=== PATIENT | male | born 1930 | race Caucasian/White ===

== ENCOUNTER → 2016-06-06 | Outpatient (CLI) | payer MEDICARE, BC ==
--- NOTE | 2016-06-06 13:39 | PN ---
DATE OF SERVICE: 06/06/2016 85-year-old gentleman who has been followed in the sleep center for treatment of obstructive sleep apnea-hypopnea syndrome and insomnia. Patient continued to use his BiPAP equipment every night for the whole night, pressure 8/5 cm of water. Recently patient had some problems with his machine and was checked and ( ) medical equipment company and at the present time machine according to the patient works well. He did not bring machine for his visit today. The patient continues to use Ambien at night to help him to fall asleep and he feels well with that. There is no any problem with sleep while he is using Ambien. [place] Sleepiness Scale is 8. MEDICATIONS: 1. Zoloft. 2. Hydrochlorothiazide. 3. Simvastatin. 4. Flomax. 5. Coreg. 6. Ambien. 7. Proscar. 8. Neurontin. 9. Baclofen. During physical exam, the patient in no distress. VITAL SIGNS: BP 116/60, HR 72, RR 18, height 5 feet 6 inches. Weight 231, weight is about 6 pounds more than during the previous visit. BMI 37.1. Neck 21 inches in circumference. Temp is 97.4. Oxygen saturation at room air 91%. HEENT: PERRLA, EOMI oropharynx low position of soft palate. HEART: Systolic murmur on aorta. Otherwise S1, S2 regular. ABDOMEN: Obese. EXTREMITIES: 1+ ankle edema. Patient has some difficulties to walk secondary to pain secondary to neuropathy in the lower part of his legs. IMPRESSION: 1. Obstructive sleep apnea-hypopnea syndrome. No snoring with the CPAP. No significant excessive daytime sleepiness. 2. Insomnia with difficulties to initiate sleep on control with low-dose of Ambien. 3. Hypertension. 4. Depression. 5. Obesity. Weight increase in about 6 pounds. 6. Hyperlipidemia. 7. History of acid reflux. 8. History of prostate cancer, 9. Status post back surgery. 10. Status post bilateral hip replacement. 11. 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 PLAN: 1. Continue treatment with BiPAP every night for the whole night. 2. Continue treatment with Ambien with the same low dose. 3. Watching and losing weight. 4. Sleep hygiene with regular time in bed for at least 8 hours. 5. Precautions related to driving. 6. No driving if feeling any sleepiness. 7. Fall precautions. 8. Follow-up visit in 6 months. Thank you very much for allowing me to participate in the management of your patient. The patient should bring his machine to check during the follow-up visit. Sincerely, Rory Smyth MD, PhD, FAASM. Diplomat of [place] [employer], Sleep Medicine Board by [place] [employer] [place] [employer] [facility] [place]
== END | disposition home or self-care (01) ==
LOC: SLEEP 11:12
PROVIDERS: ATTEND Internal Medicine
DX: G47.33 Obstructive sleep apnea (adult) (pediatric) (principal); E66.9 Obesity, unspecified; Z68.37 Body mass index [BMI] 37.0-37.9, adult; G47.00 Insomnia, unspecified; I10 Essential (primary) hypertension; F32.9 Major depressive disorder, single episode, unspecified; E78.5 Hyperlipidemia, unspecified; K21.9 Gastro-esophageal reflux disease without esophagitis; Z85.46 Personal history of malignant neoplasm of prostate; Z98.890 Other specified postprocedural states; Z96.643 Presence of artificial hip joint, bilateral; G62.9 Polyneuropathy, unspecified; Z79.899 Other long term (current) drug therapy

== ENCOUNTER → 2016-12-19 | Outpatient (CLI) | payer MEDICARE, BC ==
--- NOTE | 2016-12-20 07:57 | PN ---
PROGRESS NOTE Date of Service: DATE OF SERVICE: 12/19/2016. An 86-year-old gentleman who has been followed in the Sleep Center for treatment of obstructive sleep apnea-hypopnea syndrome. The patient is on treatment with BiPAP. Continues to use his equipment every night without significant problem although sometimes his mask goes off and he continues to use Ambien 5 mg at bedtime to help him to fall asleep. Without Ambien he cannot fall asleep. I checked his BiPAP unit. Usage is every night 30 out of 30 nights more than 4 hours a day. Average usage is 8 hours. BiPAP pressure is 8/5 cm of water. Apnea-hypopnea index for the last month is 20.0. For the last night 41.3. Leak is up to 25% for the last month. According to machine there is a possibility of 30% of periodic breathing. [place] Sleepiness Scale today is 4. Patient's weight today is 225 pounds, which is about 10 pounds more than during the previous BiPAP titration. I reviewed results of previous BiPAP titration also and present BiPAP pressure was effective at the time of previous titration. MEDICATIONS: Zoloft, Hydrochlorothiazide, simvastatin, Flomax, Coreg, Ambien, Proscar, Neurontin, baclofen. EXAM: During physical exam patient in no distress. BP 155/83, HR 74, RR 16. Height 5 feet 6. Weight 225 pounds. BMI is 36.3, temp 97.9, Oxygen saturation on room air 91%. HEENT PERRLA, EOMI, evaluation of oropharynx showed low position of soft palate. Neck Supple, no JVD. Thyroid is not palpable. LUNGS Clear to percussion and to auscultation. Good air exchange. No wheezing or rhonchi. HEART Systolic murmur on aorta. ABDOMEN Obese. Soft and nontender. Bowel sounds are present. No organomegaly appreciated. EXTREMITIES Basically no swelling of the legs. No clubbing or cyanosis. FISHING VESSEL OPERATOR Awake, alert, and oriented X3. Cranial nerves 2 to 7 intact. There is no fasciculation or atrophy. noted. No focal deficits observed. IMPRESSION: 1. Obstructive sleep apnea-hypopnea syndrome. The patient demonstrated 100% compliance with treatment, but according to reading from the machine he has some abnormalities of respirations at the present time at a significant level while using his BiPAP equipment. 2. Obesity. 3. Hypertension. 4. History of cardiac arrhythmia. 5. History of depression. 6. History of prostate carcinoma. 7. History of acid reflux. 8. Hyperlipidemia. 9. Status post back surgery. 10.Status post bilateral hip replacement. 11.History of peripheral neuropathy. PLAN: 1. Will repeat BiPAP titration for re-evaluation of affective BiPAP pressure at the present time, and possibly check for different type of mask. 2. Continue to use BiPAP equipment every night. 3. Losing weight. 4. Sleep hygiene with regular time in bed for at least 8 hours. 5. Precautions related to driving. No driving if feeling any sleepiness. 6. Followup visit after titration. Thank you very much for allowing me to participate in management of your patient. SAM / IJN: [id number] /
== END ==
LOC: SLEEP 10:49
PROVIDERS: ATTEND Internal Medicine
DX: G47.33 Obstructive sleep apnea (adult) (pediatric) (principal); E66.9 Obesity, unspecified; I10 Essential (primary) hypertension; I49.9 Cardiac arrhythmia, unspecified; F32.9 Major depressive disorder, single episode, unspecified; K21.9 Gastro-esophageal reflux disease without esophagitis; E78.5 Hyperlipidemia, unspecified; Z85.46 Personal history of malignant neoplasm of prostate; Z96.643 Presence of artificial hip joint, bilateral; Z98.890 Other specified postprocedural states; G62.9 Polyneuropathy, unspecified; Z79.899 Other long term (current) drug therapy

== ENCOUNTER → 2017-03-20 | Outpatient (CLI) | payer MEDICARE, BC ==
--- NOTE | 2017-03-20 18:13 | PN ---
PROGRESS NOTE DATE OF SERVICE: 03/20/2017 86-year-old gentleman has been followed in Sleep Center for treatment of obstructive sleep apnea-hypopnea syndrome. Results of the last CPAP titration recommended pressure of 15/11 cm of water of BiPAP. The patient is using his BiPAP unit. He came for followup visit today to check on how was everything working. He is able to use his machine every night, but sometimes according to the patient, the machine does not follow his respiration. When he is doing breath in, machine already starting to do it change the pressure for the exhalation visa versa. [place] Sleepiness Scale today is 3. I checked patient's unit. The patient using 25/30 nights for more than 4 hours. There is a high leak is 37%. Patient is using a full-face mask. Apnea-hypopnea index reading for the last month 9.1. For the last 7 days is 7.9. For the last night is 5.8. MEDICATIONS: Zoloft, hydrochlorothiazide, simvastatin, Flomax, Coreg, Proscar, Neurontin, Librax. PHYSICAL EXAM: Patient in no distress. BP 160/80, HR 78, RR 16, weight 223, temp 97.8, oxygen saturation on room air 93%, oropharynx low position of soft palate. Heart systolic murmur on aorta. ABDOMEN: Obese. Extremities 1+ ankle edema. Neck Supple, no JVD. Thyroid is not palpable. LUNGS Clear to percussion and to auscultation. Good air exchange. No wheezing or rhonchi. HEART S1, S2 regular. No murmurs, gallops, or rubs. ABDOMEN: Obese. Soft and nontender. Bowel sounds are present. No organomegaly appreciated. EXTREMITIES: No clubbing or cyanosis. HOSPITAL TRAY SERVICE WORKER Awake, alert, and oriented X3. Cranial nerves 2 to 7 intact. There is no fasciculation or atrophy. noted. No focal deficits observed. IMPRESSION: 1. Obstructive sleep apnea-hypopnea syndrome. The patient demonstrated great compliance with treatment benefitting from treatment. 2. According to patient no full synchronization of his breathing with the pressure in the machine. Sometimes machine makes the pressure for the exhalation and patient continued to do inhalation and vice versa. 3. History of severe periodic limb movements during titration. 4. Hypertension. 5. Obesity. 6. History of depression. 7. Hyperlipidemia. 8. History of prostate carcinoma. 9. History of acid reflux. 10.Status post back surgery. 11.Status post bilateral hip replacement. 12.Peripheral neuropathy. PLAN: 1. I will try to get for patient new BiPAP unit with the same pressure regimen of 15/11 cm of water to be sure that his respiration is currently with respiration in the machine. 2. We will consider to use different types of full face mask. 3. Continue to use BiPAP every night. 4. Sleep hygiene with regular time in bed for at least 8 hours. 5. No driving if feeling any sleepiness. 6. I want to check a oxygen level at night. Will consider to do oximetry on BiPAP to be sure that the patient oxygenation is normal. Thank you very much for allowing me to participate in management of your patient. Sincerely, Rory Smyth MD, PhD, FAASM Diplomat of [place] [employer] [place] [employer] Senior Business Development Manager of [facility] [place] MMODL / TAMIKON: [id number] /
== END ==
LOC: SLEEP 15:17
PROVIDERS: ATTEND Internal Medicine
DX: G47.33 Obstructive sleep apnea (adult) (pediatric) (principal); G47.61 Periodic limb movement disorder; I10 Essential (primary) hypertension; E66.9 Obesity, unspecified; F32.9 Major depressive disorder, single episode, unspecified; E78.5 Hyperlipidemia, unspecified; K21.9 Gastro-esophageal reflux disease without esophagitis; G62.9 Polyneuropathy, unspecified; Z96.643 Presence of artificial hip joint, bilateral; Z98.890 Other specified postprocedural states; Z85.46 Personal history of malignant neoplasm of prostate; Z79.899 Other long term (current) drug therapy

== ENCOUNTER 2017-07-12 17:09 | Inpatient (IN) | payer MEDICARE, BC ==
[2017-07-12] MEDS ORDERED: SODIUM CHLORIDE 0.9% 1,000 ML IV STA (18:57)
--- NOTE | 2017-07-12 19:00 | ED ---
General Adult HPI - General Chief complaint: Fall Stated complaint: Hypertensive Time Seen by Provider: 07/12/17 18:49 Source: patient, family, RN notes reviewed Mode of arrival: wheelchair Limitations: no limitations - History of Present Illness Initial comments: Patient is a pleasant 86-year-old male presenting to the emergency department concerns for blood pressure. Family took multiple readings today. Blood pressure has been as high as 180/110. Patient was given an extra dose of his Coreg today. Patient denies any significant injury however did fall twice. Patient does occasionally have falls. No head injury or loss of consciousness. No chest pain or weakness. - Related Data Home Medications Medication Instructions Recorded Confirmed CLIDINIUM-chlordiazePOXIDE [Librax] 1 - 2 tab PO DAILY 07/12/17 07/12/17 Carvedilol [Coreg] 6.25 mg PO BID 07/12/17 07/12/17 Ergocalciferol (Vitamin D2) 50,000 unit PO MO 07/12/17 07/12/17 [Vitamin D2] Finasteride [Proscar] 5 mg PO DAILY 07/12/17 07/12/17 Gabapentin [Neurontin] 200 mg PO BID 07/12/17 07/12/17 Hydrochlorothiazide [Hydrodiuril] 12.5 mg PO DAILY 07/12/17 07/12/17 Sertraline [Zoloft] 50 mg PO HS 07/12/17 07/12/17 Simvastatin [Zocor] 40 mg PO HS 07/12/17 07/12/17 Tamsulosin HCl [Flomax] 0.4 mg PO HS 07/12/17 07/12/17 Vit C/E/Zn/Coppr/Lutein/Zeaxan 1 cap PO HS 07/12/17 07/12/17 [Preservision Areds 2 Softgel] Zolpidem [Ambien] 5 mg PO HS 07/12/17 07/12/17 Allergies Allergy/AdvReac Type Severity Reaction Status Date / Time codeine AdvReac Hallucinati Verified 07/12/17 19:16 ons Review of Systems ROS Statement: Those systems with pertinent positive or pertinent negative responses have been documented in the HPI. ROS Other: All systems not noted in ROS Statement are negative. Constitutional: Denies: fever Eyes: Denies: eye pain ENT: Denies: ear pain Respiratory: Denies: cough Cardiovascular: Denies: chest pain Endocrine: Denies: fatigue Gastrointestinal: Denies: abdominal pain Genitourinary: Denies: dysuria Musculoskeletal: Denies: back pain Skin: Denies: rash Neurological: Denies: headache, weakness Past Medical History Past Medical History: Cancer, Hyperlipidemia, Hypertension, Sleep Apnea/CPAP/ BIPAP Additional Past Medical History / Comment(s): prostate cancer, IBS, irregular heartbeat History of Any Multi-Drug Resistant Organisms: None Reported Past Psychological History: No Psychological Hx Reported Smoking Status: Former smoker Past Alcohol Use History: None Reported Past Drug Use History: None Reported General Exam Limitations: no limitations General appearance: alert, in no apparent distress Head exam: Present: atraumatic Eye exam: Present: normal appearance, PERRL ENT exam: Present: normal oropharynx Neck exam: Present: normal inspection Respiratory exam: Present: normal lung sounds bilaterally Cardiovascular Exam: Present: irregular rhythm GI/Abdominal exam: Present: soft. Absent: tenderness Extremities exam: Present: normal inspection Neurological exam: Present: alert, CN II-XII intact. Absent: motor sensory deficit Psychiatric exam: Present: normal affect, normal mood Skin exam: Present: normal color Course Vital Signs 07/12/17 07/12/17 17:19 20:00 Temperature 98.1 F Pulse Rate 108 H 106 H Respiratory 20 Rate Blood Pressure 141/88 153/102 O2 Sat by Pulse 96 96 Oximetry EKG Findings - EKG Comments: EKG Findings:: Atrial fibrillation with rate of 94. QRS 92. QT 358. QTC 447. Left axis. Septal Q waves. Inferior Q waves. No acute ST change. Medical Decision Making - Medical Decision Making Patient reevaluated and resting comfortably in bed. Patient and family updated on results and plan. Secondary to slight elevation of troponin patient will be held for repeat testing. Case was discussed in detail with Dr. Macias, who will admit his patient. - Lab Data Result diagrams: 07/12/17 18:45 07/12/17 18:45 Lab Results 07/12/17 07/12/17 07/12/17 Range/Units 18:45 18:45 18:45 WBC 18.3 H (3.8-10.6) k/uL RBC 5.78 (4.30-5.90) m/uL Hgb 16.9 (13.0-17.5) gm/dL Hct 54.2 H (39.0-53.0) % MCV 93.7 (80.0-100.0) fL MCH 29.2 (25.0-35.0) pg MCHC 31.2 (31.0-37.0) g/dL RDW 13.7 (11.5-15.5) % Plt Count 462 H (150-450) k/uL Neutrophils % 83 % Lymphocytes % 8 % Monocytes % 7 % Eosinophils % 1 % Basophils % 0 % Neutrophils # 15.2 H (1.3-7.7) k/uL Lymphocytes # 1.4 (1.0-4.8) k/uL Monocytes # 1.3 H (0-1.0) k/uL Eosinophils # 0.1 (0-0.7) k/uL Basophils # 0.0 (0-0.2) k/uL PT (9.0-12.0) sec INR (<1.2) APTT (22.0-30.0) sec Sodium 140 (137-145) mmol/L Potassium 5.6 H (3.5-5.1) mmol/L Chloride 102 (98-107) mmol/L Carbon Dioxide 23 (22-30) mmol/L Anion Gap 15 mmol/L BUN 32 H (9-20) mg/dL Creatinine 1.10 (0.66-1.25) mg/dL Est GFR (CKD-EPI)AfAm 70 (>60 ml/min/1.73 sqM) Est GFR (CKD-EPI)NonAf 60 (>60 ml/min/1.73 sqM) Glucose 124 H (74-99) mg/dL Plasma Lactic Acid Miguel (0.7-2.0) mmol/L Calcium 9.9 (8.4-10.2) mg/dL Phosphorus 4.1 (2.5-4.5) mg/dL Magnesium 2.2 (1.6-2.3) mg/dL Total Bilirubin 0.5 (0.2-1.3) mg/dL AST 29 (17-59) U/L ALT 36 (21-72) U/L Alkaline Phosphatase 50 (38-126) U/L Total Creatine Kinase 32 L (55-170) U/L CK-MB (CK-2) 1.2 (0.0-2.4) ng/mL CK-MB (CK-2) Rel Index 3.8 Troponin I 0.039 H* (0.000-0.034) ng/mL Total Protein 8.1 (6.3-8.2) g/dL Albumin 4.3 (3.5-5.0) g/dL TSH 2.410 (0.465-4.680) mIU/L Free T4 1.04 (0.78-2.19) ng/dL Free T3 pg/mL 3.5 (2.8-5.3) pg/ml Urine Color Urine Appearance (Clear) Urine pH (5.0-8.0) Ur Specific [place] (1.001-1.035) Urine Protein (Negative) Urine Glucose (UA) (Negative) Urine Ketones (Negative) Urine Blood (Negative) Urine Nitrite (Negative) Urine Bilirubin (Negative) Urine Urobilinogen (<2.0) mg/dL Ur Leukocyte Esterase (Negative) Urine RBC (0-5) /hpf Urine WBC (0-5) /hpf Ur Squamous Epith Cells (0-4) /hpf Urine Bacteria (None) /hpf Hyaline Casts (0-2) /lpf Urine Mucus (None) /hpf 07/12/17 07/12/17 07/12/17 Range/Units 18:45 18:45 20:14 WBC (3.8-10.6) k/uL RBC (4.30-5.90) m/uL Hgb (13.0-17.5) gm/dL Hct (39.0-53.0) % MCV (80.0-100.0) fL MCH (25.0-35.0) pg MCHC (31.0-37.0) g/dL RDW (11.5-15.5) % Plt Count (150-450) k/uL Neutrophils % % Lymphocytes % % Monocytes % % Eosinophils % % Basophils % % Neutrophils # (1.3-7.7) k/uL Lymphocytes # (1.0-4.8) k/uL Monocytes # (0-1.0) k/uL Eosinophils # (0-0.7) k/uL Basophils # (0-0.2) k/uL PT 11.4 (9.0-12.0) sec INR 1.2 H (<1.2) APTT 26.7 (22.0-30.0) sec Sodium (137-145) mmol/L Potassium (3.5-5.1) mmol/L Chloride (98-107) mmol/L Carbon Dioxide (22-30) mmol/L Anion Gap mmol/L BUN (9-20) mg/dL Creatinine (0.66-1.25) mg/dL Est GFR (CKD-EPI)AfAm (>60 ml/min/1.73 sqM) Est GFR (CKD-EPI)NonAf (>60 ml/min/1.73 sqM) Glucose (74-99) mg/dL Plasma Lactic Acid Miguel 1.1 (0.7-2.0) mmol/L Calcium (8.4-10.2) mg/dL Phosphorus (2.5-4.5) mg/dL Magnesium (1.6-2.3) mg/dL Total Bilirubin (0.2-1.3) mg/dL AST (17-59) U/L ALT (21-72) U/L Alkaline Phosphatase (38-126) U/L Total Creatine Kinase (55-170) U/L CK-MB (CK-2) (0.0-2.4) ng/mL CK-MB (CK-2) Rel Index Troponin I (0.000-0.034) ng/mL Total Protein (6.3-8.2) g/dL Albumin (3.5-5.0) g/dL TSH (0.465-4.680) mIU/L Free T4 (0.78-2.19) ng/dL Free T3 pg/mL (2.8-5.3) pg/ml Urine Color Yellow Urine Appearance Cloudy (Clear) Urine pH 6.0 (5.0-8.0) Ur Specific [place] 1.015 (1.001-1.035) Urine Protein 2+ H (Negative) Urine Glucose (UA) Negative (Negative) Urine Ketones Negative (Negative) Urine Blood Negative (Negative) Urine Nitrite Negative (Negative) Urine Bilirubin Negative (Negative) Urine Urobilinogen <2.0 (<2.0) mg/dL Ur Leukocyte Esterase Negative (Negative) Urine RBC 1 (0-5) /hpf Urine WBC 4 (0-5) /hpf Ur Squamous Epith Cells <1 (0-4) /hpf Urine Bacteria Rare H (None) /hpf Hyaline Casts 3 H (0-2) /lpf Urine Mucus Rare H (None) /hpf - Radiology Data Radiology results: image reviewed (Chest x-ray shows basilar atelectasis or scarring. Correlate to exclude pneumonia. Follow-up suggested.) Disposition Clinical Impression: Hypertensive urgency Disposition: ADMITTED IP TO THIS HOSP Referrals: None,Stated [REFERRING] - 1-2 days Decision Time: 20:45
[2017-07-12 19:14] LABS: Basophils % (A) 0 %; Eosinophils # (A) 0.1 k/uL (0-0.7); Eosinophils % (A) 1 %; HCT 54.2 % (39.0-53.0); HGB 16.9 gm/dL (13.0-17.5); Lymphocytes # (A) 1.4 k/uL (1.0-4.8); Lymphocytes % (A) 8 %; MCH 29.2 pg (25.0-35.0); MCHC 31.2 g/dL (31.0-37.0); MCV 93.7 fL (80.0-100.0); Mean Platelet Volume 8.6; Monocytes # (A) 1.3 k/uL (0-1.0); Monocytes % (A) 7 %; Neutrophils # (A) 15.2 k/uL (1.3-7.7); Neutrophils % (A) 83 %; Platelet Count 462 k/uL (150-450); RBC 5.78 m/uL (4.30-5.90); RDW 13.7 % (11.5-15.5); WBC 18.3 k/uL (3.8-10.6)
--- NOTE | 2017-07-12 19:19 | XR ---
EXAMINATION TYPE: XR chest 2V DATE OF EXAM: 07/12/2017 COMPARISON: NONE HISTORY: Weakness and hypertension TECHNIQUE: Frontal and lateral views of the chest are obtained. FINDINGS: There are overlying cardiac leads and the patient is rotated. Heart is borderline enlarged . Patchy basilar density is noted. No evident pneumothorax or pleural effusion. Pulmonary vascularity and frederick within normal limits. Prominent lung lines may be indicative of COPD. IMPRESSION: Basilar atelectasis or scarring, correlate to exclude pneumonia. Follow-up suggested. Enrique rderline cardiomegaly.
[2017-07-12 19:26] LABS: Albumin 4.3 g/dL (3.5-5.0); Calcium 9.9 mg/dL (8.4-10.2); Magnesium 2.2 mg/dL (1.6-2.3); Phosphorus 4.1 mg/dL (2.5-4.5); Potassium 5.6 mmol/L (3.5-5.1); Total Bilirubin 0.5 mg/dL (0.2-1.3); Total Protein 8.1 g/dL (6.3-8.2)
[2017-07-12 19:33] LABS: INR 1.2 (<1.2); Partial Thromboplastin Time 26.7 sec (22.0-30.0); Prothrombin Time 11.4 sec (9.0-12.0)
[2017-07-12] MEDS ORDERED: METOPROLOL TARTRATE 5 MG/5 ML VIAL IVP STA ×2 (19:39→20:41)
[2017-07-12 19:40] LABS: T4, Free (Free Thyroxine) 1.04 ng/dL (0.78-2.19)
[2017-07-12] MEDS ORDERED: SODIUM CHLORIDE 0.9% 500 ML IV STA (19:45)
[2017-07-12 19:50] LABS: Creatine Kinase MB 1.2 ng/mL (0.0-2.4)
[2017-07-12 19:53] LABS: Troponin I 0.039 ng/mL (0.000-0.034)
[2017-07-12 20:31] LABS: Appearance,Urine Cloudy (Clear); Bacteria,Urine Rare /hpf; Bilirubin,Urine Negative (Negative); Blood,Urine Negative (Negative); Color,Urine Yellow; Glucose,Urine (UA) Negative (Negative); Hyaline Casts,Urine 3 /lpf (0-2); Ketones,Urine Negative (Negative); Leukocyte Esterase,Urine Negative (Negative); Mucus,Urine Rare /hpf; Nitrite,Urine Negative (Negative); Protein,Urine 2+ (Negative); RBC,Urine 1 /hpf (0-5); Specific Gravity,Urine 1.015 (1.001-1.035); Squamous Epithelial Cell,Urine <1 /hpf (0-4); Urobilinogen,Urine <2.0 mg/dL (<2.0); WBC,Urine 4 /hpf (0-5)
[2017-07-12] MEDS ORDERED: NALOXONE 0.4 MG/ML 1 ML VIAL IV PRN (20:46)
[2017-07-12] MEDS: CARVEDILOL 6.25 MG TAB PO SCH (21:34)
[2017-07-12] MEDS: HYDROCHLOROTHIAZIDE 12.5 MG CAP PO SCH (21:34)
[2017-07-12] MEDS ORDERED: ZOLPIDEM 5 MG TAB PO STA (23:02)
[2017-07-13 05:54] VITALS: BMI 32.0
[2017-07-13] MEDS: SODIUM CHLORIDE 0.9% 1,000 ML IV SCH ×2 (06:21→20:15)
[2017-07-13 07:33] LABS: HCT 51.9 % (39.0-53.0); HGB 16.7 gm/dL (13.0-17.5); MCH 30.4 pg (25.0-35.0); MCHC 32.2 g/dL (31.0-37.0); MCV 94.4 fL (80.0-100.0); Mean Platelet Volume 8.5; Platelet Count 464 k/uL (150-450); RDW 13.6 % (11.5-15.5); WBC 20.5 k/uL (3.8-10.6)
[2017-07-13 07:36] LABS: Calcium 9.5 mg/dL (8.4-10.2); Magnesium 2.2 mg/dL (1.6-2.3); Potassium 5.1 mmol/L (3.5-5.1)
[2017-07-13] MEDS: HYDROCHLOROTHIAZIDE 12.5 MG CAP PO SCH (08:42)
--- NOTE | 2017-07-13 09:15 | P.HPIM ---
History of Present Illness H&P Date: 07/13/17 Derian Harris is an 86 year-old male well known to my practice who presented to [facility] emergency room, due to elevated blood pressure readings, family were concerned about patient, he had multiple falls recently, and had significantly elevated blood pressure readings at home, he was given an extra pill of his Coreg at home without significant improvement in her blood pressure, he was brought into emergency room, patient was evaluated blood pressure was elevated at 180/110 patient also had mildly elevated troponin levels and leukocytosis he was admitted to telemetry floor for further evaluation cardiology consultation was requested. Chest x-ray on presentation was suspicious for pneumonia white blood count was 18,000 patient was started on IV Rocephin and IV Zithromax. Past medical history significant for #1 history of hypertension #2 history of hyperlipidemia #3 history of atrial fibrillation patient is not maintained on anticoagulation due to multiple falls #4 history of prostate cancer diagnosed more 20 years ago and no treatment was given patient was started on observation only and so far has had no significant morbidity related to his prostate cancer #5 history of osteoarthritis with bilateral hip surgery in the past Past Medical History Past Medical History: Atrial Fibrillation, Cancer, Hyperlipidemia, Hypertension , Sleep Apnea/CPAP/BIPAP Additional Past Medical History / Comment(s): prostate cancer, IBS History of Any Multi-Drug Resistant Organisms: None Reported Past Surgical History: Appendectomy, Orthopedic Surgery Additional Past Surgical History / Comment(s): back surgery, bilateral hip replacement Past Anesthesia/Blood Transfusion Reactions: No Reported Reaction Past Psychological History: No Psychological Hx Reported Smoking Status: Former smoker Past Alcohol Use History: None Reported Past Drug Use History: None Reported - Past Family History Mother Family Medical History: Cancer Additional Family Medical History / Comment(s): stomach cancer Father Family Medical History: CVA/TIA Medications and Allergies Home Medications Medication Instructions Recorded Confirmed Type CLIDINIUM-chlordiazePOXIDE [Librax] 1 - 2 tab PO DAILY 07/12/17 07/12/17 History Carvedilol [Coreg] 6.25 mg PO BID 07/12/17 07/12/17 History Ergocalciferol (Vitamin D2) 50,000 unit PO MO 07/12/17 07/12/17 History [Vitamin D2] Finasteride [Proscar] 5 mg PO DAILY 07/12/17 07/12/17 History Gabapentin [Neurontin] 200 mg PO BID 07/12/17 07/12/17 History Hydrochlorothiazide [Hydrodiuril] 12.5 mg PO DAILY 07/12/17 07/12/17 History Sertraline [Zoloft] 50 mg PO HS 07/12/17 07/12/17 History Simvastatin [Zocor] 40 mg PO HS 07/12/17 07/12/17 History Tamsulosin HCl [Flomax] 0.4 mg PO HS 07/12/17 07/12/17 History Vit C/E/Zn/Coppr/Lutein/Zeaxan 1 cap PO HS 07/12/17 07/12/17 History [Preservision Areds 2 Softgel] Zolpidem [Ambien] 5 mg PO HS 07/12/17 07/12/17 History Allergies Allergy/AdvReac Type Severity Reaction Status Date / Time codeine AdvReac Hallucinati Verified 07/12/17 19:16 ons Physical Exam Vitals: Vital Signs Temp Pulse Pulse Resp BP BP BP 07/13/17 08:00 97.6 F 97 20 133/100 164/107 07/13/17 06:25 96 18 07/13/17 05:37 97.8 F 96 18 138/90 07/13/17 05:04 95 18 157/77 07/13/17 01:12 93 18 138/74 07/12/17 23:06 101 H 18 137/83 07/12/17 22:19 98 18 146/90 07/12/17 20:40 107 H 18 173/97 07/12/17 20:00 106 H 153/102 07/12/17 17:19 98.1 F 108 H 20 141/88 Pulse Ox 07/13/17 08:00 94 L 07/13/17 06:25 07/13/17 05:37 95 07/13/17 05:04 98 07/13/17 01:12 94 L 07/12/17 23:06 95 07/12/17 22:19 94 L 07/12/17 20:40 98 07/12/17 20:00 96 07/12/17 17:19 96 Intake and Output 07/12/17 07/13/17 07/13/17 22:59 06:59 14:59 Intake Total 120 Output Total 150 100 Balance -150 20 Intake: Oral 120 Output: Urine 150 100 Other: Voiding Method Urinal # Voids 1 Weight 104.326 kg 101.3 kg In general patient is alert and oriented 3 hard of hearing HEENT head normocephalic and atraumatic Neck is supple no JVD no goiter no lymphadenopathy Chest exam reveals a few scattered crackles bilaterally no wheezing Cardiac exam reveals regular heart sounds S1 and S2 no gallops no murmurs Abdomen is soft nontender no organomegaly with normal bowel sounds there is extensive yeast infection in the groin area Extremity exam reveals no edema no cyanosis or clubbing Neurological examination reveals no gross focal deficit Results CBC & Chem 7: 07/13/17 06:09 07/13/17 06:09 Labs: Abnormal Lab Results - Last 24 Hours (Table) 07/12/17 07/12/17 07/12/17 Range/Units 18:45 18:45 18:45 WBC 18.3 H (3.8-10.6) k/uL Hct 54.2 H (39.0-53.0) % Plt Count 462 H (150-450) k/uL Neutrophils # 15.2 H (1.3-7.7) k/uL Monocytes # 1.3 H (0-1.0) k/uL INR (<1.2) Potassium 5.6 H (3.5-5.1) mmol/L BUN 32 H (9-20) mg/dL Glucose 124 H (74-99) mg/dL Total Creatine Kinase 32 L (55-170) U/L Troponin I 0.039 H* (0.000-0.034) ng/mL Urine Protein (Negative) Urine Bacteria (None) /hpf Hyaline Casts (0-2) /lpf Urine Mucus (None) /hpf 07/12/17 07/12/17 07/13/17 Range/Units 18:45 20:14 00:51 WBC (3.8-10.6) k/uL Hct (39.0-53.0) % Plt Count (150-450) k/uL Neutrophils # (1.3-7.7) k/uL Monocytes # (0-1.0) k/uL INR 1.2 H (<1.2) Potassium (3.5-5.1) mmol/L BUN (9-20) mg/dL Glucose (74-99) mg/dL Total Creatine Kinase (55-170) U/L Troponin I 0.039 H* (0.000-0.034) ng/mL Urine Protein 2+ H (Negative) Urine Bacteria Rare H (None) /hpf Hyaline Casts 3 H (0-2) /lpf Urine Mucus Rare H (None) /hpf 07/13/17 07/13/17 07/13/17 Range/Units 06:09 06:09 06:09 WBC 20.5 H (3.8-10.6) k/uL Hct (39.0-53.0) % Plt Count 464 H (150-450) k/uL Neutrophils # (1.3-7.7) k/uL Monocytes # (0-1.0) k/uL INR (<1.2) Potassium (3.5-5.1) mmol/L BUN 32 H (9-20) mg/dL Glucose 117 H (74-99) mg/dL Total Creatine Kinase (55-170) U/L Troponin I 0.044 H* (0.000-0.034) ng/mL Urine Protein (Negative) Urine Bacteria (None) /hpf Hyaline Casts (0-2) /lpf Urine Mucus (None) /hpf Thrombosis Risk Factor Assmnt - Choose All That Apply Each Factor Represents 1 point: Swollen legs (current) Each Risk Factor Represents 3 Points: Age 75 years or older Thrombosis Risk Factor Assessment Total Risk Factor Score: 4 Thrombosis Risk Factor Assessment Level: Moderate Risk Assessment and Plan Plan: #1 hypertension was hypertensive emergency on presentation #2 elevated troponin levels #3 leukocytosis #4 chest x-ray suggestive of pneumonia #5 underlying history of prostate cancer #6 atrial fibrillation heart rate is well-controlled patient is not on any anticoagulation due to multiple falls #7 underlying history of hyperlipidemia maintained on simvastatin At this time patient was started on IV Rocephin and IV Zithromax Will monitor white blood count repeat chest x-ray PA and lateral today Cardiology consultation was requested in regard to hypertensive emergency and elevated troponin level Continue current medications otherwise will follow closely
[2017-07-13] MEDS: AZITHROMYCIN 500 MG in SODIUM CHLORIDE 0.9% 250 ML IVPB SCH (09:46)
[2017-07-13] MEDS: cefTRIAXone IN SWFI 1,000 MG/10 ML SYRINGE IVP SCH (09:46)
--- NOTE | 2017-07-13 10:07 | CONS ---
CONSULTATION CHIEF COMPLAINT: Uncontrolled hypertension. Derian is an 86-year-old gentleman with history of hypertension, dyslipidemia, atrial fibrillation, who presented to the hospital due to elevated blood pressures. The patient also has had recent recurrent falls at home. When he came to the emergency room, his blood pressure was 180/110, but he also has elevated white cell count due to which there was a concern, suspicion for pneumonia and he had been started on IV antibiotics. I am consulted for the elevated blood pressures. The patient denies chest pain, difficulty breathing, palpitations, or syncope. Blood pressure is around 164/107. Since admission, he has had 3 sets of troponins that are all in the sharma zone at 0.03 and there is no clinical significance. He is mildly intravascularly volume depleted with a BUN of 32 and creatinine of 1.1. White cell count is high at 20.5, and this is currently being managed by Dr. Macias. I am going to adjust the antihypertensive for more optimal blood pressure control. Patient is on Coreg. I will add Norvasc 10 mg daily for better blood pressure control. PAST MEDICAL HISTORY: Significant for hypertension, chronic atrial fibrillation. The patient is not a candidate for anticoagulation because of recurrent falls. There is history of CA of prostate too. CURRENT MEDICATIONS: Include vitamin D, Ambien, Coreg, Zocor, Zoloft, HydroDIURIL, Proscar, Flomax, and Neurontin. ALLERGIES: ALLERGIC TO CODEINE. FAMILY HISTORY: Negative for premature coronary artery disease. SOCIAL HISTORY: Negative for smoking, EtOH abuse, or drug abuse. REVIEW OF SYSTEMS: HEENT is unremarkable. Cardiac as described above. Respiratory negative. GI negative. negative. ALLERGY/Immunology: Negative. Skin negative. Musculoskeletal significant for arthritis. Psychosocial negative. Endocrine negative. Derm negative. Constitutional negative. Oncological negative. Rest of the system review is not relevant. PHYSICAL EXAM: The patient is afebrile. Heart rate is 97 irregular. Blood pressure is 160/77, respirations 18. Chest exam reveals diminished air entry bilaterally. Heart exam reveals first and second heart sounds. Irregular rhythm and a systolic murmur at the left lower sternal border. ABDOMEN: Soft. Exam of the extremities did not reveal any edema. Peripheral pulses are felt. LAB: Showed that the white cell count is elevated. Potassium is 5.1, BUN is 32, creatinine is 1.1, tropes are in the sharma zone. TSH is normal. ASSESSMENT: 1. Uncontrolled hypertension. 2. Recurrent falls with elevated white cell count. 3. Questionable pneumonia. 4. Chronic atrial fibrillation. PLAN: I am going to obtain a 2D echo on him and start him on Norvasc for optimal control of blood pressure. He is being treated for pneumonia by Dr. Macias. MMNATALIEL / TAMIKON: [id number] /
--- NOTE | 2017-07-13 11:44 | XR ---
EXAMINATION TYPE: XR chest 2V DATE OF EXAM: 07/13/2017 HISTORY: leukocytosis. REFERENCE: Previous study dated 07/12/2017. FINDINGS: The lungs are overinflated. The heart is enlarged. There is bibasilar airspace disease eith er representing atelectasis or pneumonia. I cannot exclude small effusions. IMPRESSION: 1. COPD. 2. CARDIOMEGALY. 3. BIBASILAR AIRSPACE DISEASE. 4. I CANNOT EXCLUDE SMALL, BILATERAL EFFUSIONS.
[2017-07-13] MEDS: NYSTATIN 100,000 UNIT/GM POWD 15 GM TOPICAL SCH ×2 (11:46→20:15)
[2017-07-13] MEDS: FINASTERIDE 5 MG TAB PO SCH (11:46)
[2017-07-13] MEDS: CARVEDILOL 6.25 MG TAB PO SCH (16:57)
[2017-07-13] MEDS ORDERED: DIPHENOX-ATROP 2.5-0.025 MG 1 EACH TAB PO PRN (17:08)
[2017-07-13] MEDS: ATORVASTATIN 20 MG TAB PO SCH (20:14)
[2017-07-13] MEDS: GABAPENTIN 100 MG CAP PO SCH (20:14)
[2017-07-13] MEDS: CLIDINIUM-chlordiazePOXIDE (2.5-5 MG) CAP PO SCH (20:14)
[2017-07-13] MEDS: VIT A,C & E-LUTEIN-MINERALS 1 EACH TAB PO SCH (20:14)
[2017-07-13] MEDS: SERTRALINE 50 MG TAB PO SCH (20:14)
[2017-07-13] MEDS: TAMSULOSIN 0.4 MG CAP.ER.24H PO SCH (20:14)
[2017-07-13] MEDS: ZOLPIDEM 5 MG TAB PO SCH (20:15)
[2017-07-14 06:21] LABS: Basophils # (A) 0.1 k/uL (0-0.2); Basophils % (A) 0 %; Eosinophils # (A) 0.1 k/uL (0-0.7); Eosinophils % (A) 0 %; HGB 17.3 gm/dL (13.0-17.5); Lymphocytes # (A) 1.8 k/uL (1.0-4.8); Lymphocytes % (A) 9 %; MCHC 32.1 g/dL (31.0-37.0); MCV 93.5 fL (80.0-100.0); Mean Platelet Volume 7.9; Monocytes # (A) 2.5 k/uL (0-1.0); Monocytes % (A) 12 %; Neutrophils # (A) 15.5 k/uL (1.3-7.7); Neutrophils % (A) 75 %; Platelet Count 438 k/uL (150-450); RBC 5.78 m/uL (4.30-5.90); RDW 13.4 % (11.5-15.5); WBC 20.7 k/uL (3.8-10.6)
[2017-07-14 06:29] LABS: Calcium 9.6 mg/dL (8.4-10.2); Potassium 5.3 mmol/L (3.5-5.1); Total Bilirubin 1.2 mg/dL (0.2-1.3); Total Protein 7.4 g/dL (6.3-8.2)
[2017-07-14] MEDS: CARVEDILOL 6.25 MG TAB PO SCH ×2 (06:52→17:18)
[2017-07-14] MEDS ORDERED: SODIUM POLYSTYRENE SULFONATE 15 GM/60 ML BOTTLE PO STA (08:21)
[2017-07-14] MEDS ORDERED: ERGOCALCIFEROL 50,000 UNIT CAP PO SCH (09:00)
[2017-07-14] MEDS ORDERED: IPRATROPIUM-ALBUTEROL 3 ML NEB INHALATION PRN (09:28)
[2017-07-14] MEDS: cefTRIAXone IN SWFI 1,000 MG/10 ML SYRINGE IVP SCH (10:23)
[2017-07-14] MEDS: CLIDINIUM-chlordiazePOXIDE (2.5-5 MG) CAP PO SCH ×2 (10:24→21:08)
[2017-07-14] MEDS: AZITHROMYCIN 500 MG in SODIUM CHLORIDE 0.9% 250 ML IVPB SCH (10:24)
[2017-07-14] MEDS: HYDROCHLOROTHIAZIDE 12.5 MG CAP PO SCH (10:25)
[2017-07-14] MEDS: GABAPENTIN 100 MG CAP PO SCH ×2 (10:25→20:54)
[2017-07-14] MEDS: FINASTERIDE 5 MG TAB PO SCH (10:25)
--- NOTE | 2017-07-14 11:37 | P.PN ---
Subjective Progress Note Date: 07/14/17 Principal diagnosis: Hypertension This is an 86-year-old gentleman with history of hypertension, hyperlipidemia, chronic persistent atrial fibrillation, who presented to the hospital secondary to elevated blood pressures. Patient also has had recurrent falls at home. On arrival here his blood pressure was noted to be 180/110, patient also was noted to have infiltrates on his chest x-ray with associated elevated white blood cell count and is receiving treatment currently for pneumonia. Blood pressure this morning 112/70. Patient feels well overall, he states he continues to have a mild cough, breathing is stable. White blood cell count 20.7, hemoglobin 17.3, platelet count 4:30, potassium 5.3, BUN 29, creatinine 1.0. TSH 2.4 free T4 1 0.04. Objective - Vital Signs Vital signs: Vital Signs Temp 96.0 F L 07/14/17 08:05 Pulse 85 07/14/17 08:05 Resp 18 07/14/17 08:05 BP 122/83 07/14/17 08:05 Pulse Ox 90 L 07/14/17 08:05 Intake & Output 07/13/17 07/14/17 07/14/17 18:59 06:59 18:59 Intake Total 597 10 222 Output Total 400 300 Balance 197 10 -78 Weight 100.5 kg Intake: IV 10 0.9 10 Oral 597 222 Output: Urine 400 300 Other: Voiding Method Urinal Urinal Urinal # Voids 1 1 # Bowel Movements 1 - Exam PHYSICAL EXAMINATION: HEENT: Head is atraumatic, normocephalic. Pupils equal, round. Neck is supple. There is no elevated jugular venous pressure. HEART EXAMINATION: Heart S1 and S2 irregularly irregular a systolic murmur is heard. CHEST EXAMINATION: Lungs are clear with diminished air entry to bilateral bases , fine crackles audible to the bases. ABDOMEN: Soft, nontender. Bowel sounds are heard. No organomegaly noted. EXTREMITIES: 2+ peripheral pulses with no evidence of peripheral edema and no calf tenderness noted. NEUROLOGIC patient is awake, alert and oriented -3. . - Labs CBC & Chem 7: 07/14/17 05:44 07/14/17 05:44 Labs: Abnormal Lab Results - Last 24 Hours (Table) 07/14/17 07/14/17 Range/Units 05:44 05:44 WBC 20.7 H (3.8-10.6) k/uL Hct 54.0 H (39.0-53.0) % Neutrophils # 15.5 H (1.3-7.7) k/uL Monocytes # 2.5 H (0-1.0) k/uL Potassium 5.3 H (3.5-5.1) mmol/L BUN 29 H (9-20) mg/dL Glucose 125 H (74-99) mg/dL Assessment and Plan Plan: Assessment and plan #1 uncontrolled hypertension #2 pneumonia #3 chronic persistent atrial fibrillation #4 hyperlipidemia Plan Cardiology's perspective we will recommend to continue the patient on his current medications. He may be able to be discharged once cleared by the primary. We'll make a follow-up appointment post discharge. DNP note has been reviewed, I agree with a documented findings and plan of care. Patient was seen and examined.
--- NOTE | 2017-07-14 11:43 | P.PN ---
Subjective Progress Note Date: 07/14/17 Derian Harris is an 86 year-old male well known to my practice who presented to [facility] emergency room, due to elevated blood pressure readings, family were concerned about patient, he had multiple falls recently, and had significantly elevated blood pressure readings at home, he was given an extra pill of his Coreg at home without significant improvement in her blood pressure, he was brought into emergency room, patient was evaluated blood pressure was elevated at 180/110 patient also had mildly elevated troponin levels and leukocytosis he was admitted to telemetry floor for further evaluation cardiology consultation was requested. Chest x-ray on presentation was suspicious for pneumonia white blood count was 18,000 patient was started on IV Rocephin and IV Zithromax. 07/14/2017 patient has been cleared by cardiology for discharge. However, patient is wheezing more today and having some shortness of breath. White count is up to 20.7. His hypertension has improved. Potassium 5.3 awaiting repeat potassium level. Patient denies any chest pain, nausea or vomiting, urinary symptoms. Had a bowel movement that was loose yesterday Objective - Vital Signs Vital signs: Vital Signs Temp 96.0 F L 07/14/17 08:05 Pulse 85 07/14/17 08:05 Resp 18 07/14/17 08:05 BP 122/83 07/14/17 08:05 Pulse Ox 90 L 07/14/17 08:05 Intake & Output 07/13/17 07/14/17 07/14/17 18:59 06:59 18:59 Intake Total 597 10 222 Output Total 400 300 Balance 197 10 -78 Weight 100.5 kg Intake: IV 10 0.9 10 Oral 597 222 Output: Urine 400 300 Other: Voiding Method Urinal Urinal Urinal # Voids 1 1 # Bowel Movements 1 - Exam Head normocephalic Neck supple Lungs wheezing anteriorly and posteriorly Heart irregular. A. fib on monitor Abdomen is soft nontender nondistended positive bowel sounds no hepatosplenomegaly Extremities no edema Neuro alert and orientated to 3 - Labs CBC & Chem 7: 07/14/17 05:44 07/14/17 05:44 Labs: Abnormal Lab Results - Last 24 Hours (Table) 07/14/17 07/14/17 Range/Units 05:44 05:44 WBC 20.7 H (3.8-10.6) k/uL Hct 54.0 H (39.0-53.0) % Neutrophils # 15.5 H (1.3-7.7) k/uL Monocytes # 2.5 H (0-1.0) k/uL Potassium 5.3 H (3.5-5.1) mmol/L BUN 29 H (9-20) mg/dL Glucose 125 H (74-99) mg/dL Assessment and Plan Assessment: #1 hypertension was hypertensive emergency on presentation. Patient seen by cardiology. Blood pressures have improved #2 elevated troponin levels. Evaluated by cardiology results are of no clinical significance. [place] ruled out. #3 leukocytosis likely secondary to pneumonia. #4 community-acquired pneumonia: Continue with Rocephin and azithromycin. Patient now having some wheezing will add nebulizer treatments #5 underlying history of prostate cancer #6 chronic atrial fibrillation heart rate is well-controlled patient is not on any anticoagulation due to multiple falls #7 underlying history of hyperlipidemia maintained on simvastatin #8 hyperkalemia: We'll repeat potassium level if remains elevated will give Kayexalate Consult physical therapy for unsteady gait DVT prophylaxis subcu heparin We'll monitor patient for another 24 hours due to the wheezing. Anticipate discharge within the next 1-2 days. I performed an examination of the patient and discussed their management with the physician Phytopathologist. I have reviewed the Physician Phytopathologist's notes and agree with the documented findings and plan of care
[2017-07-14] MEDS: NYSTATIN 100,000 UNIT/GM POWD 15 GM TOPICAL SCH ×2 (12:23→20:58)
--- NOTE | 2017-07-14 13:03 | ECHOF ---
Referral Reason:htn MEASUREMENTS -------- HEIGHT: 177.8 cm WEIGHT: 100.2 kg BP: 112/73 RVIDd: 2.7 cm (< 3.3) IVSd: 2.3 cm (0.6 - 1.1) LVIDd: 2.9 cm (3.9 - 5.3) LVPWd: 1.6 cm (0.6 - 1.1) IVSs: 2.3 cm LVIDs: 1.4 cm LVPWs: 1.7 cm LAESV Index (A-L): 42.23 ml/m Ao Diam: 3.5 cm (2.0 - 3.7) AV Cusp: 1.1 cm (1.5 - 2.6) LA Diam: 3.4 cm (2.7 - 3.8) MV E Magdi: 1.31 m/s MV DecT: 210 ms MV A Magdi: 0.30 m/s MV E/A Ratio: 4.30 AV maxP.87 mmHg AV meanP.35 mmHg RAP: 5.00 mmHg RVSP: 38.78 mmHg FINDINGS -------- Atrial fibrillation. This was a technically good study. The left ventricular size is normal. There is severe concentric left ventricular hypertrophy. Ove rall left ventricular systolic function is mild-moderately impaired with, an EF between 40 - 45 %. The right ventricle is normal in size and function. LA is severely dilated >40 ml/m2 The right atrium is normal in size. Aortic valve is trileaflet and is moderately thickened. Mild aortic stenosis with peak/mean pressur e gradient of 23.87mmHg / 16.35mmHg , the aortic valve area by continuity equation is 1.0cm. Peak/ mean gradient across the Aortic Valve is 23.87mmHg / 16.35mmHg. The mitral valve leaflets are mildly thickened. Mild mitral annular calcification present. Mild m itral regurgitation is present. Mild tricuspid regurgitation present. There is borderline pulmonary hypertension. The right ventr icular systolic pressure, as measured by Doppler, is 38.78mmHg. Pulmonic valve appears structurally normal. The aortic root size is normal. The inferior vena cava is mildly dilated. The pericardium is normal. CONCLUSIONS -------- 1. Atrial fibrillation. 2. This was a technically good study. 3. The left ventricular size is normal. 4. There is severe concentric left ventricular hypertrophy. 5. The right ventricle is normal in size and function. 6. LA is severely dilated >40 ml/m2 7. The right atrium is normal in size. 8. Aortic valve is trileaflet and is moderately thickened. 9. Peak/mean gradient across the Aortic Valve is 23.87mmHg / 16.35mmHg. 10. The mitral valve leaflets are mildly thickened. 11. Mild mitral annular calcification present. 12. Mild mitral regurgitation is present. 13. Mild tricuspid regurgitation present. 14. There is borderline pulmonary hypertension. 15. The right ventricular systolic pressure, as measured by Doppler, is 38.78mmHg. 16. Pulmonic valve appears structurally normal. 17. The aortic root size is normal. 18. The inferior vena cava is mildly dilated. 19. The pericardium is normal. CONE TRUCKER: Casandra Ragland RDCS
[2017-07-14] MEDS: IPRATROPIUM-ALBUTEROL 3 ML NEB INHALATION SCH ×3 (13:36→20:26)
[2017-07-14] MEDS: TAMSULOSIN 0.4 MG CAP.ER.24H PO SCH (20:54)
[2017-07-14] MEDS: SERTRALINE 50 MG TAB PO SCH (20:54)
[2017-07-14] MEDS: VIT A,C & E-LUTEIN-MINERALS 1 EACH TAB PO SCH (20:55)
[2017-07-14] MEDS: ATORVASTATIN 20 MG TAB PO SCH (20:55)
[2017-07-14] MEDS: SODIUM CHLORIDE 0.9% 1,000 ML IV SCH (20:55)
[2017-07-14] MEDS: ZOLPIDEM 5 MG TAB PO SCH (20:58)
[2017-07-14] MEDS: HEPARIN SODIUM,PORCINE 5,000 UNIT/ML 1 ML VIAL SQ SCH (20:58)
[2017-07-15] MEDS: IPRATROPIUM-ALBUTEROL 3 ML NEB INHALATION SCH ×3 (07:50→16:07)
[2017-07-15 08:03] LABS: Basophils % (A) 0 %; Eosinophils # (A) 0.1 k/uL (0-0.7); Eosinophils % (A) 1 %; HCT 53.1 % (39.0-53.0); HGB 16.5 gm/dL (13.0-17.5); Lymphocytes # (A) 1.6 k/uL (1.0-4.8); Lymphocytes % (A) 11 %; MCH 29.2 pg (25.0-35.0); MCHC 31.1 g/dL (31.0-37.0); MCV 93.6 fL (80.0-100.0); Mean Platelet Volume 8.6; Monocytes # (A) 1.4 k/uL (0-1.0); Monocytes % (A) 9 %; Neutrophils # (A) 12.1 k/uL (1.3-7.7); Neutrophils % (A) 77 %; Platelet Count 429 k/uL (150-450); RBC 5.66 m/uL (4.30-5.90); RDW 13.5 % (11.5-15.5); WBC 15.7 k/uL (3.8-10.6)
[2017-07-15] MEDS: CLIDINIUM-chlordiazePOXIDE (2.5-5 MG) CAP PO SCH (08:39)
[2017-07-15] MEDS: CARVEDILOL 6.25 MG TAB PO SCH (08:39)
[2017-07-15] MEDS: HEPARIN SODIUM,PORCINE 5,000 UNIT/ML 1 ML VIAL SQ SCH (08:40)
[2017-07-15] MEDS: GABAPENTIN 100 MG CAP PO SCH (08:40)
[2017-07-15] MEDS: FINASTERIDE 5 MG TAB PO SCH (08:40)
[2017-07-15] MEDS: NYSTATIN 100,000 UNIT/GM POWD 15 GM TOPICAL SCH (08:41)
[2017-07-15] MEDS: HYDROCHLOROTHIAZIDE 12.5 MG CAP PO SCH (08:41)
[2017-07-15 08:44] LABS: Calcium 9.2 mg/dL (8.4-10.2); Potassium 5.5 mmol/L (3.5-5.1)
[2017-07-15] MEDS: cefTRIAXone IN SWFI 1,000 MG/10 ML SYRINGE IVP SCH (08:44)
[2017-07-15 08:45] VITALS: RESP 18
[2017-07-15] MEDS ORDERED: AZITHROMYCIN 500 MG TAB PO SCH (09:00)
[2017-07-15] MEDS ORDERED: SODIUM POLYSTYRENE SULFONATE 15 GM/60 ML BOTTLE PO STA (11:01)
--- NOTE | 2017-07-15 12:35 | CDI ---
Last Revision, March 2017 Documentation Clarification Form Date: 07/15/2017 From: Cassandra CALE Lance, CCDS Admit Date: 07/14/2017 9:36:00 AM Patient Name: Derian Harris Visit Number: [id number] Discharge Date: ATTENTION: The Clinical Documentation Specialists (CDI) and [facility] Coding Staff appreciate your assistance in clarifying documentation. Please respond to the clarification below the line at the bottom and electronically sign. The CDI & [facility] Coding staff will review the response and follow-up if needed. Please note: Queries are made part of the Legal Health Record. If you have any questions, please contact the author of this message via ITS. Dr. Vanessa Macias: 86 yo presented to ER with elevated BP: 180/110 at home, 141/88 in ER. Diagnosed with hypertensive emergency & pneumonia. History: Hypertension, Hyperlipidemia, Prostate CA, A Fib (no anticoagulation) Clinical Indicators: BP: 141/88, 153/102, 173/97, 157/77 LAB: WBC 18.3, INR 1.2, K 5.6, BUN 32, (Cr 1.10) RAD: CXR: suspected pneumonia. Treatment: IV Lopressor x2, IV fluid bolus, IV Rocephin & po Azithromycin, Telemetry, Cardiology Please clarify the type of hypertension you treated the patient for: Crisis (May or may not indicate organ damage) Emergency (Hypertensive emergency indicates organ damage) Urgency (may or may not indicate organ damage) Other (please specify in the medical record) Clinically unable to further specify Please continue to document in your progress notes and discharge summary in order to capture severity of illness and risk of mortality. Include clinical findings that support your diagnosis. MTDD
[2017-07-15 15:35] VITALS: BP 112/73; PULSE 115; TEMP 97.7
--- NOTE | 2017-07-15 16:44 | P.DS ---
Providers Date of admission: 07/14/17 09:36 Expected date of discharge: 07/15/17 Attending physician: Vanessa Macias Consults: 07/13/17 08:56 Consult Physician Routine Consulting Provider: Delvis Nieves Consult Reason/Comments: elevated troponin, hypertensive urgency Do you want consulting provider notified?: Yes Primary care physician: Vanessa Gilberto [place] Hospital Course: Discharge diagnosis #1 hypertension was hypertensive emergency on presentation. Patient seen by cardiology. Blood pressures have improved #2 elevated troponin levels. Evaluated by cardiology results are of no clinical significance. CA ruled out. #3 leukocytosis likely secondary to pneumonia. Trending down white count at discharge 15.7 #4 community-acquired pneumonia: Patient will be discharged with Ceftin 500 mg twice a day for 10 days #5 underlying history of prostate cancer #6 chronic atrial fibrillation heart rate is well-controlled patient is not on any anticoagulation due to multiple falls #7 underlying history of hyperlipidemia maintained on simvastatin #8 hyperkalemia: Patient given Kayexalate. Recommend checking potassium level in 1 week in the office #9 COPD with mild exacerbation. Improved with nebulizer treatments. Patient will be discharged home with Symbicort and albuterol Hospital course Derian Harris is an 86 year-old male well known to my practice who presented to [facility] emergency room, due to elevated blood pressure readings, family were concerned about patient, he had multiple falls recently, and had significantly elevated blood pressure readings at home, he was given an extra pill of his Coreg at home without significant improvement in her blood pressure, he was brought into emergency room, patient was evaluated blood pressure was elevated at 180/110 patient also had mildly elevated troponin levels and leukocytosis he was admitted to telemetry floor for further evaluation cardiology consultation was requested. Chest x-ray on presentation was suspicious for pneumonia white blood count was 18,000 patient was started on IV Rocephin and IV Zithromax. Patient was evaluated by cardiology. They recommended to continue his current medications. Blood pressures results on their own. Patient also being treated for pneumonia with Rocephin and azithromycin. His cough has improved. Chest x- ray also showed evidence of COPD. He had been having some wheezing was placed on nebulizer treatments and wheezing has improved as well as the shortness of breath. He has been up and ambulating with physical therapy and the recommending home with home care. Patient's white count is trending down. Echo showed an EF of 40-45%. And he is cleared by cardiology for discharge. She will continue with Ceftin for 10 more days to complete treatment for his pneumonia. We'll also add Symbicort and albuterol inhaler for his COPD. Patient had been on Symbicort in the past. Patient is medically stable for discharge. I performed an examination of the patient and discussed their management with the physician Swimming Instructor. I have reviewed the Physician Swimming Instructor's notes and agree with the documented findings and plan of care Patient Condition at Discharge: Stable Plan - Discharge Summary New Discharge Prescriptions: New Albuterol Inhaler [Ventolin Hfa Inhaler] 1 - 2 puff INHALATION Q6HR PRN #1 inhaler PRN Reason: Shortness Of Breath Budesonide-Formot 160-4.5 Mcg [Symbicort 160-4.5 Mcg Inhaler] 2 puff INHALATION BID #1 inhaler Cefuroxime Axetil [Ceftin] 500 mg PO BID #20 tab Nystatin 100,000 Unit/gm Powd [Mycostatin Powder] 1 applic TOPICAL BID #1 can Continue Zolpidem [Ambien] 5 mg PO HS CLIDINIUM-chlordiazePOXIDE [Librax] 1 - 2 tab PO DAILY Vit C/E/Zn/Coppr/Lutein/Zeaxan [Preservision Areds 2 Softgel] 1 cap PO HS Carvedilol [Coreg] 6.25 mg PO BID Simvastatin [Zocor] 40 mg PO HS Sertraline [Zoloft] 50 mg PO HS Hydrochlorothiazide [Hydrodiuril] 12.5 mg PO DAILY Finasteride [Proscar] 5 mg PO DAILY Tamsulosin HCl [Flomax] 0.4 mg PO HS Gabapentin [Neurontin] 200 mg PO BID Ergocalciferol (Vitamin D2) [Vitamin D2] 50,000 unit PO MO Discharge Medication List CLIDINIUM-chlordiazePOXIDE [Librax] 1 - 2 tab PO DAILY 07/12/17 [History] Carvedilol [Coreg] 6.25 mg PO BID 07/12/17 [History] Ergocalciferol (Vitamin D2) [Vitamin D2] 50,000 unit PO MO 07/12/17 [History] Finasteride [Proscar] 5 mg PO DAILY 07/12/17 [History] Gabapentin [Neurontin] 200 mg PO BID 07/12/17 [History] Hydrochlorothiazide [Hydrodiuril] 12.5 mg PO DAILY 07/12/17 [History] Sertraline [Zoloft] 50 mg PO HS 07/12/17 [History] Simvastatin [Zocor] 40 mg PO HS 07/12/17 [History] Tamsulosin HCl [Flomax] 0.4 mg PO HS 07/12/17 [History] Vit C/E/Zn/Coppr/Lutein/Zeaxan [Preservision Areds 2 Softgel] 1 cap PO HS [History] Zolpidem [Ambien] 5 mg PO HS 07/12/17 [History] Albuterol Inhaler [Ventolin Hfa Inhaler] 1 - 2 puff INHALATION Q6HR PRN #1 inhaler 07/15/17 [Rx] Budesonide-Formot 160-4.5 Mcg [Symbicort 160-4.5 Mcg Inhaler] 2 puff INHALATION BID #1 inhaler 07/15/17 [Rx] Cefuroxime Axetil [Ceftin] 500 mg PO BID #20 tab 07/15/17 [Rx] Nystatin 100,000 Unit/gm Powd [Mycostatin Powder] 1 applic TOPICAL BID #1 can [Rx] Follow up Appointment(s)/Referral(s): [facility], [NON-STAFF] - As Needed None,Stated [REFERRING] - 1-2 days Vanessa Macias MD [Primary Care Provider] - 1 Week Activity/Diet/Wound Care/Special Instructions: Diet: cardiac Activity: as tolerated Discharge Disposition: HOME WITH HOME HEALTH SERVICES
== END 2017-07-15 17:15 | disposition home health service (06) | DRG 304 ==
LOC: EC 17:09 → 6SEL 20:46 → OBSVTOIN 07-14 09:36 → 5MS5E 07-14 13:33
PROVIDERS: ADMIT Internal Medicine; ATTEND Internal Medicine
DX: I16.1 Hypertensive emergency (principal); J18.9 Pneumonia, unspecified organism; I48.1 Persistent atrial fibrillation; E87.5 Hyperkalemia; J44.0 Chronic obstructive pulmonary disease with (acute) lower respiratory infection; I48.2 Chronic atrial fibrillation; E78.5 Hyperlipidemia, unspecified; G47.30 Sleep apnea, unspecified; I10 Essential (primary) hypertension; K58.9 Irritable bowel syndrome, unspecified; R29.6 Repeated falls; Z80.0 Family history of malignant neoplasm of digestive organs; Z85.46 Personal history of malignant neoplasm of prostate; Z87.891 Personal history of nicotine dependence; Z96.643 Presence of artificial hip joint, bilateral; Z79.899 Other long term (current) drug therapy; Z88.5 Allergy status to narcotic agent; R74.8 Abnormal levels of other serum enzymes
CPT/HCPCS: 36415; 71046; 80048; 80053; 81001; 82550; 82553; 83605; 83735; 84100; 84132; 84439; 84443; 84481; 84484; 85025; 85027; 85610; 85730; 87070; 87205; 93005; 93306; 94640; 96361; 96374; 96376; 99284

== ENCOUNTER → 2017-09-17 | Outpatient (CLI) | payer MEDICARE, BC ==
--- NOTE | 2017-09-17 10:25 | US ---
EXAMINATION TYPE: US kidneys/renal and bladder DATE OF EXAM: 09/17/2017 COMPARISON: NONE CLINICAL HISTORY: N18.3 Chronic kidney disease stage 3. EXAM MEASUREMENTS: Right Kidney: 11.9 x 5.9 x 6.1 cm Left Kidney: 13.2 x 6.0 x 5.2 cm Right Kidney: No hydronephrosis. Multiple cystic areas visualized, largest measuring 1.6 x 1.0 x 1.3 cm Left Kidney: No hydronephrosis. Multiple cystic areas visualized, largest measuring 1.3 x 1.2 x 1.5 c m Bladder: Probable diverticulum visualized Bilateral Jets seen: Yes IMPRESSION: 1. Multiple bilateral simple appearing renal cysts.
== END | disposition home or self-care (01) ==
LOC: RADUSWWP 09:32
PROVIDERS: ATTEND Internal Medicine Nephrology
DX: N28.1 Cyst of kidney, acquired (principal); N18.3 Chronic kidney disease, stage 3 (moderate)
CPT/HCPCS: 76770

== ENCOUNTER 2017-10-28 14:50 | Inpatient (IN) | payer MEDICARE, BC ==
[2017-10-28] MEDS ORDERED: SODIUM CHLORIDE 0.9% 1,000 ML IV STA (15:07)
[2017-10-28 15:35] LABS: Basophils # (A) 0.1 k/uL (0-0.2); Basophils % (A) 0 %; Eosinophils # (A) 0.5 k/uL (0-0.7); Eosinophils % (A) 3 %; HCT 54.3 % (39.0-53.0); HGB 17.4 gm/dL (13.0-17.5); Lymphocytes # (A) 1.2 k/uL (1.0-4.8); Lymphocytes % (A) 7 %; MCH 27.7 pg (25.0-35.0); MCHC 32.1 g/dL (31.0-37.0); MCV 86.1 fL (80.0-100.0); Mean Platelet Volume 7.7; Monocytes # (A) 1.6 k/uL (0-1.0); Monocytes % (A) 10 %; Neutrophils # (A) 12.1 k/uL (1.3-7.7); Neutrophils % (A) 77 %; Platelet Count 491 k/uL (150-450); RDW 14.2 % (11.5-15.5); WBC 15.8 k/uL (3.8-10.6)
--- NOTE | 2017-10-28 15:37 | ED ---
Arrhythmia/Palpitations HPI - General Chief Complaint: Arrhythmia/Palpitations Stated Complaint: abnormal EKG Time Seen by Provider: 10/28/17 15:03 Source: patient Mode of arrival: wheelchair Limitations: no limitations - History of Present Illness Initial Comments: 86 years old male with history of atrial fibrillation presents with the palpitation he said he felt like his heart rate was quite fast and now he is slightly short winded he denies any chest pain. There is no pleuritic chest pain no abdominal pain no frequency urgency dysuria. No fever no chills he is ex-smoker quit 30 years ago, he did smoke 30 years prior to that. No sinus symptoms of TIA or CVA - Related Data Home Medications Medication Instructions Recorded Confirmed CLIDINIUM-chlordiazePOXIDE [Librax] 1 - 2 tab PO DAILY 07/12/17 10/28/17 Ergocalciferol (Vitamin D2) 50,000 unit PO MO 07/12/17 10/28/17 [Vitamin D2] Finasteride [Proscar] 5 mg PO DAILY 07/12/17 10/28/17 Gabapentin [Neurontin] 200 mg PO BID 07/12/17 10/28/17 Hydrochlorothiazide [Hydrodiuril] 12.5 mg PO DAILY 07/12/17 10/28/17 Sertraline [Zoloft] 50 mg PO HS 07/12/17 10/28/17 Simvastatin [Zocor] 40 mg PO HS 07/12/17 10/28/17 Tamsulosin HCl [Flomax] 0.4 mg PO HS 07/12/17 10/28/17 Vit C/E/Zn/Coppr/Lutein/Zeaxan 1 cap PO BID 07/12/17 10/28/17 [Preservision Areds 2 Softgel] Zolpidem [Ambien] 5 mg PO HS 07/12/17 10/28/17 Aspirin [Adult Low Dose Aspirin EC] 81 mg PO DAILY 10/28/17 10/28/17 Budesonide-Formot 160-4.5 Mcg 2 puff INHALATION RT-BID 10/28/17 10/28/17 [Symbicort 160-4.5 Mcg Inhaler] Carvedilol [Coreg] 12.5 mg PO BID 10/28/17 10/28/17 Ipratropium-Albuterol Nebulize 3 ml INHALATION RT-BID PRN 10/28/17 10/28/17 [Duoneb 0.5 mg-3 mg/3 ml Soln] Previous Rx's Medication Instructions Recorded Albuterol Inhaler [Ventolin Hfa 1 - 2 puff INHALATION Q6HR PRN #1 07/15/17 Inhaler] inhaler Allergies Allergy/AdvReac Type Severity Reaction Status Date / Time codeine AdvReac Hallucinati Verified 10/28/17 15:46 ons Review of Systems ROS Statement: Those systems with pertinent positive or pertinent negative responses have been documented in the HPI. ROS Other: All systems not noted in ROS Statement are negative. Past Medical History Past Medical History: Atrial Fibrillation, Cancer, Hyperlipidemia, Hypertension , Sleep Apnea/CPAP/BIPAP Additional Past Medical History / Comment(s): prostate cancer, IBS History of Any Multi-Drug Resistant Organisms: None Reported Past Surgical History: Appendectomy, Orthopedic Surgery Additional Past Surgical History / Comment(s): back surgery, bilateral hip replacement Past Anesthesia/Blood Transfusion Reactions: No Reported Reaction Past Psychological History: No Psychological Hx Reported Smoking Status: Former smoker Past Alcohol Use History: None Reported Past Drug Use History: None Reported - Past Family History Mother Family Medical History: Cancer Additional Family Medical History / Comment(s): stomach cancer Father Family Medical History: CVA/TIA General Exam - General Exam Comments Initial Comments: General: The patient is awake and alert, in no distress, and does not appear acutely ill. GCS is 15 Skin: Skin is warm and dry and no rashes or lesions are noted. Eye: Pupils are equal, round and reactive to light, extra-ocular movements are intact; there is normal conjunctiva bilaterally. Ears, nose, mouth and throat: There are moist mucous membranes and no oral lesions. Neck: The neck is supple, there is no tenderness him a no signs of meningitis Cardiovascular: There is atrial fibrillation with RVR heart rate at during the exam was 110 Respiratory: To auscultation bilateral, noticed crackles at the bases bilateral , mild COPD noticed as well Gastrointestinal: Soft, non-distended, non-tender abdomen without masses or organomegaly noted. There is no rebound or guarding present. Bowel sounds are unremarkable. Back: There is no tenderness to palpation in the midline. There is no obvious deformity. Musculoskeletal: Normal ROM, no tenderness, There is no pedal edema. There is no calf tenderness or swelling. No cords were appreciated. Neurological: CN II-XII intact, Cranial nerves III through XII are intact. There are no obvious motor or sensory deficits. Coordination appears grossly intact. Speech is normal. Psychiatric: Cooperative, appropriate mood & affect, normal judgment. Limitations: no limitations Course Vital Signs 10/28/17 10/28/17 14:53 16:34 Temperature 98.0 F Pulse Rate 129 H 110 H Respiratory 20 22 Rate Blood Pressure 139/84 153/98 O2 Sat by Pulse 95 93 L Oximetry Patient has a leukocytosis with a left shift urinalysis is negative his CMP is negative considering atrial fibrillation with RVR we had started him on a Cardizem drip congestive heart failure (The Lasix and considering his elevated troponin and A. fib will start him on a Lovenox and now consult cardiology EKG Findings - EKG Comments: EKG Findings:: EKG is atrial fibrillation with RVR and noticed some left axis deviation heart rate 76 QRS duration is 94 QT/QTc is 340/451 review of this EKG does not reveal any ST elevation or ST depression Medical Decision Making - Lab Data Result diagrams: 10/28/17 15:13 10/28/17 15:13 Lab Results 10/28/17 10/28/17 10/28/17 Range/Units 15:13 15:13 15:13 WBC 15.8 H (3.8-10.6) k/uL RBC 6.30 H (4.30-5.90) m/uL Hgb 17.4 (13.0-17.5) gm/dL Hct 54.3 H (39.0-53.0) % MCV 86.1 (80.0-100.0) fL MCH 27.7 (25.0-35.0) pg MCHC 32.1 (31.0-37.0) g/dL RDW 14.2 (11.5-15.5) % Plt Count 491 H (150-450) k/uL Neutrophils % 77 % Lymphocytes % 7 % Monocytes % 10 % Eosinophils % 3 % Basophils % 0 % Neutrophils # 12.1 H (1.3-7.7) k/uL Lymphocytes # 1.2 (1.0-4.8) k/uL Monocytes # 1.6 H (0-1.0) k/uL Eosinophils # 0.5 (0-0.7) k/uL Basophils # 0.1 (0-0.2) k/uL PT (9.0-12.0) sec INR (<1.2) APTT (22.0-30.0) sec Sodium 135 L (137-145) mmol/L Potassium 5.0 (3.5-5.1) mmol/L Chloride 96 L (98-107) mmol/L Carbon Dioxide 26 (22-30) mmol/L Anion Gap 13 mmol/L BUN 25 H (9-20) mg/dL Creatinine 0.97 (0.66-1.25) mg/dL Est GFR (CKD-EPI)AfAm 82 (>60 ml/min/1.73 sqM) Est GFR (CKD-EPI)NonAf 71 (>60 ml/min/1.73 sqM) Glucose 122 H (74-99) mg/dL Calcium 9.1 (8.4-10.2) mg/dL Magnesium 2.0 (1.6-2.3) mg/dL Total Bilirubin 1.2 (0.2-1.3) mg/dL AST 29 (17-59) U/L ALT 37 (21-72) U/L Alkaline Phosphatase 51 (38-126) U/L Total Creatine Kinase 46 L (55-170) U/L CK-MB (CK-2) 1.7 (0.0-2.4) ng/mL CK-MB (CK-2) Rel Index 3.7 Troponin I 0.043 H* (0.000-0.034) ng/mL Total Protein 6.8 (6.3-8.2) g/dL Albumin 3.6 (3.5-5.0) g/dL TSH 2.220 (0.465-4.680) mIU/L Urine Color Urine Appearance (Clear) Urine pH (5.0-8.0) Ur Specific [place] (1.001-1.035) Urine Protein (Negative) Urine Glucose (UA) (Negative) Urine Ketones (Negative) Urine Blood (Negative) Urine Nitrite (Negative) Urine Bilirubin (Negative) Urine Urobilinogen (<2.0) mg/dL Ur Leukocyte Esterase (Negative) Urine RBC (0-5) /hpf Urine WBC (0-5) /hpf Ur Squamous Epith Cells (0-4) /hpf Urine Bacteria (None) /hpf Urine Mucus (None) /hpf 10/28/17 10/28/17 Range/Units 15:13 16:25 WBC (3.8-10.6) k/uL RBC (4.30-5.90) m/uL Hgb (13.0-17.5) gm/dL Hct (39.0-53.0) % MCV (80.0-100.0) fL MCH (25.0-35.0) pg MCHC (31.0-37.0) g/dL RDW (11.5-15.5) % Plt Count (150-450) k/uL Neutrophils % % Lymphocytes % % Monocytes % % Eosinophils % % Basophils % % Neutrophils # (1.3-7.7) k/uL Lymphocytes # (1.0-4.8) k/uL Monocytes # (0-1.0) k/uL Eosinophils # (0-0.7) k/uL Basophils # (0-0.2) k/uL PT 11.8 (9.0-12.0) sec INR 1.2 H (<1.2) APTT 28.5 (22.0-30.0) sec Sodium (137-145) mmol/L Potassium (3.5-5.1) mmol/L Chloride (98-107) mmol/L Carbon Dioxide (22-30) mmol/L Anion Gap mmol/L BUN (9-20) mg/dL Creatinine (0.66-1.25) mg/dL Est GFR (CKD-EPI)AfAm (>60 ml/min/1.73 sqM) Est GFR (CKD-EPI)NonAf (>60 ml/min/1.73 sqM) Glucose (74-99) mg/dL Calcium (8.4-10.2) mg/dL Magnesium (1.6-2.3) mg/dL Total Bilirubin (0.2-1.3) mg/dL AST (17-59) U/L ALT (21-72) U/L Alkaline Phosphatase (38-126) U/L Total Creatine Kinase (55-170) U/L CK-MB (CK-2) (0.0-2.4) ng/mL CK-MB (CK-2) Rel Index Troponin I (0.000-0.034) ng/mL Total Protein (6.3-8.2) g/dL Albumin (3.5-5.0) g/dL TSH (0.465-4.680) mIU/L Urine Color Yellow Urine Appearance Clear (Clear) Urine pH 6.5 (5.0-8.0) Ur Specific [place] 1.011 (1.001-1.035) Urine Protein 2+ H (Negative) Urine Glucose (UA) Negative (Negative) Urine Ketones Negative (Negative) Urine Blood Negative (Negative) Urine Nitrite Negative (Negative) Urine Bilirubin Negative (Negative) Urine Urobilinogen 2.0 (<2.0) mg/dL Ur Leukocyte Esterase Negative (Negative) Urine RBC 1 (0-5) /hpf Urine WBC 1 (0-5) /hpf Ur Squamous Epith Cells <1 (0-4) /hpf Urine Bacteria Rare H (None) /hpf Urine Mucus Rare H (None) /hpf Critical Care Time Total Critical Care Time: 30 Critical Care Time: He comes in with atrial fibrillation with RVR heart rate is quite fluctuating though he is on carvedilol at this time initially his heart rate was 129 and we did the EKG was 106 and will start him on a Cardizem 5 mg bolus and now 5 mg per hour infusion he will definitely Need admission considering is 86 and he has a history of heart disease him in the meanwhile workup for the myocardial infarction as well as congestive heart failure he is on the way. We discussed the Dr. Macias cardiology be consult. Chest x-ray reviewed revealed congestive heart failure (given Lasix 40 mg IV now Disposition Clinical Impression: Atrial fibrillation with RVR, Congestive heart failure, Leukocytosis Disposition: ADMITTED IP TO THIS HOSP Condition: Good Referrals: Vanessa Macias MD [Primary Care Provider] - 1-2 days
[2017-10-28] MEDS ORDERED: DILTIAZEM DRIP BOLUS FROM BAG 1 MG SOLN IV ONE ×2 (15:38→22:28)
--- NOTE | 2017-10-28 15:40 | XR ---
EXAMINATION TYPE: XR chest 2V DATE OF EXAM: 10/28/2017 COMPARISON: Chest x-ray July 13, 2017 HISTORY: Dysrhythmia. TECHNIQUE: Frontal and lateral views of the chest are obtained. FINDINGS: The cardiac silhouette size remains enlarged with atherosclerotic change in the aortic kno b. The osseous structures redemonstrate marked arthropathy right glenohumeral joint. Demineralizati on is present. There is chronic parenchymal change with suspected small bilateral pleural effusions a nd new central vascular congestion and mild interstitial edema. There is persistent bibasilar atelect asis and/or scarring. IMPRESSION: Correlate for CHF exacerbation as there is cardiomegaly with suspected new central vascu lar congestion and persistent small bilateral pleural effusions on background of chronic emphysematou s change.
[2017-10-28 15:44] LABS: INR 1.2 (<1.2); Partial Thromboplastin Time 28.5 sec (22.0-30.0); Prothrombin Time 11.8 sec (9.0-12.0)
[2017-10-28] MEDS ORDERED: DILTIAZEM 50 MG in SODIUM CHLORIDE 0.9% 40 ML IV SCH (15:45)
[2017-10-28 15:48] LABS: Albumin 3.6 g/dL (3.5-5.0); Calcium 9.1 mg/dL (8.4-10.2); Total Bilirubin 1.2 mg/dL (0.2-1.3); Total Protein 6.8 g/dL (6.3-8.2)
[2017-10-28] MEDS ORDERED: FUROSEMIDE 10 MG/ML 4 ML VIAL IV STA (15:48)
[2017-10-28 16:10] LABS: Creatine Kinase MB 1.7 ng/mL (0.0-2.4)
[2017-10-28 16:14] LABS: Troponin I 0.043 ng/mL (0.000-0.034)
[2017-10-28 16:50] LABS: Appearance,Urine Clear (Clear); Bacteria,Urine Rare /hpf; Bilirubin,Urine Negative (Negative); Blood,Urine Negative (Negative); Color,Urine Yellow; Glucose,Urine (UA) Negative (Negative); Ketones,Urine Negative (Negative); Leukocyte Esterase,Urine Negative (Negative); Mucus,Urine Rare /hpf; Nitrite,Urine Negative (Negative); PH, Urine 6.5 (5.0-8.0); Protein,Urine 2+ (Negative); RBC,Urine 1 /hpf (0-5); Specific Gravity,Urine 1.011 (1.001-1.035); Squamous Epithelial Cell,Urine <1 /hpf (0-4); WBC,Urine 1 /hpf (0-5)
[2017-10-28] MEDS ORDERED: NITROGLYCERIN SL TABS 0.4 MG TAB SUBLINGUAL PRN (18:25)
[2017-10-28] MEDS ORDERED: ACETAMINOPHEN TAB 325 MG TAB PO PRN (18:25)
[2017-10-28] MEDS ORDERED: ALBUTEROL NEBULIZED 2.5 MG/3 ML INHALATION PRN (18:28)
[2017-10-28] MEDS ORDERED: IPRATROPIUM-ALBUTEROL 3 ML NEB INHALATION PRN (18:28)
[2017-10-28] MEDS ORDERED: cefTRIAXone IN SWFI 1,000 MG/10 ML SYRINGE IVP STA (18:32)
[2017-10-28] MEDS: SYMBICORT 160-4.5 MCG INHALER INHALATION SCH (20:34)
[2017-10-28] MEDS ORDERED: NON-FORMULARY DRUG (Simvastatin 40 MG) PO SCH (21:00)
[2017-10-28] MEDS: TAMSULOSIN 0.4 MG CAP.ER.24H PO SCH (21:27)
[2017-10-28] MEDS: ZOLPIDEM 5 MG TAB PO SCH (21:27)
[2017-10-28] MEDS: GABAPENTIN 100 MG CAP PO SCH (21:27)
[2017-10-28] MEDS: SERTRALINE 50 MG TAB PO SCH (21:27)
[2017-10-28] MEDS: VIT A,C & E-LUTEIN-MINERALS 1 EACH TAB PO SCH (21:28)
[2017-10-28] MEDS: ATORVASTATIN 40 MG TAB PO SCH (21:28)
[2017-10-28] MEDS: CARVEDILOL 12.5 MG TAB PO SCH (21:28)
[2017-10-28 22:09] LABS: Creatine Kinase MB 1.9 ng/mL (0.0-2.4)
[2017-10-28 22:11] LABS: Troponin I 0.055 ng/mL (0.000-0.034)
[2017-10-28] MEDS: DILTIAZEM 50 MG in SODIUM CHLORIDE 0.9% 40 ML IV SCH (22:51)
[2017-10-29 04:39] LABS: Cholesterol 122 mg/dL (<200); Creatine Kinase MB 2.1 ng/mL (0.0-2.4); HDL Cholesterol 37 mg/dL (40-60); LDL Cholesterol,Calculated 70 mg/dL (0-99); Triglycerides 77 mg/dL (<150)
[2017-10-29 04:46] LABS: Troponin I 0.067 ng/mL (0.000-0.034)
[2017-10-29] MEDS: DILTIAZEM 50 MG in SODIUM CHLORIDE 0.9% 40 ML IV SCH ×2 (05:41→08:48)
[2017-10-29] MEDS: CARVEDILOL 12.5 MG TAB PO SCH ×2 (06:39→17:13)
[2017-10-29] MEDS: VIT A,C & E-LUTEIN-MINERALS 1 EACH TAB PO SCH ×2 (08:50→20:53)
[2017-10-29] MEDS: GABAPENTIN 100 MG CAP PO SCH ×2 (08:50→20:53)
[2017-10-29] MEDS: FINASTERIDE 5 MG TAB PO SCH (08:50)
[2017-10-29] MEDS: HYDROCHLOROTHIAZIDE 12.5 MG CAP PO SCH (08:50)
[2017-10-29] MEDS: ASPIRIN 325 MG TAB PO SCH (08:50)
[2017-10-29] MEDS: SYMBICORT 160-4.5 MCG INHALER INHALATION SCH ×2 (08:53→19:47)
[2017-10-29] MEDS: CLIDINIUM-chlordiazePOXIDE (2.5-5 MG) CAP PO SCH (09:20)
[2017-10-29 10:01] LABS: Albumin 3.4 g/dL (3.5-5.0); Calcium 9.2 mg/dL (8.4-10.2); Potassium 4.6 mmol/L (3.5-5.1); Total Bilirubin 1.3 mg/dL (0.2-1.3); Total Protein 6.7 g/dL (6.3-8.2)
[2017-10-29] MEDS ORDERED: DEXTROSE 5% IN WATER 100 ML with AMIODARONE 150 MG IV ONE (10:29)
--- NOTE | 2017-10-29 10:35 | P.CRDCN ---
History of Present Illness Consult date: 10/29/17 Chief complaint: Heart racing History of present illness: This is a pleasant 86-year-old gentleman with a past medical history significant for paroxysmal atrial fibrillation, hypertension, dyslipidemia, and mild aortic stenosis as well as mild cardiomyopathy with an ejection fraction between 40-45% based on echocardiogram was performed in July 2017 presented to the hospital complaining of heart racing and fluttering. The patient did not have any symptoms of chest pain or chest discomfort, no shortness of breath, no dizziness or lightheadedness and no syncope. When he presented to the hospital he was found to be in atrial fibrillation with RVR with a heart rate around 120 bpm. Because of that the patient was placed in the hospital and he was started on Cardizem and drip. Beside that the patient was receiving Coreg 12.5 mg by mouth twice a day as an outpatient and that was continued. The patient is not on any oral anticoagulation for unknown reason probably because of his age as well as high risk of falling and bleeding. The cardiac enzymes were checked and came in to be slightly abnormal. The EKG showed atrial fibrillation with RVR and nonspecific changes without any ischemic changes. On follow-up with the patient today, he is feeling slightly better. He denies having any chest pain or chest discomfort or shortness of breath but he continues to have the heart racing feeling. The blood pressure has been marginally low. He is on Cardizem and drip at 7.5 mg per hour along with Coreg at 12.5 mg by mouth twice a day. I did recommend DC the Cardizem drip in view of the cardiomyopathy and low blood pressure and start the patient on amiodarone was bolus and drip. I am going to keep him on the current dose of Coreg and I would not increase the dose of Coreg in view of the marginally low blood pressure. Past Medical History Past Medical History: Atrial Fibrillation, Cancer, Hyperlipidemia, Hypertension , Pneumonia, Sleep Apnea/CPAP/BIPAP Additional Past Medical History / Comment(s): prostate cancer, IBS History of Any Multi-Drug Resistant Organisms: None Reported Past Surgical History: Appendectomy, Orthopedic Surgery Additional Past Surgical History / Comment(s): back surgery, bilateral hip replacement Past Anesthesia/Blood Transfusion Reactions: No Reported Reaction Smoking Status: Former smoker - Past Family History Mother Family Medical History: Cancer Additional Family Medical History / Comment(s): stomach cancer Father Family Medical History: CVA/TIA Medications and Allergies Home Medications Medication Instructions Recorded Confirmed Type CLIDINIUM-chlordiazePOXIDE [Librax] 1 - 2 tab PO DAILY 07/12/17 10/28/17 History Ergocalciferol (Vitamin D2) 50,000 unit PO MO 07/12/17 10/28/17 History [Vitamin D2] Finasteride [Proscar] 5 mg PO DAILY 07/12/17 10/28/17 History Gabapentin [Neurontin] 200 mg PO BID 07/12/17 10/28/17 History Hydrochlorothiazide [Hydrodiuril] 12.5 mg PO DAILY 07/12/17 10/28/17 History Sertraline [Zoloft] 50 mg PO HS 07/12/17 10/28/17 History Simvastatin [Zocor] 40 mg PO HS 07/12/17 10/28/17 History Tamsulosin HCl [Flomax] 0.4 mg PO HS 07/12/17 10/28/17 History Vit C/E/Zn/Coppr/Lutein/Zeaxan 1 cap PO BID 07/12/17 10/28/17 History [Preservision Areds 2 Softgel] Zolpidem [Ambien] 5 mg PO HS 07/12/17 10/28/17 History Albuterol Inhaler [Ventolin Hfa 1 - 2 puff INHALATION Q6HR PRN #1 07/15/1710/28 Rx Inhaler] inhaler Aspirin [Adult Low Dose Aspirin EC] 81 mg PO DAILY 10/28/17 10/28/17 History Budesonide-Formot 160-4.5 Mcg 2 puff INHALATION RT-BID 10/28/17 10/28/17 History [Symbicort 160-4.5 Mcg Inhaler] Carvedilol [Coreg] 12.5 mg PO BID 10/28/17 10/28/17 History Ipratropium-Albuterol Nebulize 3 ml INHALATION RT-BID PRN 10/28/17 10/28/17 History [Duoneb 0.5 mg-3 mg/3 ml Soln] Allergies Allergy/AdvReac Type Severity Reaction Status Date / Time codeine AdvReac Hallucinati Verified 10/28/17 15:46 ons Physical Exam Vitals: Vital Signs Temp Pulse Pulse Resp BP BP Pulse Ox 10/29/17 08:39 98.0 F 117 H 18 136/87 96 10/28/17 19:17 97.6 F 10/28/17 19:11 98.5 F 10/28/17 18:51 97 18 138/87 93 L 10/28/17 16:34 110 H 22 153/98 93 L 10/28/17 14:53 98.0 F 129 H 20 139/84 95 Intake and Output 10/28/17 10/29/17 10/29/17 22:59 06:59 14:59 Other: Voiding Method Urinal Weight 102.058 kg - Constitutional General appearance: no acute distress - Respiratory Respiratory: bilateral: CTA - Cardiovascular Rhythm: irregularly irregular Heart sounds: normal: S1, S2 Abnormal Heart Sounds: systolic murmur Results 10/28/17 15:13 10/29/17 02:57 Cardiac Enzymes 10/28/17 10/28/17 10/28/17 Range/Units 15:13 15:13 21:05 AST 29 (17-59) U/L CK-MB (CK-2) 1.7 1.9 (0.0-2.4) ng/mL Troponin I 0.043 H* 0.055 H* (0.000-0.034) ng/mL 10/29/17 10/29/17 Range/Units 02:57 02:57 AST 30 (17-59) U/L CK-MB (CK-2) 2.1 (0.0-2.4) ng/mL Troponin I 0.067 H* (0.000-0.034) ng/mL Coagulation 10/28/17 Range/Units 15:13 PT 11.8 (9.0-12.0) sec APTT 28.5 (22.0-30.0) sec Lipids 10/29/17 Range/Units 02:57 Triglycerides 77 (<150) mg/dL Cholesterol 122 (<200) mg/dL HDL Cholesterol 37 L (40-60) mg/dL CBC 10/28/17 Range/Units 15:13 WBC 15.8 H (3.8-10.6) k/uL RBC 6.30 H (4.30-5.90) m/uL Hgb 17.4 (13.0-17.5) gm/dL Hct 54.3 H (39.0-53.0) % Plt Count 491 H (150-450) k/uL Comprehensive Metabolic Panel 10/28/17 10/29/17 Range/Units 15:13 02:57 Sodium 135 L 135 L (137-145) mmol/L Potassium 5.0 4.6 (3.5-5.1) mmol/L Chloride 96 L 96 L (98-107) mmol/L Carbon Dioxide 26 26 (22-30) mmol/L BUN 25 H 24 H (9-20) mg/dL Creatinine 0.97 0.98 (0.66-1.25) mg/dL Glucose 122 H 121 H (74-99) mg/dL Calcium 9.1 9.2 (8.4-10.2) mg/dL AST 29 30 (17-59) U/L ALT 37 37 (21-72) U/L Alkaline Phosphatase 51 51 (38-126) U/L Total Protein 6.8 6.7 (6.3-8.2) g/dL Albumin 3.6 3.4 L (3.5-5.0) g/dL Current Medications Generic Name Dose Route Start Last Admin Trade Name Freq PRN Reason Stop Dose Admin Acetaminophen 650 mg 10/28/17 18:25 Tylenol Tab PO Q4HR PRN Mild Pain Albuterol/Ipratropium 3 ml 10/28/17 18:28 Duoneb 0.5 Mg-3 Mg/3 Ml Soln INHALATION RT-BID PRN Shortness Of Breath Aspirin 325 mg 10/29/17 09:00 10/29/17 08:50 Aspirin PO 325 mg DAILY CELINE Administration Atorvastatin Calcium 40 mg 10/28/17 21:00 10/28/17 21:28 Lipitor PO 40 mg HS CELINE Administration Budesonide/Formoterol Fumarate 2 puff 10/28/17 20:00 10/29/17 08:53 Symbicort 160-4.5 Mcg Inhaler INHALATION 2 puff RT-BID CELINE Administration Carvedilol 12.5 mg 10/28/17 19:00 10/29/17 06:39 Coreg PO 12.5 mg AC-BID CELINE Administration Ceftriaxone Sodium 1,000 mg 10/30/17 09:00 Rocephin IVP Q24HR [facility] Chlordiazepoxide/Clidinium 2 each 10/29/17 09:00 10/29/17 09:20 Librax PO 2 each DAILY CELINE Administration Enoxaparin Sodium 40 mg 10/30/17 09:00 Lovenox SQ DAILY CELINE Ergocalciferol 50,000 unit 11/03/17 09:00 Vitamin D2 PO MO CELINE Finasteride 5 mg 10/29/17 09:00 10/29/17 08:50 Proscar PO 5 mg DAILY CELINE Administration Gabapentin 200 mg 10/28/17 21:00 10/29/17 08:50 Neurontin PO 200 mg BID CELINE Administration Hydrochlorothiazide 12.5 mg 10/29/17 09:00 10/29/17 08:50 Hydrodiuril PO 12.5 mg DAILY CELINE Administration Diltiazem HCl 50 mg/ Sodium 50 mls @ 7.5 mls/hr 10/28/17 22:30 10/29/17 08:48 Chloride IV 7.5 mg/hr .Q6H40M CELINE 7.5 mls/hr Administration 7.5 MG/HR Amiodarone HCl 150 mg/ 103 mls @ 618 mls/hr 10/29/17 10:29 Dextrose/Water IV 10/29/17 10:38 .Q10M ONE Amiodarone HCl 450 mg/ 250 mls @ 33.33 mls/hr 10/29/17 10:30 Dextrose/Water IV 10/30/17 10:29 .Q7H31M CELINE Protocol 1 MG/MIN Azithromycin 500 mg/ Sodium 250 mls @ 125 mls/hr 10/30/17 09:00 Chloride IVPB DAILY [facility] Multivitamins/Minerals 1 each 10/28/17 21:00 10/29/17 08:50 Ivite PO 1 each BID CELINE Administration Nitroglycerin 0.4 mg 10/28/17 18:25 Nitrostat SUBLINGUAL Q5M PRN Chest Pain Sertraline HCl 50 mg 10/28/17 21:00 10/28/17 21:27 Zoloft PO 50 mg HS CELINE Administration Tamsulosin HCl 0.4 mg 10/28/17 21:00 10/28/17 21:27 Flomax PO 0.4 mg HS CELINE Administration Zolpidem Tartrate 5 mg 10/28/17 21:00 10/28/17 21:27 Ambien PO 5 mg HS CELINE Administration Intake and Output 10/28/17 10/29/17 10/29/17 22:59 06:59 14:59 Other: Voiding Method Urinal Weight 102.058 kg 10/28/17 15:13 10/29/17 02:57 Assessment and Plan Assessment: Assessment #1 A. fib with RVR. The patient does have history of paroxysmal atrial fibrillation #2 marginly a low blood pressure with a systolic pressure of 100 mmHg #3 cardiomyopathy and known if is ischemic or nonischemic with an EF of 40-45% #4 mild aortic stenosis #5 mildly abnormal cardiac enzymes Plan #1 DC the Cardizem drip in view of the cardiomyopathy. #2 start the patient on amiodarone with bolus and drip #3 continue the current dose of Coreg #4 continue aspirin and statin. #5 follow-up with the patient. Thank you for allowing us participate in his care and we will continue following up with the patient
[2017-10-29] MEDS: AMIODARONE 450 MG in DEXTROSE 5% IN WATER 250 ML IV SCH ×4 (10:47→17:13)
--- NOTE | 2017-10-29 12:21 | P.HPIM ---
History of Present Illness H&P Date: 10/29/17 Chief Complaint: Palpitations This is an 86-year-old male who presented to the emergency room with palpitations and feeling short of breath. Patient has a known history of atrial fibrillation but not on any anticoagulation due to high risk of falls. Other medical history includes prostate cancer, hyperlipidemia, hypertension, sleep apnea and IBS. EKG on admission showed A. fib with RVR. Cardiology was consulted and patient was placed on Cardizem drip. Chest x-ray completed in ER showing correlation for CHF exacerbation as there is cardiomegaly with suspected new central vascular congestion and persistent small bilateral pleural effusions on back on a chronic emphysematous changes. Patient was given 40 mg IV Lasix in the emergency room. Troponin levels drawn 0.043, 0.055 and 0.067, cardiology following. Per cardiology Cardizem drip has been DC'd and patient started on amiodarone bolus and drip. White blood cell on admission 15.8. Rocephin has been ordered for antibiotic. Urine and blood cultures have been ordered along with two-view chest x-ray. Patient denies chest pain at this time and states shortness of breath has improved. Patient denies any urinary symptoms. Patient denies nausea vomiting or diarrhea. Review of Systems Please Refer to HPI otherwise unremarkable Past Medical History Past Medical History: Atrial Fibrillation, Cancer, Hyperlipidemia, Hypertension , Pneumonia, Sleep Apnea/CPAP/BIPAP Additional Past Medical History / Comment(s): prostate cancer, IBS History of Any Multi-Drug Resistant Organisms: None Reported Past Surgical History: Appendectomy, Orthopedic Surgery Additional Past Surgical History / Comment(s): back surgery, bilateral hip replacement Past Anesthesia/Blood Transfusion Reactions: No Reported Reaction Smoking Status: Former smoker - Past Family History Mother Family Medical History: Cancer Additional Family Medical History / Comment(s): stomach cancer Father Family Medical History: CVA/TIA Medications and Allergies Home Medications Medication Instructions Recorded Confirmed Type CLIDINIUM-chlordiazePOXIDE [Librax] 1 - 2 tab PO DAILY 07/12/17 10/28/17 History Ergocalciferol (Vitamin D2) 50,000 unit PO MO 07/12/17 10/28/17 History [Vitamin D2] Finasteride [Proscar] 5 mg PO DAILY 07/12/17 10/28/17 History Gabapentin [Neurontin] 200 mg PO BID 07/12/17 10/28/17 History Hydrochlorothiazide [Hydrodiuril] 12.5 mg PO DAILY 07/12/17 10/28/17 History Sertraline [Zoloft] 50 mg PO HS 07/12/17 10/28/17 History Simvastatin [Zocor] 40 mg PO HS 07/12/17 10/28/17 History Tamsulosin HCl [Flomax] 0.4 mg PO HS 07/12/17 10/28/17 History Vit C/E/Zn/Coppr/Lutein/Zeaxan 1 cap PO BID 07/12/17 10/28/17 History [Preservision Areds 2 Softgel] Zolpidem [Ambien] 5 mg PO HS 07/12/17 10/28/17 History Albuterol Inhaler [Ventolin Hfa 1 - 2 puff INHALATION Q6HR PRN #1 07/15/1710/28 Rx Inhaler] inhaler Aspirin [Adult Low Dose Aspirin EC] 81 mg PO DAILY 10/28/17 10/28/17 History Budesonide-Formot 160-4.5 Mcg 2 puff INHALATION RT-BID 10/28/17 10/28/17 History [Symbicort 160-4.5 Mcg Inhaler] Carvedilol [Coreg] 12.5 mg PO BID 10/28/17 10/28/17 History Ipratropium-Albuterol Nebulize 3 ml INHALATION RT-BID PRN 10/28/17 10/28/17 History [Duoneb 0.5 mg-3 mg/3 ml Soln] Allergies Allergy/AdvReac Type Severity Reaction Status Date / Time codeine AdvReac Hallucinati Verified 10/28/17 15:46 ons Physical Exam Vitals: Vital Signs Temp Pulse Pulse Resp BP BP Pulse Ox 10/29/17 11:10 115 H 16 10/29/17 11:06 97.4 F L 115 H 16 105/64 96 10/29/17 08:39 98.0 F 117 H 18 136/87 96 10/28/17 19:17 97.6 F 10/28/17 19:11 98.5 F 10/28/17 18:51 97 18 138/87 93 L 10/28/17 16:34 110 H 22 153/98 93 L 10/28/17 14:53 98.0 F 129 H 20 139/84 95 Intake and Output 10/28/17 10/29/17 10/29/17 22:59 06:59 14:59 Intake Total 10 Balance 10 Intake: IV 10 Invasive Line 2 10 Other: Voiding Method Urinal Weight 102.058 kg Head normocephalic Neck supple Lungs clear to auscultation bilaterally no wheezing or crackles Heart irregular rate and rhythm with no rub or gallop Abdomen is soft nontender nondistended positive bowel sounds no hepatosplenomegaly Extremities no edema Neuro alert and orientated to 3. Mild remote confusion at times Results CBC & Chem 7: 10/28/17 15:13 10/29/17 02:57 Labs: Abnormal Lab Results - Last 24 Hours (Table) 10/28/17 10/28/17 10/28/17 Range/Units 15:13 15:13 15:13 WBC 15.8 H (3.8-10.6) k/uL RBC 6.30 H (4.30-5.90) m/uL Hct 54.3 H (39.0-53.0) % Plt Count 491 H (150-450) k/uL Neutrophils # 12.1 H (1.3-7.7) k/uL Monocytes # 1.6 H (0-1.0) k/uL INR (<1.2) Sodium 135 L (137-145) mmol/L Chloride 96 L (98-107) mmol/L BUN 25 H (9-20) mg/dL Glucose 122 H (74-99) mg/dL Total Creatine Kinase 46 L (55-170) U/L Troponin I 0.043 H* (0.000-0.034) ng/mL Albumin (3.5-5.0) g/dL HDL Cholesterol (40-60) mg/dL Urine Protein (Negative) Urine Bacteria (None) /hpf Urine Mucus (None) /hpf 10/28/17 10/28/17 10/28/17 Range/Units 15:13 16:25 21:05 WBC (3.8-10.6) k/uL RBC (4.30-5.90) m/uL Hct (39.0-53.0) % Plt Count (150-450) k/uL Neutrophils # (1.3-7.7) k/uL Monocytes # (0-1.0) k/uL INR 1.2 H (<1.2) Sodium (137-145) mmol/L Chloride (98-107) mmol/L BUN (9-20) mg/dL Glucose (74-99) mg/dL Total Creatine Kinase (55-170) U/L Troponin I 0.055 H* (0.000-0.034) ng/mL Albumin (3.5-5.0) g/dL HDL Cholesterol (40-60) mg/dL Urine Protein 2+ H (Negative) Urine Bacteria Rare H (None) /hpf Urine Mucus Rare H (None) /hpf 10/29/17 10/29/17 10/29/17 Range/Units 02:57 02:57 02:57 WBC (3.8-10.6) k/uL RBC (4.30-5.90) m/uL Hct (39.0-53.0) % Plt Count (150-450) k/uL Neutrophils # (1.3-7.7) k/uL Monocytes # (0-1.0) k/uL INR (<1.2) Sodium 135 L (137-145) mmol/L Chloride 96 L (98-107) mmol/L BUN 24 H (9-20) mg/dL Glucose 121 H (74-99) mg/dL Total Creatine Kinase (55-170) U/L Troponin I 0.067 H* (0.000-0.034) ng/mL Albumin 3.4 L (3.5-5.0) g/dL HDL Cholesterol 37 L (40-60) mg/dL Urine Protein (Negative) Urine Bacteria (None) /hpf Urine Mucus (None) /hpf Microbiology - Last 24 Hours (Table) 10/28/17 16:25 Urine Culture - Preliminary Urine,Voided Thrombosis Risk Factor Assmnt - Choose All That Apply Each Risk Factor Represents 3 Points: Age 75 years or older Thrombosis Risk Factor Assessment Total Risk Factor Score: 3 Thrombosis Risk Factor Assessment Level: Moderate Risk Assessment and Plan Assessment: 1. Atrial fibrillation with rapid ventricular response and possible CHF exacerbation. Patient does have history of paroxysmal atrial fibrillation. Was not on coagulation due to high risk of fall. EKG completed emergency room showing A. fib with RVR. X-ray completed ER correlating for CHF exacerbation as there is cardiomegaly with suspected new central vascular congestion and persistent small bilateral pleural effusions on background of chronic emphysematous changes. Patient did receive one-time dose of Lasix in emergency room. Cardiology is following. Cardizem drip has been D/C. Amiodarone bolus and drip have been ordered per cardiology. Continue current dose of Coreg, statin and aspirin per cardiology. Per Cardiology recent EF 40-45%. 2. Elevated troponin. Troponin level 0.043, 0.055 and 0.067. Cardiology service is following 3. Leukocytosis. White blood cell 15.8. Urine and blood cultures have been ordered. The chest x-ray also ordered. Patient started on Rocephin. 4. History of prostate cancer 5. History of hyperlipidemia. Continue statin 6. History of essential hypertension. Patient currently on Coreg and hydrochlorothiazide DVT prophylaxis Lovenox, GI prophylaxis Protonix Time with Patient: Greater than 30 (Greater than 60% of the total time spent in counseling and coordination of care. I performed an examination of the patient and discussed their management with the Nurse Practitioner. I have reviewed the Nurse Practitioner's notes and agree with the documented findings and plan of care)
--- NOTE | 2017-10-29 15:13 | XR ---
EXAMINATION TYPE: XR chest 2V DATE OF EXAM: 10/29/2017 COMPARISON: 10/28/2017 HISTORY: 86-year-old male follow-up exam TECHNIQUE: AP and lateral views FINDINGS: Heart borderline enlarged. Diffuse interstitial densities are present with some patchy posterior basi lar opacity on the lateral view. No significant pleural effusion. Mild hyperinflation. IMPRESSION: 1. Borderline cardiomegaly with continued interstitial changes. Differential considerations include m ild CHF with pulmonary vascular congestion, atypical pneumonias, and interstitial pneumonitis. 2. Some new patchy posterior basilar opacity on the lateral view could represent atelectasis or infil trate.
[2017-10-29] MEDS: TAMSULOSIN 0.4 MG CAP.ER.24H PO SCH (20:53)
[2017-10-29] MEDS: ATORVASTATIN 40 MG TAB PO SCH (20:53)
[2017-10-29] MEDS: SERTRALINE 50 MG TAB PO SCH (20:53)
[2017-10-29] MEDS: ZOLPIDEM 5 MG TAB PO SCH (20:54)
[2017-10-29] MEDS: LORazepam 2 MG/ML INJ IV PRN (21:35)
[2017-10-30] MEDS: LORazepam 2 MG/ML INJ IV PRN ×2 (00:45→22:18)
[2017-10-30] MEDS: AMIODARONE 450 MG in DEXTROSE 5% IN WATER 250 ML IV SCH ×4 (00:45→11:01)
[2017-10-30 06:30] LABS: Albumin 3.3 g/dL (3.5-5.0); Calcium 8.9 mg/dL (8.4-10.2); Potassium 4.8 mmol/L (3.5-5.1); Total Protein 6.5 g/dL (6.3-8.2)
[2017-10-30] MEDS: PANTOPRAZOLE 40 MG TABLET PO SCH (06:35)
[2017-10-30] MEDS: CARVEDILOL 12.5 MG TAB PO SCH ×2 (06:36→17:14)
[2017-10-30] MEDS: SYMBICORT 160-4.5 MCG INHALER INHALATION SCH ×2 (08:20→19:04)
[2017-10-30] MEDS ORDERED: AZITHROMYCIN 500 MG in SODIUM CHLORIDE 0.9% 250 ML IVPB SCH (09:00)
[2017-10-30] MEDS: ASPIRIN 325 MG TAB PO SCH (09:07)
[2017-10-30] MEDS: VIT A,C & E-LUTEIN-MINERALS 1 EACH TAB PO SCH ×2 (09:07→20:20)
[2017-10-30] MEDS: ENOXAPARIN 40 MG/0.4 ML SYRINGE SQ SCH (09:07)
[2017-10-30] MEDS: GABAPENTIN 100 MG CAP PO SCH ×2 (09:07→20:20)
[2017-10-30] MEDS: FINASTERIDE 5 MG TAB PO SCH (09:07)
[2017-10-30] MEDS: HYDROCHLOROTHIAZIDE 12.5 MG CAP PO SCH (09:07)
[2017-10-30] MEDS: cefTRIAXone IN SWFI 1,000 MG/10 ML SYRINGE IVP SCH (09:08)
[2017-10-30] MEDS: CLIDINIUM-chlordiazePOXIDE (2.5-5 MG) CAP PO SCH (09:13)
[2017-10-30 09:41] LABS: Basophils # (A) 0.1 k/uL (0-0.2); Basophils % (A) 1 %; Eosinophils # (A) 0.7 k/uL (0-0.7); Eosinophils % (A) 4 %; HGB 17.5 gm/dL (13.0-17.5); Lymphocytes # (A) 1.5 k/uL (1.0-4.8); Lymphocytes % (A) 10 %; MCH 28.6 pg (25.0-35.0); MCHC 31.6 g/dL (31.0-37.0); MCV 90.5 fL (80.0-100.0); Mean Platelet Volume 8.7; Monocytes # (A) 1.8 k/uL (0-1.0); Monocytes % (A) 11 %; Neutrophils # (A) 11.3 k/uL (1.3-7.7); Neutrophils % (A) 71 %; Platelet Count 478 k/uL (150-450); RBC 6.12 m/uL (4.30-5.90); RDW 14.5 % (11.5-15.5); WBC 15.8 k/uL (3.8-10.6)
[2017-10-30 09:46] LABS: HCT 55.4 % (39.0-53.0)
--- NOTE | 2017-10-30 10:24 | P.PN ---
Subjective Progress Note Date: 10/30/17 Principal diagnosis: Chronic atrial fibrillation This is a pleasant 86-year-old gentleman with a past medical history significant for paroxysmal atrial fibrillation, hypertension, dyslipidemia, and mild aortic stenosis as well as mild cardiomyopathy with an ejection fraction between 40-45% based on echocardiogram was performed in July 2017 presented to the hospital complaining of heart racing and fluttering. The patient did not have any symptoms of chest pain or chest discomfort, no shortness of breath, no dizziness or lightheadedness and no syncope. When he presented to the hospital he was found to be in atrial fibrillation with RVR with a heart rate around 120 bpm. Because of that the patient was placed in the hospital and he was started on Cardizem and drip. Beside that the patient was receiving Coreg 12.5 mg by mouth twice a day as an outpatient and that was continued. The patient is not on any oral anticoagulation for unknown reason probably because of his age as well as high risk of falling and bleeding. The cardiac enzymes were checked and came in to be slightly abnormal. The EKG showed atrial fibrillation with RVR and nonspecific changes without any ischemic changes. On follow-up with the patient today, he is feeling slightly better. He denies having any chest pain or chest discomfort or shortness of breath or dizziness or lightheadedness. Currently he is on amiodarone IV along with Coreg and he is in A. fib with controlled heart rate. I am going to DC the amiodarone IV and start the patient on amiodarone by mouth at 400 mg by mouth twice a day and continue monitoring the patient for additional 24 hours. Objective - Vital Signs Vital signs: Vital Signs Temp 96.0 F L 10/30/17 08:00 Pulse 93 10/30/17 08:00 Resp 18 10/30/17 08:00 BP 119/84 10/30/17 08:00 Pulse Ox 94 L 10/30/17 08:00 Intake & Output 10/29/17 10/30/17 10/30/17 18:59 06:59 18:59 Intake Total 899.423 250 0 Output Total 200 350 Balance 699.423 -100 0 Weight 99.6 kg Intake: IV 205 0 Amiodarone 450 mg In 195 0 Dextrose 5% in Water 250 ml @ 1 MG/MIN 33.33 mls/ hr IV .Q7H31M [facility] Rx#: [id number] Invasive Line 2 10 Intake, IV Titration 214.423 250 Amount Amiodarone 450 mg In 214.423 250 Dextrose 5% in Water 250 ml @ 1 MG/MIN 33.33 mls/ hr IV .Q7H31M [facility] Rx#: [id number] Oral 480 Output: Urine 200 350 Other: Voiding Method Urinal Urinal # Voids 2 - Constitutional General appearance: Present: no acute distress - Respiratory Respiratory: bilateral: diminished - Cardiovascular Rhythm: irregularly irregular Heart sounds: normal: S1, S2 - Labs CBC & Chem 7: 10/30/17 05:17 18 05:17 Labs: Abnormal Lab Results - Last 24 Hours (Table) 10/30/17 10/30/17 Range/Units 05:17 05:17 WBC 15.8 H (3.8-10.6) k/uL RBC 6.12 H (4.30-5.90) m/uL Hct 55.4 H (39.0-53.0) % Plt Count 478 H (150-450) k/uL Neutrophils # 11.3 H (1.3-7.7) k/uL Monocytes # 1.8 H (0-1.0) k/uL Sodium 131 L (137-145) mmol/L Chloride 94 L (98-107) mmol/L BUN 29 H (9-20) mg/dL Glucose 131 H (74-99) mg/dL Albumin 3.3 L (3.5-5.0) g/dL Microbiology - Last 24 Hours (Table) 10/28/17 21:05 Blood Culture - Preliminary Blood No Growth after 24 hours 10/28/17 16:25 Urine Culture - Final Urine,Voided Assessment and Plan Assessment: Assessment #1 A. fib with RVR. The patient does have history of paroxysmal atrial fibrillation #2 marginly a low blood pressure with a systolic pressure of 100 mmHg #3 cardiomyopathy and known if is ischemic or nonischemic with an EF of 40-45% #4 mild aortic stenosis #5 mildly abnormal cardiac enzymes Plan #1 DC amiodarone IV and start the patient on amiodarone by mouth #2 continue the Coreg at the current dose #3 possible discharge in the next 24 hours Thank you for allowing us participate in his care and we will continue following up with the patient
[2017-10-30] MEDS: AMIODARONE 200 MG TAB PO SCH ×2 (11:01→20:20)
--- NOTE | 2017-10-30 11:04 | P.PN ---
Subjective Progress Note Date: 10/30/17 This is an 86-year-old male who presented to the emergency room with palpitations and feeling short of breath. Patient has a known history of atrial fibrillation but not on any anticoagulation due to high risk of falls. Other medical history includes prostate cancer, hyperlipidemia, hypertension, sleep apnea and IBS. EKG on admission showed A. fib with RVR. Cardiology was consulted and patient was placed on Cardizem drip. Chest x-ray completed in ER showing correlation for CHF exacerbation as there is cardiomegaly with suspected new central vascular congestion and persistent small bilateral pleural effusions on back on a chronic emphysematous changes. Patient was given 40 mg IV Lasix in the emergency room. Troponin levels drawn 0.043, 0.055 and 0.067, cardiology following. Per cardiology Cardizem drip has been DC'd and patient started on amiodarone bolus and drip. White blood cell on admission 15.8. Rocephin has been ordered for antibiotic. Urine and blood cultures have been ordered along with two-view chest x-ray. Patient denies chest pain at this time and states shortness of breath has improved. Patient denies any urinary symptoms. Patient denies nausea vomiting or diarrhea. 10/30/2017 patient remains atrial fibrillation noted on telemetry heart rate is controlled. Cardiology has discontinued the amiodarone drip. And started him on oral amiodarone. Cardiology recommending to monitor patient for another 24 hours. He denies any chest pain or shortness of breath. Denies any nausea or vomiting. Denies any bowel movement changes or urinary symptoms. Objective - Vital Signs Vital signs: Vital Signs Temp 96.0 F L 10/30/17 08:00 Pulse 93 10/30/17 08:00 Resp 18 10/30/17 08:00 BP 119/84 10/30/17 08:00 Pulse Ox 94 L 10/30/17 08:00 Intake & Output 10/29/17 10/30/17 10/30/17 18:59 06:59 18:59 Intake Total 899.423 250 240 Output Total 200 350 Balance 699.423 -100 240 Weight 99.6 kg Intake: IV 205 0 Amiodarone 450 mg In 195 0 Dextrose 5% in Water 250 ml @ 1 MG/MIN 33.33 mls/ hr IV .Q7H31M [facility] Rx#: [id number] Invasive Line 2 10 Intake, IV Titration 214.423 250 Amount Amiodarone 450 mg In 214.423 250 Dextrose 5% in Water 250 ml @ 1 MG/MIN 33.33 mls/ hr IV .Q7H31M [facility] Rx#: [id number] Oral 480 240 Output: Urine 200 350 Other: Voiding Method Urinal Urinal # Voids 2 - Exam Head normocephalic Neck supple Lungs clear to auscultation bilaterally no wheezing or crackles Heart irregular rhythm. A. fib on monitor Abdomen is soft nontender nondistended positive bowel sounds no hepatosplenomegaly Extremities no edema Neuro alert and orientated to 3 - Labs CBC & Chem 7: 10/30/17 05:17 18 05:17 Labs: Abnormal Lab Results - Last 24 Hours (Table) 10/30/17 10/30/17 Range/Units 05:17 05:17 WBC 15.8 H (3.8-10.6) k/uL RBC 6.12 H (4.30-5.90) m/uL Hct 55.4 H (39.0-53.0) % Plt Count 478 H (150-450) k/uL Neutrophils # 11.3 H (1.3-7.7) k/uL Monocytes # 1.8 H (0-1.0) k/uL Sodium 131 L (137-145) mmol/L Chloride 94 L (98-107) mmol/L BUN 29 H (9-20) mg/dL Glucose 131 H (74-99) mg/dL Albumin 3.3 L (3.5-5.0) g/dL Microbiology - Last 24 Hours (Table) 10/28/17 21:05 Blood Culture - Preliminary Blood No Growth after 24 hours 10/28/17 16:25 Urine Culture - Final Urine,Voided Assessment and Plan Assessment: 1. Atrial fibrillation with rapid ventricular response: Patient does have history of paroxysmal atrial fibrillation. Was not on coagulation due to high risk of fall. EKG completed emergency room showing A. fib with RVR. Cardiology is following. Cardizem drip has been D/C. Amiodarone drip discontinued per cardiology. Patient has been placed on oral amiodarone. Cardiology recommending to monitor patient for another 24 hours before discharge 2. Elevated troponin. Troponin level 0.043, 0.055 and 0.067. Evaluated by cardiology 3. Leukocytosis. White blood cell 15.8. Urine and blood cultures have been ordered. The chest x-ray also ordered. Patient started on Rocephin. 4. History of prostate cancer 5. History of hyperlipidemia. Continue statin 6. History of essential hypertension. Patient currently on Coreg and hydrochlorothiazide 7. History of cardiomyopathy and unknown if it is ischemic or nonischemic. EF of 40-45% 8. Hyponatremia: Sodium 131. Continue to monitor 9. Possible acute systolic CHF exacerbation: Check BNP. Chest x-ray reviewed. Patient did receive a dose of IV Lasix in the ER DVT prophylaxis Lovenox and GI prophylaxis Protonix I performed an examination of the patient and discussed their management with the physician [employer]. I have reviewed the Physician [employer] Consultant's notes and agree with the documented findings and plan of care
[2017-10-30] MEDS: TAMSULOSIN 0.4 MG CAP.ER.24H PO SCH (20:20)
[2017-10-30] MEDS: ZOLPIDEM 5 MG TAB PO SCH (20:20)
[2017-10-30] MEDS: SERTRALINE 50 MG TAB PO SCH (20:20)
[2017-10-30] MEDS: ATORVASTATIN 40 MG TAB PO SCH (20:20)
[2017-10-31 06:18] LABS: Basophils # (A) 0.1 k/uL (0-0.2); Basophils % (A) 1 %; Eosinophils # (A) 0.8 k/uL (0-0.7); Eosinophils % (A) 5 %; HCT 51.4 % (39.0-53.0); HGB 15.9 gm/dL (13.0-17.5); Lymphocytes # (A) 1.3 k/uL (1.0-4.8); Lymphocytes % (A) 9 %; MCH 27.6 pg (25.0-35.0); MCHC 30.9 g/dL (31.0-37.0); MCV 89.1 fL (80.0-100.0); Mean Platelet Volume 7.3; Monocytes # (A) 1.6 k/uL (0-1.0); Monocytes % (A) 11 %; Neutrophils # (A) 10.8 k/uL (1.3-7.7); Neutrophils % (A) 72 %; Platelet Count 487 k/uL (150-450); RBC 5.76 m/uL (4.30-5.90); RDW 14.4 % (11.5-15.5); WBC 14.9 k/uL (3.8-10.6)
[2017-10-31 06:19] LABS: Calcium 8.6 mg/dL (8.4-10.2); Potassium 4.9 mmol/L (3.5-5.1); Total Bilirubin 0.7 mg/dL (0.2-1.3)
[2017-10-31] MEDS: CARVEDILOL 12.5 MG TAB PO SCH (06:37)
[2017-10-31] MEDS: PANTOPRAZOLE 40 MG TABLET PO SCH (06:37)
[2017-10-31] MEDS: SYMBICORT 160-4.5 MCG INHALER INHALATION SCH ×2 (08:01→20:37)
[2017-10-31] MEDS: VIT A,C & E-LUTEIN-MINERALS 1 EACH TAB PO SCH ×2 (08:37→20:29)
[2017-10-31] MEDS: GABAPENTIN 100 MG CAP PO SCH ×2 (08:37→20:28)
[2017-10-31] MEDS: ASPIRIN 325 MG TAB PO SCH (08:38)
[2017-10-31] MEDS: cefTRIAXone IN SWFI 1,000 MG/10 ML SYRINGE IVP SCH (08:38)
[2017-10-31] MEDS: FINASTERIDE 5 MG TAB PO SCH (08:38)
[2017-10-31] MEDS: ENOXAPARIN 40 MG/0.4 ML SYRINGE SQ SCH (08:38)
[2017-10-31] MEDS: AMIODARONE 200 MG TAB PO SCH ×2 (08:38→20:28)
--- NOTE | 2017-10-31 10:12 | P.PN ---
Subjective Progress Note Date: 10/31/17 This is an 86-year-old male who presented to the emergency room with palpitations and feeling short of breath. Patient has a known history of atrial fibrillation but not on any anticoagulation due to high risk of falls. Other medical history includes prostate cancer, hyperlipidemia, hypertension, sleep apnea and IBS. EKG on admission showed A. fib with RVR. Cardiology was consulted and patient was placed on Cardizem drip. Chest x-ray completed in ER showing correlation for CHF exacerbation as there is cardiomegaly with suspected new central vascular congestion and persistent small bilateral pleural effusions on back on a chronic emphysematous changes. Patient was given 40 mg IV Lasix in the emergency room. Troponin levels drawn 0.043, 0.055 and 0.067, cardiology following. Per cardiology Cardizem drip has been DC'd and patient started on amiodarone bolus and drip. White blood cell on admission 15.8. Rocephin has been ordered for antibiotic. Urine and blood cultures have been ordered along with two-view chest x-ray. Patient denies chest pain at this time and states shortness of breath has improved. Patient denies any urinary symptoms. Patient denies nausea vomiting or diarrhea. 10/30/2017 patient remains atrial fibrillation noted on telemetry heart rate is controlled. Cardiology has discontinued the amiodarone drip. And started him on oral amiodarone. Cardiology recommending to monitor patient for another 24 hours. He denies any chest pain or shortness of breath. Denies any nausea or vomiting. Denies any bowel movement changes or urinary symptoms. 10/31/2017 patient has no new complaints. He remains on atrial fibrillation on monitoring analyst. Heart rate mostly trolled. He does have a few heart rates around 108. Patient hypotensive this morning with a BP of 90/56. Hydrochlorothiazide discontinued yesterday due to sodium level 131. White count has decreased from 15.8 14.9. Awaiting pulmonary consult. Patient denies any chest pain shortness of breath or cough. Denies any nausea or vomiting. Reports having bowel movements. Denies any difficulty urinating.. Patient is down to 2 L oxygen satting at 92% Objective - Vital Signs Vital signs: Vital Signs Temp 96.9 F L 10/31/17 08:00 Pulse 78 10/31/17 08:00 Resp 18 10/31/17 08:00 BP 90/56 10/31/17 08:00 Pulse Ox 92 L 10/31/17 08:00 Intake & Output 10/30/17 10/31/17 10/31/17 18:59 06:59 18:59 Intake Total 476 240 Output Total 400 Balance 476 -160 Weight 101.6 kg Intake: IV 0 Amiodarone 450 mg In 0 Dextrose 5% in Water 250 ml @ 1 MG/MIN 33.33 mls/ hr IV .Q7H31M [facility] Rx#: [id number] Oral 476 240 Output: Urine 400 Other: Voiding Method Urinal Incontinent # Voids 1 2 - Exam Head normocephalic Neck supple Lungs diminished bilaterally Heart irregular rhythm. A. fib on monitor Abdomen is soft nontender nondistended positive bowel sounds no hepatosplenomegaly Extremities no edema Neuro alert and orientated to 3 - Labs CBC & Chem 7: 10/31/17 05:39 10/31/17 05:39 Labs: Abnormal Lab Results - Last 24 Hours (Table) 10/31/17 10/31/17 Range/Units 05:39 05:39 WBC 14.9 H (3.8-10.6) k/uL MCHC 30.9 L (31.0-37.0) g/dL Plt Count 487 H (150-450) k/uL Neutrophils # 10.8 H (1.3-7.7) k/uL Monocytes # 1.6 H (0-1.0) k/uL Eosinophils # 0.8 H (0-0.7) k/uL Sodium 131 L (137-145) mmol/L Chloride 96 L (98-107) mmol/L BUN 31 H (9-20) mg/dL Glucose 111 H (74-99) mg/dL Total Protein 6.0 L (6.3-8.2) g/dL Albumin 3.0 L (3.5-5.0) g/dL Microbiology - Last 24 Hours (Table) 10/28/17 21:05 Blood Culture - Preliminary Blood No Growth after 48 hours Assessment and Plan Assessment: 1. Atrial fibrillation with rapid ventricular response: Patient does have history of paroxysmal atrial fibrillation. Was not on coagulation due to high risk of fall. EKG completed emergency room showing A. fib with RVR. Cardiology is following. Cardizem drip has been D/C. Amiodarone drip discontinued per cardiology. Patient has been placed on oral amiodarone. Cardiology following 2. Elevated troponin. Troponin level 0.043, 0.055 and 0.067. Evaluated by cardiology 3. Leukocytosis. White count history down from 15.8-14.9. Concerns about possible developing pneumonia. Patient remains on Rocephin. Urine culture and blood culture negative. Await pulmonary evaluation. We'll repeat chest x-ray. 4. History of prostate cancer 5. History of hyperlipidemia. Continue statin 6. History of essential hypertension. Patient currently on Coreg and hydrochlorothiazide 7. History of cardiomyopathy and unknown if it is ischemic or nonischemic. EF of 40-45% 8. Hyponatremia: Sodium 131. Continue to monitor. Hydrochlorothiazide discontinued yesterday 9. Possible acute systolic CHF exacerbation: BMP 2400. Patient did receive a dose of IV Lasix in the ER. Repeat chest x-ray today DVT prophylaxis Lovenox and GI prophylaxis Protonix I performed an examination of the patient and discussed their management with the physician [employer] Finisher. I have reviewed the Physician Gas[employer] Finisher's notes and agree with the documented findings and plan of care
--- NOTE | 2017-10-31 10:41 | P.PN ---
Subjective Progress Note Date: 10/31/17 Principal diagnosis: Chronic atrial fibrillation This is a pleasant 86-year-old gentleman with a past medical history significant for paroxysmal atrial fibrillation, hypertension, dyslipidemia, and mild aortic stenosis as well as mild cardiomyopathy with an ejection fraction between 40-45% based on echocardiogram was performed in July 2017 presented to the hospital complaining of heart racing and fluttering. The patient did not have any symptoms of chest pain or chest discomfort, no shortness of breath, no dizziness or lightheadedness and no syncope. When he presented to the hospital he was found to be in atrial fibrillation with RVR with a heart rate around 120 bpm. Because of that the patient was placed in the hospital and he was started on Cardizem and drip. Beside that the patient was receiving Coreg 12.5 mg by mouth twice a day as an outpatient and that was continued. The patient is not on any oral anticoagulation for unknown reason probably because of his age as well as high risk of falling and bleeding. The cardiac enzymes were checked and came in to be slightly abnormal. The EKG showed atrial fibrillation with RVR and nonspecific changes without any ischemic changes. I'll follow-up with the patient today, overall he is weak. No specific symptoms of chest pain or chest discomfort but he seems to be in very mild respiratory distress. He does have bilateral rhonchi and diminished breathing sounds bilaterally. I am getting a chest x-ray and BNP on him. Beside that I' m going to start the patient on Lasix IV. He still in A. fib with slightly uncontrolled heart rate and the blood pressure has been marginally low. Because of that I will DC the Coreg and start the patient on metoprolol. Also I will start him on oral anticoagulation. Objective - Vital Signs Vital signs: Vital Signs Temp 96.9 F L 10/31/17 08:00 Pulse 78 10/31/17 08:00 Resp 18 10/31/17 08:00 BP 90/56 10/31/17 08:00 Pulse Ox 92 L 10/31/17 08:00 Intake & Output 10/30/17 10/31/17 10/31/17 18:59 06:59 18:59 Intake Total 476 240 Output Total 400 Balance 476 -160 Weight 101.6 kg Intake: IV 0 Amiodarone 450 mg In 0 Dextrose 5% in Water 250 ml @ 1 MG/MIN 33.33 mls/ hr IV .Q7H31M [facility] Rx#: [id number] Oral 476 240 Output: Urine 400 Other: Voiding Method Urinal Incontinent # Voids 1 2 - Constitutional General appearance: Present: no acute distress - Respiratory Respiratory: bilateral: diminished, rales - Cardiovascular Rhythm: irregularly irregular Heart sounds: normal: S1, S2 - Labs CBC & Chem 7: 10/31/17 05:39 10/31/17 05:39 Labs: Abnormal Lab Results - Last 24 Hours (Table) 10/31/17 10/31/17 Range/Units 05:39 05:39 WBC 14.9 H (3.8-10.6) k/uL MCHC 30.9 L (31.0-37.0) g/dL Plt Count 487 H (150-450) k/uL Neutrophils # 10.8 H (1.3-7.7) k/uL Monocytes # 1.6 H (0-1.0) k/uL Eosinophils # 0.8 H (0-0.7) k/uL Sodium 131 L (137-145) mmol/L Chloride 96 L (98-107) mmol/L BUN 31 H (9-20) mg/dL Glucose 111 H (74-99) mg/dL Total Protein 6.0 L (6.3-8.2) g/dL Albumin 3.0 L (3.5-5.0) g/dL Microbiology - Last 24 Hours (Table) 10/28/17 21:05 Blood Culture - Preliminary Blood No Growth after 48 hours Assessment and Plan Assessment: Assessment #1 A. fib with RVR. The patient does have history of paroxysmal atrial fibrillation #2 marginly a low blood pressure with a systolic pressure of 100 mmHg #3 cardiomyopathy and known if is ischemic or nonischemic with an EF of 40-45% #4 mild aortic stenosis #5 mildly abnormal cardiac enzymes Plan #1 DC Coreg and start metoprolol #2 start the patient on IV Lasix #3 obtain a chest x-ray and BNP #4 start oral anticoagulation Thank you for allowing us participate in his care and we will continue following up with the patient
--- NOTE | 2017-10-31 11:11 | XR ---
EXAMINATION TYPE: XR chest 1V DATE OF EXAM: 10/31/2017 COMPARISON: 10/29/2017 HISTORY: Shortness of breath TECHNIQUE: Single frontal view of the chest is obtained. FINDINGS: Retrocardiac airspace appears improved from the prior. This would be better assessed with a lateral image. There is no additional new focal air space opacity, pleural effusion, or pneumothora x seen. Previously seen pulmonary vascular congestion has resolved. The cardiac silhouette size is m ildly enlarged, similar to the prior exam. The osseous structures are intact. Extensive right gleno humeral arthropathy is partially visualized. IMPRESSION: Resolution of the previously seen pulmonary vascular congestion. Retrocardiac opacity ap pears improved from the prior but would be better evaluated with a lateral image.
[2017-10-31] MEDS: CLIDINIUM-chlordiazePOXIDE (2.5-5 MG) CAP PO SCH (12:18)
--- NOTE | 2017-10-31 14:15 | P.CNPUL ---
History of Present Illness Consult date: 10/31/17 Reason for consult: dyspnea History of present illness: 86-year-old male patient, obese, with known history of obstructive sleep apnea, presented to the hospital because of atrial fibrillation with rapid vascular response. Note that he has mild CHF with a previous echocardiogram showing an ejection fraction of 40-45% based on echocardiogram from July 2017. The patient denies having any chest pain. He denied having any shortness of breath. His chest x-ray was consistent with CHF and early pulmonary edema. Initially his heart rate was in the 120-140 range. The patient was started on a Cardizem drip and the rate was effectively control and he was started also on Coreg 12.5 mg by mouth twice a day. He was diuresed and a subsequent chest x- ray shows improvement in the volume status he is currently free of any chest pain. No cough or sputum production. No chest tightness or wheezing. His BiPAP is at the bedside and the patient has severe obstructive sleep apnea and currently is on a BiPAP pressure 15/11 cm of water and his AHI was in treatment is less than 5. He is using his Simplus fullface mask however this needs to be changed knowing that the patient is having some leaks around the mask. No major edema in lower extremities. No altered mentation. No other complaints otherwise for now. Review of Systems Constitutional: Reports daytime sleepiness, Reports fatigue Eyes: denies blurred vision, denies bulging eye, denies decreased vision Ears: bilateral: decreased hearing, deny: ear discharge, earache Ears, nose, mouth and throat: Denies headache, Denies sore throat Cardiovascular: Reports decreased exercise tolerance, Reports dyspnea on exertion, Reports irregular heart beat Respiratory: Reports dyspnea, Reports sleep apnea, Reports snoring Gastrointestinal: Denies abdominal pain, Denies diarrhea, Denies nausea, Denies vomiting Genitourinary: Reports as per HPI Musculoskeletal: Reports as per HPI Musculoskeletal: absent: ankle pain, ankle stiffness, ankle swelling Integumentary: Denies pruritus, Denies rash Neurological: Reports as per HPI Psychiatric: Reports as per HPI Endocrine: Reports as per HPI Hematologic/Lymphatic: Reports as per HPI Allergic/Immunologic: Reports as per HPI Past Medical History Past Medical History: Atrial Fibrillation, Cancer, Hyperlipidemia, Hypertension , Pneumonia, Sleep Apnea/CPAP/BIPAP Additional Past Medical History / Comment(s): CHF, atrial fibrillation, prostate cancer, hyperlipidemia, obstructive sleep apnea, hypertension, IBS, COPD maintained on Symbicort on outpatient basis, obesity History of Any Multi-Drug Resistant Organisms: None Reported Past Surgical History: Appendectomy, Orthopedic Surgery Additional Past Surgical History / Comment(s): back surgery, bilateral hip replacement Past Anesthesia/Blood Transfusion Reactions: No Reported Reaction Smoking Status: Former smoker - Past Family History Mother Family Medical History: Cancer Additional Family Medical History / Comment(s): stomach cancer Father Family Medical History: CVA/TIA Medications and Allergies Home Medications Medication Instructions Recorded Confirmed Type CLIDINIUM-chlordiazePOXIDE [Librax] 1 - 2 tab PO DAILY 07/12/17 10/28/17 History Ergocalciferol (Vitamin D2) 50,000 unit PO MO 07/12/17 10/28/17 History [Vitamin D2] Finasteride [Proscar] 5 mg PO DAILY 07/12/17 10/28/17 History Gabapentin [Neurontin] 200 mg PO BID 07/12/17 10/28/17 History Hydrochlorothiazide [Hydrodiuril] 12.5 mg PO DAILY 07/12/17 10/28/17 History Sertraline [Zoloft] 50 mg PO HS 07/12/17 10/28/17 History Simvastatin [Zocor] 40 mg PO HS 07/12/17 10/28/17 History Tamsulosin HCl [Flomax] 0.4 mg PO HS 07/12/17 10/28/17 History Vit C/E/Zn/Coppr/Lutein/Zeaxan 1 cap PO BID 07/12/17 10/28/17 History [Preservision Areds 2 Softgel] Zolpidem [Ambien] 5 mg PO HS 07/12/17 10/28/17 History Albuterol Inhaler [Ventolin Hfa 1 - 2 puff INHALATION Q6HR PRN #1 07/15/1710/28 Rx Inhaler] inhaler Aspirin [Adult Low Dose Aspirin EC] 81 mg PO DAILY 10/28/17 10/28/17 History Budesonide-Formot 160-4.5 Mcg 2 puff INHALATION RT-BID 10/28/17 10/28/17 History [Symbicort 160-4.5 Mcg Inhaler] Carvedilol [Coreg] 12.5 mg PO BID 10/28/17 10/28/17 History Ipratropium-Albuterol Nebulize 3 ml INHALATION RT-BID PRN 10/28/17 10/28/17 History [Duoneb 0.5 mg-3 mg/3 ml Soln] Umeclidinium Brm/Vilanterol Tr 1 puff INHALATION DAILY #1 device 10/31/17 Rx [Anoro Ellipta 62.5-25 Mcg INH] Allergies Allergy/AdvReac Type Severity Reaction Status Date / Time codeine AdvReac Hallucinati Verified 10/28/17 15:46 ons Physical Exam Vitals: Vital Signs Temp Pulse Resp BP Pulse Ox 10/31/17 11:43 97.5 F L 92 18 126/68 91 L 10/31/17 08:00 96.9 F L 78 18 90/56 92 L 10/31/17 03:13 108 H 18 10/31/17 03:12 99.1 F 108 H 18 116/76 93 L 10/30/17 23:30 97.9 F 102 H 18 117/70 91 L 10/30/17 20:10 98.8 F 107 H 18 122/87 91 L 10/30/17 19:04 93 L 10/30/17 15:59 99.0 F 111 H 18 107/67 93 L Intake and Output 10/30/17 10/31/17 10/31/17 22:59 06:59 14:59 Intake Total 240 236 Output Total 200 200 Balance 40 -200 236 Intake: Oral 240 236 Output: Urine 200 200 Other: Voiding Method Urinal Urinal Incontinent # Voids 1 2 2 Weight 101.6 kg Obese, comfortable likely distress. Head exam was generally normal. There was no scleral icterus or corneal arcus. Mucous membranes were moist. Neck is short and supple and the patient is a crowding of the posterior oropharynx with a Mallampati class IV. No goiter or neck masses. Lungs sounds are diminished bilaterally along with some scattered expiratory wheezes heard throughout the lung romero. There is diminished breath sounds especially lung bases bilaterally. Heart sounds are regular, distant, rate is controlled and the patient has no significant murmurs appreciated. Abdominal exam revealed normal bowel sounds. The abdomen was soft, non-tender, and without masses, organomegaly, or appreciable enlargement of the abdominal aorta. Examination of the extremities revealed easily palpable radial, femoral and pedal pulses. There was no cyanosis, clubbing or edema. Examination of the skin revealed no evidence of significant rashes, suspicious appearing nevi or other concerning lesions. Neurologic awake and alert and there is no focal neurological deficits. Results - Laboratory Findings CBC and BMP: 10/31/17 05:39 10/31/17 05:39 PT/INR, D-dimer PT 11.8 sec (9.0-12.0) 10/28/17 15:13 INR 1.2 (<1.2) H 10/28/17 15:13 Abnormal lab findings: Abnormal Labs 10/28/17 10/28/17 10/28/17 15:13 15:13 15:13 WBC 15.8 H RBC 6.30 H Hct 54.3 H MCHC Plt Count 491 H Neutrophils # 12.1 H Monocytes # 1.6 H Eosinophils # INR Sodium 135 L Chloride 96 L BUN 25 H Glucose 122 H Total Creatine Kinase 46 L Troponin I 0.043 H* Total Protein Albumin HDL Cholesterol Urine Protein Urine Bacteria Urine Mucus 10/28/17 10/28/17 10/28/17 15:13 16:25 21:05 WBC RBC Hct MCHC Plt Count Neutrophils # Monocytes # Eosinophils # INR 1.2 H Sodium Chloride BUN Glucose Total Creatine Kinase Troponin I 0.055 H* Total Protein Albumin HDL Cholesterol Urine Protein 2+ H Urine Bacteria Rare H Urine Mucus Rare H 10/29/17 10/29/17 10/29/17 02:57 02:57 02:57 WBC RBC Hct MCHC Plt Count Neutrophils # Monocytes # Eosinophils # INR Sodium 135 L Chloride 96 L BUN 24 H Glucose 121 H Total Creatine Kinase Troponin I 0.067 H* Total Protein Albumin 3.4 L HDL Cholesterol 37 L Urine Protein Urine Bacteria Urine Mucus 10/30/17 10/30/17 10/31/17 05:17 05:17 05:39 WBC 15.8 H RBC 6.12 H Hct 55.4 H MCHC Plt Count 478 H Neutrophils # 11.3 H Monocytes # 1.8 H Eosinophils # INR Sodium 131 L 131 L Chloride 94 L 96 L BUN 29 H 31 H Glucose 131 H 111 H Total Creatine Kinase Troponin I Total Protein 6.0 L Albumin 3.3 L 3.0 L HDL Cholesterol Urine Protein Urine Bacteria Urine Mucus 10/31/17 05:39 WBC 14.9 H RBC Hct MCHC 30.9 L Plt Count 487 H Neutrophils # 10.8 H Monocytes # 1.6 H Eosinophils # 0.8 H INR Sodium Chloride BUN Glucose Total Creatine Kinase Troponin I Total Protein Albumin HDL Cholesterol Urine Protein Urine Bacteria Urine Mucus - Diagnostic Findings Chest x-ray: image reviewed Assessment and Plan Plan: Assessment 1 acute CHF, with mild systolic dysfunction and an ejection fraction of 40-45%. The patient CHF decompensated because of atrial fibrillation and rapid ventricular response. 2 A. fib relation with rapid ventricular response, rate is controlled for now 3 COPD 4 mild aortic stenosis 5 prostate cancer 6 hypertension 7 hyperlipidemia 8 obstructive sleep apnea maintained on a BiPAP at a pressure 15/11 cm of water. 9 degenerative arthritis with bilateral hip replacement Plan Check the patient's BiPAP unit and the patient has been effectively treated and he is demonstrating adequate compliance yet he is having excessive amount of leaks around his fullface mask and this is to be replaced later stage. His AHI while on treatment is less than 5. He is currently on a BiPAP at a pressure 15/ 11 cm of water. This will be continued. In regards to his atrial fibrillation , the patient is under better control and currently is on amiodarone 400 mg by mouth twice a day and he was also started on metoprolol 25 mg by mouth 3 times a day. He was diuresed adequately with IV Lasix and subsequent chest x-ray shows improvement of volume status is resolution of the previous described CHF findings. He is also on long-term and to coagulation with Eliquis. In regards to his COPD, the patient is on Symbicort for now and this will be continued. Outpatient medications have been ordered resume. We'll continue to follow.
--- NOTE | 2017-10-31 14:48 | P.CONS ---
History of Present Illness - Chief Complaint Medical debility - History of Present Illness I had the opportunity to see patient for inpatient rehab consultation with regard to medical debility. He was admitted to [facility] October 28 with palpitations. Seen by Dr. Schaffer for atrial fibrillation. Seen by Dr. Esteves for CHF. Chest x-rays followed demonstrate resolution of CHF. PT reports minimal assistance for functional ability. OT prescribed. Previous functional history as elicited from patient: 86-year-old right-handed white male who is and [place] [facility] [place] Reports meals and laundry provided. Describes independent with own standing shower and gait with 4 [address]ed [address]er[address] not drive. Past Medical History Past Medical History: Atrial Fibrillation, Cancer, Hyperlipidemia, Hypertension , Pneumonia, Sleep Apnea/CPAP/BIPAP Additional Past Medical History / Comment(s): CHF, atrial fibrillation, prostate cancer, hyperlipidemia, obstructive sleep apnea, hypertension, IBS, COPD maintained on Symbicort on outpatient basis, obesity History of Any Multi-Drug Resistant Organisms: None Reported Past Surgical History: Appendectomy, Orthopedic Surgery Additional Past Surgical History / Comment(s): back surgery, bilateral hip replacement Past Anesthesia/Blood Transfusion Reactions: No Reported Reaction Smoking Status: Former smoker - Past Family History Mother Family Medical History: Cancer Additional Family Medical History / Comment(s): stomach cancer Father Family Medical History: CVA/TIA Medications and Allergies Home Medications Medication Instructions Recorded Confirmed Type CLIDINIUM-chlordiazePOXIDE [Librax] 1 - 2 tab PO DAILY 07/12/17 10/28/17 History Ergocalciferol (Vitamin D2) 50,000 unit PO MO 07/12/17 10/28/17 History [Vitamin D2] Finasteride [Proscar] 5 mg PO DAILY 07/12/17 10/28/17 History Gabapentin [Neurontin] 200 mg PO BID 07/12/17 10/28/17 History Hydrochlorothiazide [Hydrodiuril] 12.5 mg PO DAILY 07/12/17 10/28/17 History Sertraline [Zoloft] 50 mg PO HS 07/12/17 10/28/17 History Simvastatin [Zocor] 40 mg PO HS 07/12/17 10/28/17 History Tamsulosin HCl [Flomax] 0.4 mg PO HS 07/12/17 10/28/17 History Vit C/E/Zn/Coppr/Lutein/Zeaxan 1 cap PO BID 07/12/17 10/28/17 History [Preservision Areds 2 Softgel] Zolpidem [Ambien] 5 mg PO HS 07/12/17 10/28/17 History Albuterol Inhaler [Ventolin Hfa 1 - 2 puff INHALATION Q6HR PRN #1 07/15/1710/28 Rx Inhaler] inhaler Aspirin [Adult Low Dose Aspirin EC] 81 mg PO DAILY 10/28/17 10/28/17 History Budesonide-Formot 160-4.5 Mcg 2 puff INHALATION RT-BID 10/28/17 10/28/17 History [Symbicort 160-4.5 Mcg Inhaler] Carvedilol [Coreg] 12.5 mg PO BID 10/28/17 10/28/17 History Ipratropium-Albuterol Nebulize 3 ml INHALATION RT-BID PRN 10/28/17 10/28/17 History [Duoneb 0.5 mg-3 mg/3 ml Soln] Umeclidinium Brm/Vilanterol Tr 1 puff INHALATION DAILY #1 device 10/31/17 Rx [Anoro Ellipta 62.5-25 Mcg INH] Allergies Allergy/AdvReac Type Severity Reaction Status Date / Time codeine AdvReac Hallucinati Verified 10/28/17 15:46 ons Physical Exam Vitals: Vital Signs Temp Pulse Resp BP Pulse Ox 10/31/17 11:43 97.5 F L 92 18 126/68 91 L 10/31/17 08:00 96.9 F L 78 18 90/56 92 L 10/31/17 03:13 108 H 18 10/31/17 03:12 99.1 F 108 H 18 116/76 93 L 10/30/17 23:30 97.9 F 102 H 18 117/70 91 L 10/30/17 20:10 98.8 F 107 H 18 122/87 91 L 10/30/17 19:04 93 L 10/30/17 15:59 99.0 F 111 H 18 107/67 93 L Intake and Output 10/30/17 10/31/17 10/31/17 22:59 06:59 14:59 Intake Total 240 236 Output Total 200 200 Balance 40 -200 236 Intake: Oral 240 236 Output: Urine 200 200 Other: Voiding Method Urinal Urinal Incontinent # Voids 1 2 2 Weight 101.6 kg Skin: Atrophic, intact. General: Overweight to obese build and comfortable appearance. Head: Normocephalic, atraumatic. Eyes: Symmetric. Pupils equal round. Ears: Symmetric. Hearing within normal limits. Mouth: Clear. Neck: Supple. Carotid without bruit. Cardiac: Regular rate and rhythm. Lungs: Clear anteriorly and posteriorly. Abdomen: Soft active nontender overweight. Extremities: Normal tone. Neurological: Mental status: Alert, cooperative, pleasant. Cranial nerves: Symmetric facial tone and trapezius. Motor: Active movement all 4 limbs. Sensation: Intact throughout. DTRs: Symmetric and equal throughout. Mobility: Sits and stands with assistance of 1 person. Results CBC & Chem 7: 10/31/17 05:39 10/31/17 05:39 Labs: Abnormal Lab Results - Last 24 Hours (Table) 10/31/17 10/31/17 Range/Units 05:39 05:39 WBC 14.9 H (3.8-10.6) k/uL MCHC 30.9 L (31.0-37.0) g/dL Plt Count 487 H (150-450) k/uL Neutrophils # 10.8 H (1.3-7.7) k/uL Monocytes # 1.6 H (0-1.0) k/uL Eosinophils # 0.8 H (0-0.7) k/uL Sodium 131 L (137-145) mmol/L Chloride 96 L (98-107) mmol/L BUN 31 H (9-20) mg/dL Glucose 111 H (74-99) mg/dL Total Protein 6.0 L (6.3-8.2) g/dL Albumin 3.0 L (3.5-5.0) g/dL Microbiology - Last 24 Hours (Table) 10/28/17 21:05 Blood Culture - Preliminary Blood No Growth after 48 hours Assessment and Plan (1) Atrial fibrillation with RVR Current Visit: Yes Status: Acute Code(s): I48.91 - UNSPECIFIED ATRIAL FIBRILLATION SNOMED Code(s): 478155215930327 (2) Congestive heart failure Current Visit: Yes Status: Acute Code(s): I50.9 - HEART FAILURE, UNSPECIFIED SNOMED Code(s): 92104581 (3) Hypertensive urgency Current Visit: No Status: Acute Code(s): I16.0 - HYPERTENSIVE URGENCY SNOMED Code(s): 308401576 Plan: Impression: 1. Medical debility. 2. Atrial fibrillation. 3. CHF. 4. Hypertensive emergency. 5. Dyslipidemia. 6. History of cancer. Comments and plan: PT and OT ordered. At this time will follow therapies with yourself. Review patient's progress, Friday a.m.
[2017-10-31] MEDS: METOPROLOL TARTRATE 25 MG TAB PO SCH ×2 (15:17→20:29)
[2017-10-31] MEDS: ATORVASTATIN 40 MG TAB PO SCH (20:28)
[2017-10-31] MEDS: APIXABAN 2.5 MG TABLET PO SCH (20:28)
[2017-10-31] MEDS: TAMSULOSIN 0.4 MG CAP.ER.24H PO SCH (20:29)
[2017-10-31] MEDS: LORazepam 2 MG/ML INJ IV PRN (20:29)
[2017-10-31] MEDS: SERTRALINE 50 MG TAB PO SCH (20:29)
[2017-10-31] MEDS: ZOLPIDEM 5 MG TAB PO SCH (20:31)
[2017-10-31 21:06] LABS: Glucose,Whole Blood 119 mg/dL (75-99)
[2017-11-01] MEDS: PANTOPRAZOLE 40 MG TABLET PO SCH (06:27)
[2017-11-01 06:42] LABS: Basophils # (A) 0.1 k/uL (0-0.2); Basophils % (A) 0 %; Eosinophils # (A) 0.7 k/uL (0-0.7); Eosinophils % (A) 5 %; HCT 51.3 % (39.0-53.0); HGB 16.5 gm/dL (13.0-17.5); Lymphocytes # (A) 1.2 k/uL (1.0-4.8); Lymphocytes % (A) 8 %; MCH 28.4 pg (25.0-35.0); MCHC 32.1 g/dL (31.0-37.0); MCV 88.7 fL (80.0-100.0); Mean Platelet Volume 7.5; Monocytes # (A) 1.6 k/uL (0-1.0); Monocytes % (A) 11 %; Neutrophils # (A) 10.5 k/uL (1.3-7.7); Neutrophils % (A) 73 %; Platelet Count 505 k/uL (150-450); RBC 5.79 m/uL (4.30-5.90); RDW 14.2 % (11.5-15.5); WBC 14.4 k/uL (3.8-10.6)
[2017-11-01 06:52] LABS: Albumin 3.2 g/dL (3.5-5.0); Calcium 8.6 mg/dL (8.4-10.2); Potassium 5.2 mmol/L (3.5-5.1); Total Bilirubin 0.8 mg/dL (0.2-1.3); Total Protein 6.3 g/dL (6.3-8.2)
[2017-11-01] MEDS: FINASTERIDE 5 MG TAB PO SCH (08:08)
[2017-11-01] MEDS: CLIDINIUM-chlordiazePOXIDE (2.5-5 MG) CAP PO SCH (08:08)
[2017-11-01] MEDS: APIXABAN 2.5 MG TABLET PO SCH ×2 (08:10→22:01)
[2017-11-01] MEDS: cefTRIAXone IN SWFI 1,000 MG/10 ML SYRINGE IVP SCH (08:10)
[2017-11-01] MEDS: VIT A,C & E-LUTEIN-MINERALS 1 EACH TAB PO SCH ×2 (08:10→22:01)
[2017-11-01] MEDS: ASPIRIN 325 MG TAB PO SCH (08:10)
[2017-11-01] MEDS: AMIODARONE 200 MG TAB PO SCH ×2 (08:10→22:01)
[2017-11-01] MEDS: GABAPENTIN 100 MG CAP PO SCH ×2 (08:10→22:00)
[2017-11-01] MEDS: FUROSEMIDE 10 MG/ML 4 ML VIAL IV SCH (08:11)
[2017-11-01] MEDS: SYMBICORT 160-4.5 MCG INHALER INHALATION SCH ×2 (08:26→21:26)
[2017-11-01] MEDS: METOPROLOL TARTRATE 25 MG TAB PO SCH (09:53)
--- NOTE | 2017-11-01 10:57 | P.PN ---
Subjective Progress Note Date: 11/01/17 Principal diagnosis: Chronic atrial fibrillation This is a pleasant 86-year-old gentleman with a past medical history significant for paroxysmal atrial fibrillation, hypertension, dyslipidemia, and mild aortic stenosis as well as mild cardiomyopathy with an ejection fraction between 40-45% based on echocardiogram was performed in July 2017 presented to the hospital complaining of heart racing and fluttering. The patient did not have any symptoms of chest pain or chest discomfort, no shortness of breath, no dizziness or lightheadedness and no syncope. When he presented to the hospital he was found to be in atrial fibrillation with RVR with a heart rate around 120 bpm. Because of that the patient was placed in the hospital and he was started on Cardizem and drip. Beside that the patient was receiving Coreg 12.5 mg by mouth twice a day as an outpatient and that was continued. The patient is not on any oral anticoagulation for unknown reason probably because of his age as well as high risk of falling and bleeding. The cardiac enzymes were checked and came in to be slightly abnormal. The EKG showed atrial fibrillation with RVR and nonspecific changes without any ischemic changes. On follow-up with the patient today, he is feeling definitely better than yesterday in terms off the weakness as well as into of shortness of breath. The physical examination is better as well. His chest is differently more clear. Yesterday he was started on Lasix IV. The chest x-ray showed resolving pulmonary vascular congestions. I did stop the Coreg because of the low blood pressure and I started the patient on metoprolol. The heart rate still slightly uncontrolled and I'm going to increase the dose of metoprolol to 50 mg by mouth twice a day. Objective - Vital Signs Vital signs: Vital Signs Temp 97.4 F L 11/01/17 08:00 Pulse 107 H 11/01/17 08:00 Resp 18 11/01/17 08:00 BP 111/64 11/01/17 09:45 Pulse Ox 93 L 11/01/17 08:00 Intake & Output 10/31/17 11/01/17 11/01/17 18:59 06:59 18:59 Intake Total 472 120 240 Output Total 125 Balance 472 -5 240 Weight 103.5 kg Intake: Oral 472 120 240 Output: Urine 125 Other: Voiding Method Urinal Urinal Incontinent Incontinent # Voids 2 3 - Constitutional General appearance: Present: no acute distress - Respiratory Respiratory: bilateral: CTA - Cardiovascular Rhythm: irregularly irregular Heart sounds: normal: S1, S2 Abnormal Heart Sounds: Present: systolic murmur - Labs CBC & Chem 7: 11/01/17 06:05 11/01/17 06:05 Labs: Abnormal Lab Results - Last 24 Hours (Table) 10/31/17 11/01/17 11/01/17 Range/Units 21:04 06:05 06:05 WBC 14.4 H (3.8-10.6) k/uL Plt Count 505 H (150-450) k/uL Neutrophils # 10.5 H (1.3-7.7) k/uL Monocytes # 1.6 H (0-1.0) k/uL Sodium 134 L (137-145) mmol/L Potassium 5.2 H (3.5-5.1) mmol/L Chloride 96 L (98-107) mmol/L BUN 31 H (9-20) mg/dL Glucose 117 H (74-99) mg/dL POC Glucose (mg/dL) 119 H (75-99) mg/dL Albumin 3.2 L (3.5-5.0) g/dL Microbiology - Last 24 Hours (Table) 10/28/17 21:05 Blood Culture - Preliminary Blood No Growth after 72 hours Assessment and Plan Assessment: Assessment #1 A. fib with RVR. The patient does have history of paroxysmal atrial fibrillation #2 marginly a low blood pressure with a systolic pressure of 100 mmHg #3 cardiomyopathy and known if is ischemic or nonischemic with an EF of 40-45% #4 mild aortic stenosis #5 mildly abnormal cardiac enzymes Plan #1 increase the dose of metoprolol to 50 mg by mouth twice a day #2 continue the IV Lasix for additional 24 hours #3 follow-up with the patient. Thank you for allowing us participate in his care and we will continue following up with the patient
--- NOTE | 2017-11-01 12:25 | P.PN ---
Subjective Progress Note Date: 11/01/17 This is an 86-year-old male who presented to the emergency room with palpitations and feeling short of breath. Patient has a known history of atrial fibrillation but not on any anticoagulation due to high risk of falls. Other medical history includes prostate cancer, hyperlipidemia, hypertension, sleep apnea and IBS. EKG on admission showed A. fib with RVR. Cardiology was consulted and patient was placed on Cardizem drip. Chest x-ray completed in ER showing correlation for CHF exacerbation as there is cardiomegaly with suspected new central vascular congestion and persistent small bilateral pleural effusions on back on a chronic emphysematous changes. Patient was given 40 mg IV Lasix in the emergency room. Troponin levels drawn 0.043, 0.055 and 0.067, cardiology following. Per cardiology Cardizem drip has been DC'd and patient started on amiodarone bolus and drip. White blood cell on admission 15.8. Rocephin has been ordered for antibiotic. Urine and blood cultures have been ordered along with two-view chest x-ray. Patient denies chest pain at this time and states shortness of breath has improved. Patient denies any urinary symptoms. Patient denies nausea vomiting or diarrhea. 10/30/2017 patient remains atrial fibrillation noted on telemetry heart rate is controlled. Cardiology has discontinued the amiodarone drip. And started him on oral amiodarone. Cardiology recommending to monitor patient for another 24 hours. He denies any chest pain or shortness of breath. Denies any nausea or vomiting. Denies any bowel movement changes or urinary symptoms. 10/31/2017 patient has no new complaints. He remains on atrial fibrillation on hospital monitor. Heart rate mostly trolled. He does have a few heart rates around 108. Patient hypotensive this morning with a BP of 90/56. Hydrochlorothiazide discontinued yesterday due to sodium level 131. White count has decreased from 15.8 14.9. Awaiting pulmonary consult. Patient denies any chest pain shortness of breath or cough. Denies any nausea or vomiting. Reports having bowel movements. Denies any difficulty urinating.. Patient is down to 2 L oxygen satting at 92% On 11/01/2017 patient is alert and oriented 3 he is complaining of generalized weakness otherwise denies any specific complaints is no chest pain or shortness of breath no dizziness no headache no fever or chills no cough no nausea or vomiting no abdominal pain and no urinary symptoms Objective - Vital Signs Vital signs: Vital Signs Temp 97.4 F L 11/01/17 08:00 Pulse 107 H 11/01/17 08:00 Resp 18 11/01/17 08:00 BP 111/64 11/01/17 09:45 Pulse Ox 93 L 11/01/17 08:00 Intake & Output 10/31/17 11/01/17 11/01/17 18:59 06:59 18:59 Intake Total 472 120 240 Output Total 125 Balance 472 -5 240 Weight 103.5 kg Intake: Oral 472 120 240 Output: Urine 125 Other: Voiding Method Urinal Urinal Incontinent Incontinent # Voids 2 3 - Exam Head normocephalic and atraumatic Neck supple no JVD no goiter Lungs diminished bilaterally with few scattered rhonchi Heart irregular rhythm. A. fib on monitor Abdomen is soft nontender nondistended positive bowel sounds no hepatosplenomegaly Extremities no edema Neuro alert and orientated to 3 - Labs CBC & Chem 7: 11/01/17 06:05 11/01/17 06:05 Labs: Abnormal Lab Results - Last 24 Hours (Table) 10/31/17 11/01/17 11/01/17 Range/Units 21:04 06:05 06:05 WBC 14.4 H (3.8-10.6) k/uL Plt Count 505 H (150-450) k/uL Neutrophils # 10.5 H (1.3-7.7) k/uL Monocytes # 1.6 H (0-1.0) k/uL Sodium 134 L (137-145) mmol/L Potassium 5.2 H (3.5-5.1) mmol/L Chloride 96 L (98-107) mmol/L BUN 31 H (9-20) mg/dL Glucose 117 H (74-99) mg/dL POC Glucose (mg/dL) 119 H (75-99) mg/dL Albumin 3.2 L (3.5-5.0) g/dL Microbiology - Last 24 Hours (Table) 10/28/17 21:05 Blood Culture - Preliminary Blood No Growth after 72 hours Assessment and Plan Plan: 1. Atrial fibrillation with rapid ventricular response: Patient does have history of paroxysmal atrial fibrillation. Was not on coagulation due to high risk of fall. EKG completed emergency room showing A. fib with RVR. Cardiology is following. Cardizem drip has been D/C. Amiodarone drip discontinued per cardiology. Patient has been placed on oral amiodarone. Cardiology following 2. Elevated troponin. Troponin level 0.043, 0.055 and 0.067. Evaluated by cardiology 3. Leukocytosis. White count history down from 15.8-14.9. Concerns about possible developing pneumonia. Patient remains on Rocephin. Urine culture and blood culture negative. Await pulmonary evaluation. We'll repeat chest x-ray. 4. History of prostate cancer 5. History of hyperlipidemia. Continue statin 6. History of essential hypertension. Patient currently on Coreg and hydrochlorothiazide 7. History of cardiomyopathy and unknown if it is ischemic or nonischemic. EF of 40-45% 8. Hyponatremia: Sodium 131. Continue to monitor. Hydrochlorothiazide discontinued yesterday 9. Possible acute systolic CHF exacerbation: BMP 2400. Patient did receive a dose of IV Lasix in the ER. Repeat chest x-ray today DVT prophylaxis Lovenox and GI prophylaxis Protonix
--- NOTE | 2017-11-01 15:09 | P.PN ---
Subjective Progress Note Date: 11/01/17 Principal diagnosis: Acute exacerbation of chronic systolic congestive heart failure secondary to atrial fibrillation with rapid ventricular response. 86-year-old male patient, obese, with known history of obstructive sleep apnea, presented to the hospital because of atrial fibrillation with rapid vascular response. Note that he has mild CHF with a previous echocardiogram showing an ejection fraction of 40-45% based on echocardiogram from July 2017. The patient denies having any chest pain. He denied having any shortness of breath. His chest x-ray was consistent with CHF and early pulmonary edema. Initially his heart rate was in the 120-140 range. The patient was started on a Cardizem drip and the rate was effectively control and he was started also on Coreg 12.5 mg by mouth twice a day. He was diuresed and a subsequent chest x- ray shows improvement in the volume status he is currently free of any chest pain. No cough or sputum production. No chest tightness or wheezing. His BiPAP is at the bedside and the patient has severe obstructive sleep apnea and currently is on a BiPAP pressure 15/11 cm of water and his AHI was in treatment is less than 5. He is using his Simplus fullface mask however this needs to be changed knowing that the patient is having some leaks around the mask. No major edema in lower extremities. No altered mentation. No other complaints otherwise for now. The patient is seen again today 11/01/2017 in follow-up on the selective care unit. He is currently sitting up in a chair at the bedside. Awake and alert in no acute distress and breathing easier today as compared to yesterday. He did utilize his home CPAP machine last night. Currently he is on 2 L/m per nasal cannula maintaining good O2 saturations in the 90s. He's been afebrile. Slightly tachycardic. Initiated on amiodarone 400 mg twice a day. He is anticoagulated with Eliquis. He remains on diuretics in the form of Lasix 40 mg IV daily. White count 14.4. Creatinine 1.09. Objective - Vital Signs Vital signs: Vital Signs Temp 97.4 F L 11/01/17 08:00 Pulse 107 H 11/01/17 08:00 Resp 18 11/01/17 08:00 BP 111/64 11/01/17 09:45 Pulse Ox 93 L 11/01/17 08:00 Intake & Output 10/31/17 11/01/17 11/01/17 18:59 06:59 18:59 Intake Total 472 120 240 Output Total 125 Balance 472 -5 240 Weight 103.5 kg Intake: Oral 472 120 240 Output: Urine 125 Other: Voiding Method Urinal Urinal Incontinent Incontinent # Voids 2 3 - Exam Obese, comfortable likely distress. Head exam was generally normal. There was no scleral icterus or corneal arcus. Mucous membranes were moist. Neck is short and supple and the patient is a crowding of the posterior oropharynx with a Mallampati class IV. No goiter or neck masses. Lungs sounds are diminished bilaterally along with some scattered expiratory wheezes heard throughout the lung romero. There is diminished breath sounds especially lung bases bilaterally. Heart sounds are regular, distant, rate is controlled and the patient has no significant murmurs appreciated. Abdominal exam revealed normal bowel sounds. The abdomen was soft, non-tender, and without masses, organomegaly, or appreciable enlargement of the abdominal aorta. Examination of the extremities revealed easily palpable radial, femoral and pedal pulses. There was no cyanosis, clubbing or edema. Examination of the skin revealed no evidence of significant rashes, suspicious appearing nevi or other concerning lesions. Neurologic awake and alert and there is no focal neurological deficits. - Labs CBC & Chem 7: 11/01/17 06:05 11/01/17 06:05 Labs: Abnormal Lab Results - Last 24 Hours (Table) 10/31/17 11/01/17 11/01/17 Range/Units 21:04 06:05 06:05 WBC 14.4 H (3.8-10.6) k/uL Plt Count 505 H (150-450) k/uL Neutrophils # 10.5 H (1.3-7.7) k/uL Monocytes # 1.6 H (0-1.0) k/uL Sodium 134 L (137-145) mmol/L Potassium 5.2 H (3.5-5.1) mmol/L Chloride 96 L (98-107) mmol/L BUN 31 H (9-20) mg/dL Glucose 117 H (74-99) mg/dL POC Glucose (mg/dL) 119 H (75-99) mg/dL Albumin 3.2 L (3.5-5.0) g/dL Microbiology - Last 24 Hours (Table) 07/10/18 21:05 Blood Culture - Preliminary Blood No Growth after 72 hours Assessment and Plan Assessment: Assessment 1 acute hypoxic respiratory failure secondary to acute CHF, with mild systolic dysfunction and an ejection fraction of 40-45%. The patient CHF decompensated because of atrial fibrillation and rapid ventricular response. 2 A. fib relation with rapid ventricular response, rate is controlled for now 3 COPD 4 mild aortic stenosis 5 prostate cancer 6 hypertension 7 hyperlipidemia 8 obstructive sleep apnea maintained on a BiPAP at a pressure 15/11 cm of water. 9 degenerative arthritis with bilateral hip replacement Plan The patient was seen and evaluated by Dr. Esteves. He is improved today as compared to yesterday. We'll continue with his current therapy including IV diuretics, amiodarone for rate control, anticoagulation with Eliquis. Continue DuoNeb's, Symbicort, empiric antibiotics. We'll increase his activity as tolerated. We'll continue to follow. I, the cosigning physician, performed a history & physical examination of the patient. Lungs sounds with crackles in the bilateral posterior bases. Diminished. Maintaining good O2 saturations in the 90s on 2 L/m per nasal cannula.. I discussed the assessment and plan of care with my nurse practitioner, Aisha Craig. I attest to the above note as dictated by her.
[2017-11-01] MEDS: TAMSULOSIN 0.4 MG CAP.ER.24H PO SCH (22:00)
[2017-11-01] MEDS: METOPROLOL TARTRATE 50 MG TAB PO SCH (22:00)
[2017-11-01] MEDS: ATORVASTATIN 40 MG TAB PO SCH (22:00)
[2017-11-01] MEDS: SERTRALINE 50 MG TAB PO SCH (22:01)
[2017-11-01] MEDS: ZOLPIDEM 5 MG TAB PO SCH (22:08)
[2017-11-02 07:46] LABS: Basophils # (A) 0.1 k/uL (0-0.2); Basophils % (A) 0 %; Eosinophils # (A) 0.7 k/uL (0-0.7); Eosinophils % (A) 5 %; HCT 49.2 % (39.0-53.0); HGB 16.5 gm/dL (13.0-17.5); Lymphocytes # (A) 1.2 k/uL (1.0-4.8); Lymphocytes % (A) 8 %; MCH 29.4 pg (25.0-35.0); MCHC 33.5 g/dL (31.0-37.0); MCV 87.8 fL (80.0-100.0); Mean Platelet Volume 7.6; Monocytes # (A) 1.7 k/uL (0-1.0); Monocytes % (A) 12 %; Neutrophils # (A) 10.9 k/uL (1.3-7.7); Neutrophils % (A) 73 %; Platelet Count 514 k/uL (150-450); RBC 5.61 m/uL (4.30-5.90); RDW 14.1 % (11.5-15.5); WBC 14.9 k/uL (3.8-10.6)
[2017-11-02 07:48] LABS: Calcium 8.5 mg/dL (8.4-10.2); Potassium 5.2 mmol/L (3.5-5.1); Total Bilirubin 0.7 mg/dL (0.2-1.3); Total Protein 5.9 g/dL (6.3-8.2)
[2017-11-02] MEDS: PANTOPRAZOLE 40 MG TABLET PO SCH (08:18)
[2017-11-02] MEDS: METOPROLOL TARTRATE 50 MG TAB PO SCH ×2 (08:18→21:02)
[2017-11-02] MEDS: VIT A,C & E-LUTEIN-MINERALS 1 EACH TAB PO SCH ×2 (08:18→21:03)
[2017-11-02] MEDS: APIXABAN 2.5 MG TABLET PO SCH ×2 (08:19→21:03)
[2017-11-02] MEDS: POLYETHYLENE GLYCOL 3350 17 GM POWD.PACK PO SCH (08:19)
[2017-11-02] MEDS: ASPIRIN 325 MG TAB PO SCH (08:19)
[2017-11-02] MEDS: AMIODARONE 200 MG TAB PO SCH ×2 (08:19→21:03)
[2017-11-02] MEDS: FINASTERIDE 5 MG TAB PO SCH (08:19)
[2017-11-02] MEDS: CLIDINIUM-chlordiazePOXIDE (2.5-5 MG) CAP PO SCH (08:19)
[2017-11-02] MEDS: FUROSEMIDE 10 MG/ML 4 ML VIAL IV SCH (08:19)
[2017-11-02] MEDS: GABAPENTIN 100 MG CAP PO SCH ×2 (08:19→21:03)
[2017-11-02] MEDS: cefTRIAXone IN SWFI 1,000 MG/10 ML SYRINGE IVP SCH (08:19)
[2017-11-02] MEDS: SYMBICORT 160-4.5 MCG INHALER INHALATION SCH ×2 (08:45→19:39)
--- NOTE | 2017-11-02 09:59 | XR ---
EXAMINATION TYPE: XR chest 1V DATE OF EXAM: 11/02/2017 HISTORY: dyspnea. REFERENCE: Previous study dated 10/31/2017. FINDINGS: The study is moderately rotated. The heart is not enlarged. There is mild vascular congesti on and subtle interstitial change. There is blunting of the left CP angle. I could not exclude a smal l effusion. There is some left basilar atelectasis. IMPRESSION: 1. FINDINGS MOST CONSISTENT WITH MILD HEART FAILURE. 2. LEFT BASILAR ATELECTASIS. 3. SMALL LEFT EFFUSION.
--- NOTE | 2017-11-02 10:26 | P.PN ---
Subjective Progress Note Date: 11/02/17 86-year-old male patient, obese, with known history of obstructive sleep apnea, presented to the hospital because of atrial fibrillation with rapid vascular response. Note that he has mild CHF with a previous echocardiogram showing an ejection fraction of 40-45% based on echocardiogram from July 2017. The patient denies having any chest pain. He denied having any shortness of breath. His chest x-ray was consistent with CHF and early pulmonary edema. Initially his heart rate was in the 120-140 range. The patient was started on a Cardizem drip and the rate was effectively control and he was started also on Coreg 12.5 mg by mouth twice a day. He was diuresed and a subsequent chest x- ray shows improvement in the volume status he is currently free of any chest pain. No cough or sputum production. No chest tightness or wheezing. His BiPAP is at the bedside and the patient has severe obstructive sleep apnea and currently is on a BiPAP pressure 15/11 cm of water and his AHI was in treatment is less than 5. He is using his Simplus fullface mask however this needs to be changed knowing that the patient is having some leaks around the mask. No major edema in lower extremities. No altered mentation. No other complaints otherwise for now. The patient is seen again today 11/01/2017 in follow-up on the selective care unit. He is currently sitting up in a chair at the bedside. Awake and alert in no acute distress and breathing easier today as compared to yesterday. He did utilize his home CPAP machine last night. Currently he is on 2 L/m per nasal cannula maintaining good O2 saturations in the 90s. He's been afebrile. Slightly tachycardic. Initiated on amiodarone 400 mg twice a day. He is anticoagulated with Eliquis. He remains on diuretics in the form of Lasix 40 mg IV daily. White count 14.4. Creatinine 1.09. On 11/02/2017, the patient is resting comfortably in bed and he is hemodynamically stable and he has no specific complaints. Renal function is stable. White cell count is at 14.9 which is stable and unchanged. No signs of any septicemia. He is afebrile and is pulse oxing 94-95% liters about 2 by nasal cannula. He remains on IV Rocephin. He remains on amiodarone 400 mg by mouth twice a day in addition to metoprolol 53 g by mouth twice a day for rate control. The patient is also on Lasix 40 mg IV every 24 hours. Repeat chest x- ray shows mild CHF and left basilar atelectasis and small left-sided pleural effusion. Objective - Vital Signs Vital signs: Vital Signs Temp 97.6 F 11/02/17 08:00 Pulse 104 H 11/02/17 08:00 Resp 18 11/02/17 08:00 BP 123/77 11/02/17 08:00 Pulse Ox 94 L 11/02/17 08:00 Intake & Output 11/01/17 11/02/17 11/02/17 18:59 06:59 18:59 Intake Total 720 420 Output Total 200 Balance 720 -200 420 Weight 101.4 kg Intake: Oral 720 420 Output: Urine 200 Other: Voiding Method Urinal Urinal Urinal Incontinent Incontinent Incontinent # Voids 3 2 - Exam Obese, comfortable likely distress. Head exam was generally normal. There was no scleral icterus or corneal arcus. Mucous membranes were moist. Neck is short and supple and the patient is a crowding of the posterior oropharynx with a Mallampati class IV. No goiter or neck masses. Lungs sounds are diminished bilaterally along with some scattered expiratory wheezes heard throughout the lung romero. There is diminished breath sounds especially lung bases bilaterally. Heart sounds are regular, distant, rate is controlled and the patient has no significant murmurs appreciated. Abdominal exam revealed normal bowel sounds. The abdomen was soft, non-tender, and without masses, organomegaly, or appreciable enlargement of the abdominal aorta. Examination of the extremities revealed easily palpable radial, femoral and pedal pulses. There was no cyanosis, clubbing or edema. Examination of the skin revealed no evidence of significant rashes, suspicious appearing nevi or other concerning lesions. Neurologic awake and alert and there is no focal neurological deficits. - Labs CBC & Chem 7: 11/02/17 06:50 11/02/17 06:50 Labs: Abnormal Lab Results - Last 24 Hours (Table) 11/02/17 11/02/17 Range/Units 06:50 06:50 WBC 14.9 H (3.8-10.6) k/uL Plt Count 514 H (150-450) k/uL Neutrophils # 10.9 H (1.3-7.7) k/uL Monocytes # 1.7 H (0-1.0) k/uL Sodium 133 L (137-145) mmol/L Potassium 5.2 H (3.5-5.1) mmol/L BUN 29 H (9-20) mg/dL Glucose 118 H (74-99) mg/dL Total Protein 5.9 L (6.3-8.2) g/dL Albumin 3.0 L (3.5-5.0) g/dL Microbiology - Last 24 Hours (Table) 10/28/17 21:05 Blood Culture - Preliminary Blood No Growth after 96 hours Assessment and Plan Plan: Assessment 1 acute CHF, with mild systolic dysfunction and an ejection fraction of 40-45%. The patient CHF decompensated because of atrial fibrillation and rapid ventricular response. The patient is improving and the patient is less short of breath with a combination of medication to control the rate and the patient is also on diuretics with IV Lasix. Follow-up chest x-ray shows mild CHF and mild small left-sided pleural effusion. 2 A. fib relation with rapid ventricular response, rate is controlled for now 3 COPD 4 mild aortic stenosis 5 prostate cancer 6 hypertension 7 hyperlipidemia 8 obstructive sleep apnea maintained on a BiPAP at a pressure 15/11 cm of water. 9 degenerative arthritis with bilateral hip replacement Plan Continue same treatment. Clinically improving. Continue diuretics. Rate is controlled. Monitor white blood count. No signs of any septicemia. No signs of any infection. IV Rocephin as an empiric antibiotic coverage. We'll continue to follow.
--- NOTE | 2017-11-02 13:24 | P.PN ---
Subjective Progress Note Date: 11/02/17 This is an 86-year-old male who presented to the emergency room with palpitations and feeling short of breath. Patient has a known history of atrial fibrillation but not on any anticoagulation due to high risk of falls. Other medical history includes prostate cancer, hyperlipidemia, hypertension, sleep apnea and IBS. EKG on admission showed A. fib with RVR. Cardiology was consulted and patient was placed on Cardizem drip. Chest x-ray completed in ER showing correlation for CHF exacerbation as there is cardiomegaly with suspected new central vascular congestion and persistent small bilateral pleural effusions on back on a chronic emphysematous changes. Patient was given 40 mg IV Lasix in the emergency room. Troponin levels drawn 0.043, 0.055 and 0.067, cardiology following. Per cardiology Cardizem drip has been DC'd and patient started on amiodarone bolus and drip. White blood cell on admission 15.8. Rocephin has been ordered for antibiotic. Urine and blood cultures have been ordered along with two-view chest x-ray. Patient denies chest pain at this time and states shortness of breath has improved. Patient denies any urinary symptoms. Patient denies nausea vomiting or diarrhea. 10/30/2017 patient remains atrial fibrillation noted on telemetry heart rate is controlled. Cardiology has discontinued the amiodarone drip. And started him on oral amiodarone. Cardiology recommending to monitor patient for another 24 hours. He denies any chest pain or shortness of breath. Denies any nausea or vomiting. Denies any bowel movement changes or urinary symptoms. 10/31/2017 patient has no new complaints. He remains on atrial fibrillation on monitoring manager. Heart rate mostly trolled. He does have a few heart rates around 108. Patient hypotensive this morning with a BP of 90/56. Hydrochlorothiazide discontinued yesterday due to sodium level 131. White count has decreased from 15.8 14.9. Awaiting pulmonary consult. Patient denies any chest pain shortness of breath or cough. Denies any nausea or vomiting. Reports having bowel movements. Denies any difficulty urinating.. Patient is down to 2 L oxygen satting at 92% On 11/01/2017 patient is alert and oriented 3 he is complaining of generalized weakness otherwise denies any specific complaints is no chest pain or shortness of breath no dizziness no headache no fever or chills no cough no nausea or vomiting no abdominal pain and no urinary symptoms On 11/02/2017 patient is alert and oriented 3 in no apparent distress complaining of generalized weakness complaining of frequency was urination otherwise denies any complaints there is no fever or chills no headache no dizziness no chest pain no shortness of breath no cough no nausea or vomiting no abdominal pain he is complaining of frequency with urination but no urgency and no urination. White blood count remains elevated at 14.9 there is no clear source of infection. Objective - Vital Signs Vital signs: Vital Signs Temp 97.6 F 11/02/17 08:00 Pulse 104 H 11/02/17 08:00 Resp 18 11/02/17 08:00 BP 123/77 11/02/17 08:00 Pulse Ox 94 L 11/02/17 08:00 Intake & Output 11/01/17 11/02/17 11/02/17 18:59 06:59 18:59 Intake Total 720 420 Output Total 200 Balance 720 -200 420 Weight 101.4 kg Intake: Oral 720 420 Output: Urine 200 Other: Voiding Method Urinal Urinal Urinal Incontinent Incontinent Incontinent # Voids 3 2 - Exam Head normocephalic and atraumatic Neck supple no JVD no goiter Lungs diminished bilaterally with few scattered rhonchi Heart irregular rhythm. A. fib on monitor Abdomen is soft nontender nondistended positive bowel sounds no hepatosplenomegaly Extremities no edema Neuro alert and orientated to 3 - Labs CBC & Chem 7: 11/02/17 06:50 11/02/17 06:50 Labs: Abnormal Lab Results - Last 24 Hours (Table) 11/02/17 11/02/17 Range/Units 06:50 06:50 WBC 14.9 H (3.8-10.6) k/uL Plt Count 514 H (150-450) k/uL Neutrophils # 10.9 H (1.3-7.7) k/uL Monocytes # 1.7 H (0-1.0) k/uL Sodium 133 L (137-145) mmol/L Potassium 5.2 H (3.5-5.1) mmol/L BUN 29 H (9-20) mg/dL Glucose 118 H (74-99) mg/dL Total Protein 5.9 L (6.3-8.2) g/dL Albumin 3.0 L (3.5-5.0) g/dL Microbiology - Last 24 Hours (Table) 10/28/17 21:05 Blood Culture - Preliminary Blood No Growth after 96 hours Assessment and Plan Plan: 1. Atrial fibrillation with rapid ventricular response: Patient does have history of paroxysmal atrial fibrillation. Was not on coagulation due to high risk of fall. EKG completed emergency room showing A. fib with RVR. Cardiology is following. Cardizem drip has been D/C. Amiodarone drip discontinued per cardiology. Patient has been placed on oral amiodarone. Cardiology following 2. Elevated troponin. Troponin level 0.043, 0.055 and 0.067. Evaluated by cardiology 3. Leukocytosis. White count history down from 15.8-14.9. Concerns about possible developing pneumonia. Patient remains on Rocephin. Urine culture and blood culture negative. Will repeat urinalysis 4. History of prostate cancer 5. History of hyperlipidemia. Continue statin 6. History of essential hypertension. Patient currently on Coreg and hydrochlorothiazide 7. History of cardiomyopathy and unknown if it is ischemic or nonischemic. EF of 40-45% 8. Hyponatremia: Sodium 131. Continue to monitor. Hydrochlorothiazide discontinued yesterday 9. Possible acute systolic CHF exacerbation: BMP 2400. Patient did receive a dose of IV Lasix in the ER. Repeat chest x-ray today DVT prophylaxis Lovenox and GI prophylaxis Protonix
--- NOTE | 2017-11-02 14:13 | P.PN ---
Subjective Progress Note Date: 11/02/17 Principal diagnosis: Chronic atrial fibrillation This is a pleasant 86-year-old gentleman with a past medical history significant for paroxysmal atrial fibrillation, hypertension, dyslipidemia, and mild aortic stenosis as well as mild cardiomyopathy with an ejection fraction between 40-45% based on echocardiogram was performed in July 2017 presented to the hospital complaining of heart racing and fluttering. The patient did not have any symptoms of chest pain or chest discomfort, no shortness of breath, no dizziness or lightheadedness and no syncope. When he presented to the hospital he was found to be in atrial fibrillation with RVR with a heart rate around 120 bpm. Because of that the patient was placed in the hospital and he was started on Cardizem and drip. Beside that the patient was receiving Coreg 12.5 mg by mouth twice a day as an outpatient and that was continued. The patient is not on any oral anticoagulation for unknown reason probably because of his age as well as high risk of falling and bleeding. The cardiac enzymes were checked and came in to be slightly abnormal. The EKG showed atrial fibrillation with RVR and nonspecific changes without any ischemic changes. On follow-up with the patient today, overall he is looking better. He is feeling better. The shortness of breath is definitely better. He continues to be in A. fib with controlled heart rate. The blood pressure is not low any more after he was switched from Coreg to metoprolol. He continues to be on Lasix IV and I will continue that for additional 24 hours. We'll continue monitoring the kidney function and electrolytes. Possible discharge in to an extended care facility tomorrow morning. Objective - Vital Signs Vital signs: Vital Signs Temp 97.6 F 11/02/17 08:00 Pulse 104 H 11/02/17 08:00 Resp 18 11/02/17 08:00 BP 123/77 11/02/17 08:00 Pulse Ox 94 L 11/02/17 08:00 Intake & Output 11/01/17 11/02/17 11/02/17 18:59 06:59 18:59 Intake Total 720 420 Output Total 200 Balance 720 -200 420 Weight 101.4 kg Intake: Oral 720 420 Output: Urine 200 Other: Voiding Method Urinal Urinal Urinal Incontinent Incontinent Incontinent # Voids 3 2 - Constitutional General appearance: Present: no acute distress - Respiratory Respiratory: bilateral: diminished - Cardiovascular Rhythm: irregularly irregular Heart sounds: normal: S1, S2 - Labs CBC & Chem 7: 11/02/17 06:50 11/02/17 06:50 Labs: Abnormal Lab Results - Last 24 Hours (Table) 11/02/17 11/02/17 Range/Units 06:50 06:50 WBC 14.9 H (3.8-10.6) k/uL Plt Count 514 H (150-450) k/uL Neutrophils # 10.9 H (1.3-7.7) k/uL Monocytes # 1.7 H (0-1.0) k/uL Sodium 133 L (137-145) mmol/L Potassium 5.2 H (3.5-5.1) mmol/L BUN 29 H (9-20) mg/dL Glucose 118 H (74-99) mg/dL Total Protein 5.9 L (6.3-8.2) g/dL Albumin 3.0 L (3.5-5.0) g/dL Microbiology - Last 24 Hours (Table) 10/28/17 21:05 Blood Culture - Preliminary Blood No Growth after 96 hours Assessment and Plan Assessment: Assessment #1 A. fib with RVR. The patient does have history of paroxysmal atrial fibrillation #2 marginly a low blood pressure with a systolic pressure of 100 mmHg #3 cardiomyopathy and known if is ischemic or nonischemic with an EF of 40-45% #4 mild aortic stenosis #5 mildly abnormal cardiac enzymes Plan #1 continue the current dose of metoprolol #2 continue the IV Lasix for additional 24 hours #3 follow-up with the patient. Thank you for allowing us participate in his care and we will continue following up with the patient
[2017-11-02 19:55] LABS: Amorphous Sediment,Urine Rare /hpf; Appearance,Urine Clear (Clear); Bilirubin,Urine Negative (Negative); Blood,Urine Negative (Negative); Color,Urine Yellow; Glucose,Urine (UA) Negative (Negative); Ketones,Urine Negative (Negative); Leukocyte Esterase,Urine Negative (Negative); Mucus,Urine Rare /hpf; Nitrite,Urine Negative (Negative); Protein,Urine 1+ (Negative); Squamous Epithelial Cell,Urine <1 /hpf (0-4); Urobilinogen,Urine <2.0 mg/dL (<2.0); WBC,Urine 2 /hpf (0-5)
[2017-11-02] MEDS: TAMSULOSIN 0.4 MG CAP.ER.24H PO SCH (21:03)
[2017-11-02] MEDS: ATORVASTATIN 40 MG TAB PO SCH (21:03)
[2017-11-02] MEDS: ZOLPIDEM 5 MG TAB PO SCH (21:03)
[2017-11-02] MEDS: SERTRALINE 50 MG TAB PO SCH (21:03)
[2017-11-02] MEDS: LORazepam 2 MG/ML INJ IV PRN (21:03)
[2017-11-03] MEDS: LORazepam 2 MG/ML INJ IV PRN (00:44)
[2017-11-03] MEDS: PANTOPRAZOLE 40 MG TABLET PO SCH (06:16)
[2017-11-03 07:30] LABS: Basophils # (A) 0.1 k/uL (0-0.2); Basophils % (A) 1 %; Eosinophils # (A) 0.8 k/uL (0-0.7); Eosinophils % (A) 5 %; HGB 15.6 gm/dL (13.0-17.5); Lymphocytes # (A) 1.4 k/uL (1.0-4.8); Lymphocytes % (A) 9 %; MCH 27.3 pg (25.0-35.0); MCHC 31.3 g/dL (31.0-37.0); MCV 87.5 fL (80.0-100.0); Mean Platelet Volume 7.7; Monocytes # (A) 1.8 k/uL (0-1.0); Monocytes % (A) 12 %; Neutrophils # (A) 11.1 k/uL (1.3-7.7); Neutrophils % (A) 71 %; Platelet Count 545 k/uL (150-450); RBC 5.72 m/uL (4.30-5.90); RDW 14.1 % (11.5-15.5); WBC 15.5 k/uL (3.8-10.6)
[2017-11-03] MEDS: APIXABAN 2.5 MG TABLET PO SCH (08:13)
[2017-11-03] MEDS: AMIODARONE 200 MG TAB PO SCH (08:13)
[2017-11-03] MEDS: FINASTERIDE 5 MG TAB PO SCH (08:14)
[2017-11-03] MEDS: VIT A,C & E-LUTEIN-MINERALS 1 EACH TAB PO SCH (08:14)
[2017-11-03] MEDS: METOPROLOL TARTRATE 50 MG TAB PO SCH (08:14)
[2017-11-03] MEDS: POLYETHYLENE GLYCOL 3350 17 GM POWD.PACK PO SCH (08:14)
[2017-11-03] MEDS: GABAPENTIN 100 MG CAP PO SCH (08:14)
[2017-11-03] MEDS: FUROSEMIDE 10 MG/ML 4 ML VIAL IV SCH (08:14)
[2017-11-03] MEDS: CLIDINIUM-chlordiazePOXIDE (2.5-5 MG) CAP PO SCH (08:26)
[2017-11-03] MEDS: cefTRIAXone IN SWFI 1,000 MG/10 ML SYRINGE IVP SCH (08:26)
[2017-11-03] MEDS ORDERED: ERGOCALCIFEROL 50,000 UNIT CAP PO SCH (09:00)
[2017-11-03] MEDS ORDERED: ASPIRIN 81 MG PO SCH (09:00)
[2017-11-03] MEDS: SYMBICORT 160-4.5 MCG INHALER INHALATION SCH (09:05)
[2017-11-03 09:50] LABS: Calcium 8.5 mg/dL (8.4-10.2); Potassium 5.3 mmol/L (3.5-5.1); Total Bilirubin 0.4 mg/dL (0.2-1.3)
--- NOTE | 2017-11-03 10:04 | P.PN ---
Subjective Progress Note Date: 11/03/17 Principal diagnosis: Chronic atrial fibrillation This is a pleasant 86-year-old gentleman with a past medical history significant for paroxysmal atrial fibrillation, hypertension, dyslipidemia, and mild aortic stenosis as well as mild cardiomyopathy with an ejection fraction between 40-45% based on echocardiogram was performed in July 2017 presented to the hospital complaining of heart racing and fluttering. The patient did not have any symptoms of chest pain or chest discomfort, no shortness of breath, no dizziness or lightheadedness and no syncope. When he presented to the hospital he was found to be in atrial fibrillation with RVR with a heart rate around 120 bpm. Because of that the patient was placed in the hospital and he was started on Cardizem and drip. Beside that the patient was receiving Coreg 12.5 mg by mouth twice a day as an outpatient and that was continued. The patient is not on any oral anticoagulation for unknown reason probably because of his age as well as high risk of falling and bleeding. The cardiac enzymes were checked and came in to be slightly abnormal. The EKG showed atrial fibrillation with RVR and nonspecific changes without any ischemic changes. On follow-up with the patient today, overall he is looking better. He is feeling better. The shortness of breath is definitely better. He continues to be in A. fib with controlled heart rate. The blood pressure is not low any more after he was switched from Coreg to metoprolol. I am going to DC the Lasix IV and start the patient on Lasix by mouth. From a cardiac vascular standpoint of view, the patient can be discharged into an extended-care facility. Objective - Vital Signs Vital signs: Vital Signs Temp 98.6 F 11/03/17 03:55 Pulse 83 11/03/17 03:55 Resp 20 11/03/17 03:55 BP 136/84 11/03/17 03:55 Pulse Ox 95 11/03/17 03:55 Intake & Output 11/02/17 11/03/17 11/03/17 18:59 06:59 18:59 Intake Total 900 Output Total 500 400 Balance 400 -400 Weight 93.5 kg Intake: Oral 900 Output: Urine 500 400 Other: Voiding Method Urinal Urinal Incontinent Incontinent # Voids 2 - Constitutional General appearance: Present: no acute distress - Respiratory Respiratory: bilateral: CTA - Cardiovascular Rhythm: irregularly irregular Heart sounds: normal: S1, S2 - Labs CBC & Chem 7: 11/03/17 05:50 11/03/17 05:50 Labs: Abnormal Lab Results - Last 24 Hours (Table) 11/02/17 11/03/17 11/03/17 Range/Units 19:05 05:50 05:50 WBC 15.5 H (3.8-10.6) k/uL Plt Count 545 H (150-450) k/uL Neutrophils # 11.1 H (1.3-7.7) k/uL Monocytes # 1.8 H (0-1.0) k/uL Eosinophils # 0.8 H (0-0.7) k/uL Sodium 134 L (137-145) mmol/L Potassium 5.3 H (3.5-5.1) mmol/L Chloride 96 L (98-107) mmol/L BUN 29 H (9-20) mg/dL Glucose 110 H (74-99) mg/dL Total Protein 6.0 L (6.3-8.2) g/dL Albumin 3.0 L (3.5-5.0) g/dL Urine Protein 1+ H (Negative) Amorphous Sediment Rare H (None) /hpf Urine Mucus Rare H (None) /hpf Microbiology - Last 24 Hours (Table) 10/28/17 21:05 Blood Culture - Preliminary Blood No Growth after 120 hours Assessment and Plan Assessment: Assessment #1 A. fib with RVR. The patient does have history of paroxysmal atrial fibrillation #2 marginly a low blood pressure with a systolic pressure of 100 mmHg #3 cardiomyopathy and known if is ischemic or nonischemic with an EF of 40-45% #4 mild aortic stenosis #5 mildly abnormal cardiac enzymes Plan #1 continue the current dose of metoprolol #2 switch the patient to Lasix by mouth #3 follow-up with the patient. Thank you for allowing us participate in his care and we will continue following up with the patient
[2017-11-03 10:56] VITALS: TEMP 97
[2017-11-03] MEDS ORDERED: SODIUM POLYSTYRENE SULFONATE 15 GM/60 ML BOTTLE PO STA (10:57)
--- NOTE | 2017-11-03 13:46 | P.PN ---
Subjective Progress Note Date: 11/03/17 Principal diagnosis: Acute CHF, with mild systolic dysfunction and ejection fraction of 40-45%, A. fib with RVR 86-year-old male patient, obese, with known history of obstructive sleep apnea, presented to the hospital because of atrial fibrillation with rapid vascular response. Note that he has mild CHF with a previous echocardiogram showing an ejection fraction of 40-45% based on echocardiogram from July 2017. The patient denies having any chest pain. He denied having any shortness of breath. His chest x-ray was consistent with CHF and early pulmonary edema. Initially his heart rate was in the 120-140 range. The patient was started on a Cardizem drip and the rate was effectively control and he was started also on Coreg 12.5 mg by mouth twice a day. He was diuresed and a subsequent chest x- ray shows improvement in the volume status he is currently free of any chest pain. No cough or sputum production. No chest tightness or wheezing. His BiPAP is at the bedside and the patient has severe obstructive sleep apnea and currently is on a BiPAP pressure 15/11 cm of water and his AHI was in treatment is less than 5. He is using his Simplus fullface mask however this needs to be changed knowing that the patient is having some leaks around the mask. No major edema in lower extremities. No altered mentation. No other complaints otherwise for now. The patient is seen again today 11/01/2017 in follow-up on the selective care unit. He is currently sitting up in a chair at the bedside. Awake and alert in no acute distress and breathing easier today as compared to yesterday. He did utilize his home CPAP machine last night. Currently he is on 2 L/m per nasal cannula maintaining good O2 saturations in the 90s. He's been afebrile. Slightly tachycardic. Initiated on amiodarone 400 mg twice a day. He is anticoagulated with Eliquis. He remains on diuretics in the form of Lasix 40 mg IV daily. White count 14.4. Creatinine 1.09. On 11/02/2017, the patient is resting comfortably in bed and he is hemodynamically stable and he has no specific complaints. Renal function is stable. White cell count is at 14.9 which is stable and unchanged. No signs of any septicemia. He is afebrile and is pulse oxing 94-95% liters about 2 by nasal cannula. He remains on IV Rocephin. He remains on amiodarone 400 mg by mouth twice a day in addition to metoprolol 53 g by mouth twice a day for rate control. The patient is also on Lasix 40 mg IV every 24 hours. Repeat chest x- ray shows mild CHF and left basilar atelectasis and small left-sided pleural effusion. On 11/03/2017 patient seen in follow-up on selective care unit. Awake, alert, still dyspneic with exertion, but overall reports his breathing is better, room air pulse ox is 90%, patient is wearing her oxygen intermittently, he is afebrile, hemodynamically stable, maintenance in atrial fibrillation with a controlled rate at 90 BPM. Lung sounds are positive for bibasilar crackles, no wheezes. Patient is on oral diuretics of Lasix 40 mg daily, and she continues to diurese well, weight is down to 93.5 kg. His labs were noted, WBCs 15.5, hemoglobin is 15.6, sodium is 134, potassium is 5.3, B1 is 29, creatinine 1.03. Discharge to [facility] rehab pending today, from pulmonary standpoint before discharge. Objective - Vital Signs Vital signs: Vital Signs Temp 97.0 F L 11/03/17 08:00 Pulse 88 11/03/17 08:00 Resp 20 11/03/17 08:00 BP 127/77 11/03/17 08:00 Pulse Ox 90 L 11/03/17 08:00 Intake & Output 11/02/17 11/03/17 11/03/17 18:59 06:59 18:59 Intake Total 900 180 Output Total 500 400 400 Balance 400 -400 -220 Weight 93.5 kg Intake: Oral 900 180 Output: Urine 500 400 400 Other: Voiding Method Urinal Urinal Urinal Incontinent Incontinent Incontinent # Voids 2 - Exam Obese, comfortable likely distress. Head exam was generally normal. There was no scleral icterus or corneal arcus. Mucous membranes were moist. Neck is short and supple and the patient is a crowding of the posterior oropharynx with a Mallampati class IV. No goiter or neck masses. Lungs sounds are diminished bilaterally along with bibasilar crackles Heart sounds are regular, distant, rate is controlled and the patient has no significant murmurs appreciated. Abdominal exam revealed normal bowel sounds. The abdomen was soft, non-tender, and without masses, organomegaly, or appreciable enlargement of the abdominal aorta. Examination of the extremities revealed easily palpable radial, femoral and pedal pulses. There was no cyanosis, clubbing or edema. Examination of the skin revealed no evidence of significant rashes, suspicious appearing nevi or other concerning lesions. Neurologic awake and alert and there is no focal neurological deficits. - Labs CBC & Chem 7: 11/03/17 05:50 11/03/17 05:50 Labs: Abnormal Lab Results - Last 24 Hours (Table) 11/02/17 11/03/17 11/03/17 Range/Units 19:05 05:50 05:50 WBC 15.5 H (3.8-10.6) k/uL Plt Count 545 H (150-450) k/uL Neutrophils # 11.1 H (1.3-7.7) k/uL Monocytes # 1.8 H (0-1.0) k/uL Eosinophils # 0.8 H (0-0.7) k/uL Sodium 134 L (137-145) mmol/L Potassium 5.3 H (3.5-5.1) mmol/L Chloride 96 L (98-107) mmol/L BUN 29 H (9-20) mg/dL Glucose 110 H (74-99) mg/dL Total Protein 6.0 L (6.3-8.2) g/dL Albumin 3.0 L (3.5-5.0) g/dL Urine Protein 1+ H (Negative) Amorphous Sediment Rare H (None) /hpf Urine Mucus Rare H (None) /hpf Microbiology - Last 24 Hours (Table) 10/28/17 21:05 Blood Culture - Preliminary Blood No Growth after 120 hours Assessment and Plan Plan: Assessment: 1 acute CHF, with mild systolic dysfunction and an ejection fraction of 40-45%. The patient CHF decompensated because of atrial fibrillation and rapid ventricular response. The patient is improving and the patient is less short of breath with a combination of medication to control the rate and the patient is also on diuretics with IV Lasix. Follow-up chest x-ray shows mild CHF and mild small left-sided pleural effusion. 2 A. fib relation with rapid ventricular response, rate is controlled for now 3 COPD 4 mild aortic stenosis 5 prostate cancer 6 hypertension 7 hyperlipidemia 8 obstructive sleep apnea maintained on a BiPAP at a pressure 15/11 cm of water. 9 degenerative arthritis with bilateral hip replacement Plan Patient continues to improve, remains in A. fib with a controlled rate, dyspnea is improving, patient remains on oral diuretics. Denies any worsening dyspnea or chest pain. To the [facility] inpatient rehab is pending today, patient is stable for discharge today. Follow up with Dr. Esteves in the office in 7-10 days. He was given a prescription for Anoro Ellipta inhaler 1 puff daily. I performed a history & physical examination of the patient and discussed their management with my nurse practitioner, Komal Williamson. I reviewed the nurse practitioner's note and agree with the documented findings and plan of care. Lung sounds are positive a few bibasilar crackles. The findings and the impression was discussed with the patient. I attest to the documentation by the nurse practitioner. Time with Patient: Less than 30
--- NOTE | 2017-11-03 14:08 | P.DS ---
Providers Date of admission: 10/28/17 18:25 Expected date of discharge: 11/03/17 Attending physician: Vanessa Macias Consults: 10/28/17 18:25 Consult Physician Urgent Consulting Provider: Delvis Nieves Consult Reason/Comments: Digestive heart failure, atrial fibrillation with RVR, elevated troponin Do you want consulting provider notified?: Yes 10/30/17 15:19 Consult Physician Routine Consulting Provider: Jeanie Esteves Consult Reason/Comments: Abnormal Chest Xray Do you want consulting provider notified?: Yes 10/31/17 12:55 Consult Physician Routine Consulting Provider: Eris Downey Consult Reason/Comments: inpatient rehab eval Do you want consulting provider notified?: Yes Primary care physician[facility]: Discharge diagnosis 1. Atrial fibrillation with rapid ventricular response: Patient does have history of paroxysmal atrial fibrillation. Was not on coagulation due to high risk of fall. EKG completed emergency room showing A. fib with RVR. Cardiology is following. Cardiology has added new medications which include amiodarone 400 mg twice a day, Lopressor 50 mg twice a day and Eliquis for anticoagulation 2. Elevated troponin. Troponin level 0.043, 0.055 and 0.067. Evaluated by cardiology 3. Leukocytosis. Concerns for possible developing pneumonia. Urine culture negative and blood culture negative. She was on Rocephin during hospitalization. White count increased to 15.5. Will continue Ceftin for 10 more days 4. History of prostate cancer 5. History of hyperlipidemia. Continue statin 6. History of essential hypertension. Patient currently on Coreg and hydrochlorothiazide 7. History of cardiomyopathy and unknown if it is ischemic or nonischemic. EF of 40-45% 8. Hyponatremia: Sodium 134 at discharge. Hydrochlorothiazide discontinued during this admission 9. Possible acute systolic CHF exacerbation: BMP 2400. Patient received IV Lasix during this admission. Cardiology is switched him over to Lasix 40 mg by mouth daily. Weight has decreased from 101.4 kg to 93.5 kg 10. Hyperkalemia even while receiving Lasix. Will give a dose of Kayexalate prior to discharge. Follow-up potassium level at [facility] course This is an 86-year-old male who presented to the emergency room with palpitations and feeling short of breath. Patient has a known history of atrial fibrillation but not on any anticoagulation due to high risk of falls. Other medical history includes prostate cancer, hyperlipidemia, hypertension, sleep apnea and IBS. EKG on admission showed A. fib with RVR. Cardiology was consulted and patient was placed on Cardizem drip. Chest x-ray completed in ER showing correlation for CHF exacerbation as there is cardiomegaly with suspected new central vascular congestion and persistent small bilateral pleural effusions on back on a chronic emphysematous changes. Patient was given 40 mg IV Lasix in the emergency room. Troponin levels drawn 0.043, 0.055 and 0.067, cardiology following. Per cardiology Cardizem drip has been DC'd and patient started on amiodarone bolus and drip. White blood cell on admission 15.8. Rocephin has been ordered for antibiotic. Urine and blood cultures have been ordered along with two-view chest x-ray. Patient denies chest pain at this time and states shortness of breath has improved. Patient denies any urinary symptoms. Patient denies nausea vomiting or diarrhea. 10/30/2017 patient remains atrial fibrillation noted on telemetry heart rate is controlled. Cardiology has discontinued the amiodarone drip. And started him on oral amiodarone. Cardiology recommending to monitor patient for another 24 hours. He denies any chest pain or shortness of breath. Denies any nausea or vomiting. Denies any bowel movement changes or urinary symptoms. 10/31/2017 patient has no new complaints. 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 Heart rate mostly trolled. He does have a few heart rates around 108. Patient hypotensive this morning with a BP of 90/56. Hydrochlorothiazide discontinued yesterday due to sodium level 131. White count has decreased from 15.8 14.9. Awaiting pulmonary consult. Patient denies any chest pain shortness of breath or cough. Denies any nausea or vomiting. Reports having bowel movements. Denies any difficulty urinating.. Patient is down to 2 L oxygen satting at 92% On 11/01/2017 patient is alert and oriented 3 he is complaining of generalized weakness otherwise denies any specific complaints is no chest pain or shortness of breath no dizziness no headache no fever or chills no cough no nausea or vomiting no abdominal pain and no urinary symptoms On 11/02/2017 patient is alert and oriented 3 in no apparent distress complaining of generalized weakness complaining of frequency was urination otherwise denies any complaints there is no fever or chills no headache no dizziness no chest pain no shortness of breath no cough no nausea or vomiting no abdominal pain he is complaining of frequency with urination but no urgency and no urination. White blood count remains elevated at 14.9 there is no clear source of infection. Patient was treated for atrial fibrillation with rapid ventricular response during this admission. He had been on IV Cardizem drip and then switched over to amiodarone drip. Cardiology followed closely and did start him on amiodarone 400 mg twice a day as well as Lopressor 50 mg twice a day. Patient remains in atrial fibrillation but rate is controlled. He denies any chest pain or shortness of breath. Both cardiology and pulmonary services have cleared him for discharge. Pulmonary service was consulted in regards to abnormal chest x-ray which had shown findings of possible CHF and possible infiltrate. Patient also had an elevated white count. And was started on IV Rocephin. Chest x-ray from the show findings are most consistent with mild heart failure, small left effusion and left basilar atelectasis. Patient' s symptoms have improved. He was seen by Dr. Churchill and is a candidate for inpatient rehab. Patient will be discharged to [facility] inpatient rehab for further physical therapy and rehab. Patient will continue 10 more days of Ceftin for possible pneumonia. Also, continue with new cardiac meds. Also note that the Eliquis does have a 400 co-pay. Case discussed with case work aide and cardiology nurse practitioner. Cardiology nurse practitioner recommends patient stays on the Eliquis while he is undergoing rehab. They will supply patient with samples. And then discussed possibly switching patient over to Coumadin at a later date. Patient is medical stable to be discharged to inpatient rehab at [facility] under Dr. Downey I performed an examination of the patient and discussed their management with the physician Drawbridge Operator. I have reviewed the Physician Drawbridge Operator's notes and agree with the documented findings and plan of care Patient Condition at Discharge: Stable Plan - Discharge Summary Discharge Rx Participant: Yes New Discharge Prescriptions: New Umeclidinium Brm/Vilanterol Tr [Anoro Ellipta 62.5-25 Mcg INH] 1 puff INHALATION DAILY #1 device Amiodarone [Cordarone] 400 mg PO BID tab Apixaban [Eliquis] 2.5 mg PO BID #60 tab Cefuroxime Axetil [Ceftin] 500 mg PO BID #20 tab Furosemide [Lasix] 40 mg PO DAILY #30 tab Metoprolol Tartrate [Lopressor] 50 mg PO BID tab Polyethylene Glycol 3350 [Miralax] 17 gm PO DAILY powd.pack Continue CLIDINIUM-chlordiazePOXIDE [Librax] 1 - 2 tab PO DAILY Vit C/E/Zn/Coppr/Lutein/Zeaxan [Preservision Areds 2 Softgel] 1 cap PO BID Simvastatin [Zocor] 40 mg PO HS Sertraline [Zoloft] 50 mg PO HS Finasteride [Proscar] 5 mg PO DAILY Tamsulosin HCl [Flomax] 0.4 mg PO HS Gabapentin [Neurontin] 200 mg PO BID Ergocalciferol (Vitamin D2) [Vitamin D2] 50,000 unit PO MO Albuterol Inhaler [Ventolin Hfa Inhaler] 1 - 2 puff INHALATION Q6HR PRN #1 inhaler PRN Reason: Shortness Of Breath Aspirin [Adult Low Dose Aspirin EC] 81 mg PO DAILY Budesonide-Formot 160-4.5 Mcg [Symbicort 160-4.5 Mcg Inhaler] 2 puff INHALATION RT-BID Ipratropium-Albuterol Nebulize [Duoneb 0.5 mg-3 mg/3 ml Soln] 3 ml INHALATION RT-BID PRN PRN Reason: Shortness Of Breath Zolpidem [Ambien] 5 mg PO HS #3 tab Discontinued Hydrochlorothiazide [Hydrodiuril] 12.5 mg PO DAILY Carvedilol [Coreg] 12.5 mg PO BID Potassium 5,000 units PO DIRECTED Discharge Medication List CLIDINIUM-chlordiazePOXIDE [Librax] 1 - 2 tab PO DAILY 07/12/17 [History] Ergocalciferol (Vitamin D2) [Vitamin D2] 50,000 unit PO MO 07/12/17 [History] Finasteride [Proscar] 5 mg PO DAILY 07/12/17 [History] Gabapentin [Neurontin] 200 mg PO BID 07/12/17 [History] Sertraline [Zoloft] 50 mg PO HS 07/12/17 [History] Simvastatin [Zocor] 40 mg PO HS 07/12/17 [History] Tamsulosin HCl [Flomax] 0.4 mg PO HS 07/12/17 [History] Vit C/E/Zn/Coppr/Lutein/Zeaxan [Preservision Areds 2 Softgel] 1 cap PO BID 07/12 [History] Albuterol Inhaler [Ventolin Hfa Inhaler] 1 - 2 puff INHALATION Q6HR PRN #1 inhaler 07/15/17 [Rx] Aspirin [Adult Low Dose Aspirin EC] 81 mg PO DAILY 10/28/17 [History] Budesonide-Formot 160-4.5 Mcg [Symbicort 160-4.5 Mcg Inhaler] 2 puff INHALATION RT-BID 10/28/17 [History] Ipratropium-Albuterol Nebulize [Duoneb 0.5 mg-3 mg/3 ml Soln] 3 ml INHALATION RT -BID PRN 10/28/17 [History] Umeclidinium Brm/Vilanterol Tr [Anoro Ellipta 62.5-25 Mcg INH] 1 puff INHALATION DAILY #1 device 10/31/17 [Rx] Amiodarone [Cordarone] 400 mg PO BID tab 11/03/17 [Rx] Apixaban [Eliquis] 2.5 mg PO BID #60 tab 11/03/17 [Rx] Cefuroxime Axetil [Ceftin] 500 mg PO BID #20 tab 11/03/17 [Rx] Furosemide [Lasix] 40 mg PO DAILY #30 tab 11/03/17 [Rx] Metoprolol Tartrate [Lopressor] 50 mg PO BID tab 11/03/17 [Rx] Polyethylene Glycol 3350 [Miralax] 17 gm PO DAILY powd.pack 11/03/17 [Rx] Zolpidem [Ambien] 5 mg PO HS #3 tab 11/03/17 [Rx] Follow up Appointment(s)/Referral(s): Vanessa Macias MD [Primary Care Provider] - 11/07/17 11:15 am (Friday) Jeanie Esteves MD [STAFF PHYSICIAN] - 1 Week Vinh Schaffer MD [STAFF PHYSICIAN] - 1 Week Activity/Diet/Wound Care/Special Instructions: Diet: cardiac Activity: as tolerated Discharge patient to [facility] facility under Dr. Downey Patient was started on Eliquis for anticoagulation regarding the atrial fibrillation. There is a $400 co-pay. Case discussed with case work aide and cardiology. Cardiology is recommending to continue the Eliquis at rehab and will have patient follow-up in the office for samples. And then we'll likely transition him to Coumadin at a later date Discharge Disposition: OTHER INSTITUTION NOT DEFINED
[2017-11-03 15:57] VITALS: BP 132/81; PULSE 95; RESP 18
[2017-11-04] MEDS ORDERED: FUROSEMIDE 40 MG TAB PO SCH (09:00)
== END 2017-11-03 17:42 | DRG 308 ==
LOC: EC 14:50 → 6SEL 18:25
PROVIDERS: ADMIT Internal Medicine; ATTEND Internal Medicine
PROC: 5A09457 Assistance with Respiratory Ventilation, 24-96 Consecutive Hours, Continuous Positive Airway Pressure (ICD-10-PCS; principal; 2017-10-29)
DX: I48.2 Chronic atrial fibrillation (principal); I50.23 Acute on chronic systolic (congestive) heart failure; J96.01 Acute respiratory failure with hypoxia; E87.1 Hypo-osmolality and hyponatremia; J98.11 Atelectasis; I42.9 Cardiomyopathy, unspecified; I11.0 Hypertensive heart disease with heart failure; J44.9 Chronic obstructive pulmonary disease, unspecified; E87.5 Hyperkalemia; I95.9 Hypotension, unspecified; I35.0 Nonrheumatic aortic (valve) stenosis; G47.33 Obstructive sleep apnea (adult) (pediatric); E78.5 Hyperlipidemia, unspecified; M19.91 Primary osteoarthritis, unspecified site; D72.829 Elevated white blood cell count, unspecified; R77.9 Abnormality of plasma protein, unspecified; K58.9 Irritable bowel syndrome, unspecified; E66.9 Obesity, unspecified; Z68.29 Body mass index [BMI] 29.0-29.9, adult; Z79.82 Long term (current) use of aspirin; Z79.51 Long term (current) use of inhaled steroids; Z79.899 Other long term (current) drug therapy; Z85.46 Personal history of malignant neoplasm of prostate; Z87.891 Personal history of nicotine dependence; Z96.643 Presence of artificial hip joint, bilateral; Z87.01 Personal history of pneumonia (recurrent); Z90.49 Acquired absence of other specified parts of digestive tract; Z88.5 Allergy status to narcotic agent; Z80.0 Family history of malignant neoplasm of digestive organs; Z82.3 Family history of stroke; Z91.81 History of falling
CPT/HCPCS: 36415; 71045; 71046; 80053; 80061; 81001; 82550; 82553; 83735; 83880; 84443; 84484; 85025; 85610; 85730; 87040; 87086; 93005; 94640; 94760; 96361; 96365; 96366; 96375; 96376; 99291